=== PATIENT | male | born 1935 | race Caucasian/White ===

== ENCOUNTER 2017-01-14 12:52 | Inpatient (IN) | payer OTHER ==
[2017-01-14] MEDS ORDERED: PIPERACILLIN/TAZOBACTAM 4.5 GM VIAL IVPB ONE (13:28)
[2017-01-14] MEDS ORDERED: ACETAMINOPHEN INJECTION 100 ML IVPB ONE (13:46)
[2017-01-14] MEDS ORDERED: PIPERACILLIN/TAZOB 4.5 GM 100 ML IVPB ONE (13:46)
[2017-01-14] MEDS ORDERED: METRONIDAZOLE 500 MG PREMIXED 100 ML IVPB ONE (13:46)
[2017-01-14 13:52] LABS: MCH 28.8 pg (25.7-33.7); MCHC 32.4 g/dl (32.0-35.9); MEAN CELL VOLUME 89.1 fl (80-96); MEAN PLT VOLUME 7.6 fl (7.5-11.1); PLATELET COUNT 180 K/MM3 (134-434); RDW 16.8 % (11.9-15.9); WHITE BLOOD COUNT 20.3 K/mm3 (4.0-10.0)
[2017-01-14] MEDS ORDERED: ACETAMINOPHEN 1000 MG/100 ML VIAL (NON FORMULARY) IVPB ONE (13:55)
[2017-01-14 13:58] LABS: URINE APPEARANCE CLOUDY; URINE BILIRUBIN NEGATIVE (NEGATIVE); URINE COLOR DKYELLOW; URINE GLUCOSE (UA) 3+ (NEGATIVE); URINE KETONE TRACE (NEGATIVE); URINE NITRITE NEGATIVE (NEGATIVE); URINE UROBILINOGEN NEGATIVE E.U./dl (0.2-1.0)
--- NOTE | 2017-01-14 13:58 | PDOC ---
History of Present Illness - General Stated Complaint: SOB Time Seen by Provider: 01/14/17 13:10 History Source: Patient Exam Limitations: No Limitations - History of Present Illness Travel History: No Initial Comments: 01/14/17 13:58 patient brought by family to emergency Department for worsening abdominal pain, shortness of breath, and high fevers. Was seen by his PMD, Dr. Cadena and prescribed Levaquin for presumed colitis 2 days ago. Has had 2 doses, but his symptoms have progressively become worse. Has complained of abdominal pain, has some distention, and constipation. Denies bleeding from bowels, no diarrhea. Consider fevers were yesterday to received in ER today at 102.6. Has COPD that reports has become mildly short of breath without worsened cough. Denies earache sore throat pain. Has urinary incontinence no complaints of pain or burning. Timing/Duration: reports: getting worse, changing over time Quality: reports: moderate, severe, cramping Abdominal Pain Onset Location: reports: generalized abdomen Pain Radiation: reports: no radiation Activities at Onset: reports: none Past History - Travel Traveled outside of the country in the last 30 days: No Close contact w/someone who was outside of country & ill: No - Past Medical History Allergies/Adverse Reactions: Allergies Allergy/AdvReac Type Severity Reaction Status Date / Time No Known Allergies Allergy Verified 01/14/17 13:31 Home Medications: Ambulatory Orders Aspirin [ASA -] 81 mg PO DAILY 08/05/13 Atenolol [Tenormin -] 25 mg PO DAILY 08/05/13 Furosemide [Lasix -] 40 mg PO DAILY 08/05/13 Hydrocodone Bit/Acetaminophen [Vicodin Es 7.5-750mg -] 1 tab PO Q8H PRN Potassium Chloride [Klor-Con M10] 30 meq PO DAILY 08/05/13 Simvastatin [Zocor -] 40 mg PO HS 08/05/13 Triamcinolone 0.1% Cream [Aristocort 0.1% Cream -] 1 applic TP DAILY #30 gm Fenofibrate Nanocrystallized [Fenofibrate] 145 mg PO DAILY 01/14/17 Furosemide [Lasix] 20 mg PO HS 01/14/17 Glipizide/Metformin HCl [Glipizide-Metformin 5-500 mg] 1 each PO TID 01/14/17 Levofloxacin [Levaquin] 500 mg PO DAILY 01/14/17 Mirabegron [Myrbetriq] 25 mg PO DAILY 01/14/17 Oxybutynin Chloride [Ditropan Xl] 10 mg PO DAILY 01/14/17 Anemia: No Asthma: Yes Cancer: No Cardiac Disorders: No (MILD CHF) CVA: No COPD: Yes CHF: Yes Dementia: No Diabetes: Yes (SINCE 2012-STARTED MEDS) GI Disorders: No Disorders: No HTN: Yes Hypercholesterolemia: Yes Liver Disease: No Seizures: No Thyroid Disease: No - Surgical History Abdominal Surgery: No Appendectomy: No Cardiac Surgery: No Cholecystectomy: No Lung Surgery: No Neurologic Surgery: No Orthopedic Surgery: No - Psycho/Social/Smoking Cessation Hx Suicidal Ideation: No Smoking History: Former smoker Have you smoked in the past 12 months: No If you are a former smoker, when did you quit?: 20 YRS Information on smoking cessation initiated: No Hx Alcohol Use: No Drug/Substance Use Hx: No Substance Use Type: Alcohol Abd/GI Specific PMHX - Complaint Specific PMHX Colitis: Yes Review of Systems - Review of Systems Able to Perform ROS?: Yes Is the patient limited [place] proficient: Yes Constitutional: Yes: Symptoms Reported, See HPI, Chills, Fever, Malaise, Weakness HEENTM: Yes: See HPI. No: Symptoms Reported Respiratory: Yes: Symptoms reported, See HPI, Cough, Orthopnea, Shortness of Breath. No: Wheezing Cardiac (ROS): No: Symptoms Reported ABD/GI: Yes: Symptoms Reported, See HPI, Abdominal Distended, Nausea, Poor Appetite, Abdominal cramping : Yes: Incontinence, Urgency, Other. No: Symptoms Reported Musculoskeletal: Yes: Symptoms Reported, Muscle Weakness Integumentary: No: Symptoms Reported Neurological: Yes: See HPI. No: Symptoms reported All Other Systems: Reviewed and Negative *Physical Exam - Vital Signs Last Vital Signs Temp Pulse Resp BP Pulse Ox 102.7 F H 109 H 22 115/63 100 01/14/17 12:55 01/14/17 12:55 01/14/17 12:55 01/14/17 12:55 01/14/17 12:55 - Physical Exam General Appearance: Yes: Nourished, Appropriately Dressed, Apparent Distress, Moderate Distress, Severe Distress HEENT: positive: SHREYAS, Normal ENT Inspection, TMs Normal, Pharynx Normal Neck: positive: Supple. negative: Lymphadenopathy (R), Lymphadenopathy (L) Respiratory/Chest: positive: Lungs Clear (difficult to assess secondary to patent abdominal girth and poor inspiratory effort), Accessory Muscle Use. negative: Normal Breath Sounds, Wheezing Cardiovascular: positive: Regular Rhythm Gastrointestinal/Abdominal: positive: Tender, Protuberent, Distended, Tenderness (diffuse). negative: Normal Bowel Sounds, Guarding Extremity: negative: Normal Capillary Refill (diminished, PVD color changes below knee ), Normal Inspection, Normal Range of Motion (limited due to PVD/ systemic illness) Integumentary: positive: Dry, Warm, Pale, Clammy, Diaphoresis, Swelling Neurologic: positive: derrick man II-XII NML intact, Fully Oriented, Alert, Normal Mood/ Affect, Normal Response, Motor Strength / ED Treatment Course - LABORATORY CBC & Chemistry Diagram: 01/14/17 13:40 01/14/17 13:40 - RADIOLOGY Radiology Studies Ordered: Category Date Time Status CHEST X-RAY PORTABLE* [RAD] Stat Radiology 01/14/17 13:28 Ordered Progress Note - Progress Note Progress Note: Abdominal distention/questionable colitis. Will provide septic workup as patient 's temperature 102.7 rectal, labs obtained, and will start prophylactic antibiotics IV/Tylenol IV for fevers. Will obtain CT Medical Decision Making - Medical Decision Making 01/14/17 17:32 CAT scan of abdomen reveals is 0.7 cm left ureteral stone with mild hydronephrosis and cholelithiasis . No other intra-abdominal pathology including abscess or obstruction. Discussed case with Joaquin. who will admit patient to telemetry for further antibiotics and evaluation. 01/14/17 18:26 01/14/17 18:53 01/14/17 18:54 *DC/Admit/Observation/Transfer Diagnosis at time of Disposition: Sepsis Qualifiers: Sepsis type: sepsis due to unspecified organism Qualified Code(s): A41.9 - Sepsis, unspecified organism - Discharge Dispostion Condition at time of disposition: Stable Admit: Yes
[2017-01-14 14:03] LABS: VENOUS BLOOD GAS HCO3 24.3 meq/L (19-25)
[2017-01-14 14:05] LABS: VENOUS PH 7.39 (7.32-7.42)
[2017-01-14 14:06] LABS: INR 1.44 (0.82-1.09)
[2017-01-14 14:07] LABS: URINE BLOOD 2+ (NEGATIVE); URINE LEUK ESTERASE TRACE (NEGATIVE); URINE PROTEIN 2+ (NEGATIVE)
[2017-01-14 14:09] LABS: ACTIVATED PTT 30.8 SECONDS (26.9-34.4); URINE MUCUS RARE; URINE RBC 39 /hpf (0-3); URINE WBC 26 /hpf (3-5); YEAST RARE
[2017-01-14 14:45] LABS: ALBUMIN 3.1 g/dl (3.4-5.0); ALK PHOS 58 U/L (45-117); ANION GAP 14 (8-16); CALCIUM 9.3 mg/dL (8.5-10.1); CO2 24 mmol/L (21-32); GLUCOSE,RANDOM 174 mg/dL (74-106); SGOT/AST 28 U/L (15-37); SGPT/ALT 25 U/L (12-78)
[2017-01-14 14:47] LABS: TROPONIN I < 0.02 ng/ml (0.00-0.05)
--- NOTE | 2017-01-14 15:28 | EKG ---
Test Reason : Blood Pressure : / mmHG Vent. Rate : 108 BPM Atrial Rate : 108 BPM P-R Int : 148 ms QRS Dur : 130 ms QT Int : 358 ms P-R-T Axes : 025 087 040 degrees QTc Int : 479 ms SINUS TACHYCARDIA RIGHT BUNDLE BRANCH BLOCK ABNORMAL ECG WHEN COMPARED WITH ECG OF 20-OCT-2010 15:11, RIGHT BUNDLE BRANCH BLOCK HAS REPLACED INCOMPLETE RIGHT BUNDLE BRANCH BLOCK Confirmed by DANNI PRATHER MD ([id number]) on 01/14/2017 3:27:52 PM Referred By: Confirmed By:DANNI PRATHER MD
--- NOTE | 2017-01-14 18:37 | HP ---
Admitting History and Physical - Primary Care Physician PCP: Mohamud Cadena - Admission Chief Complaint: abd/bck pain, malaise, chills for 4-5 days. History of Present Illness: left sided back pain, abd. pain and distension for 4-5 days. today he felt very weak with chills, nausea so came to er. last BM 6 days ago. saw yesterday, started levaquin 500 mg po. History Source: Patient, Family Member Limitations to Obtaining History: No Limitations - Past Medical History Cardiovascular: Yes: CHF (nuclear stress test 11.16 EF 68%, no ischemia), HTN Pulmonary: Yes: Asthma, COPD Renal/: Yes: Renal Calculi Musculoskeletal: Yes: Osteoarthritis, Other (spinal stenosis) Endocrine: Yes: Diabetes Mellitus, Other (obesity) - Past Surgical History Additional Past Surgical History: lithotripsy over 10 yrs ago - Smoking History Smoking history: Former smoker Have you smoked in the past 12 months: No If you are a former smoker, when did you quit?: 20 YRS - Alcohol/Substance Use Hx Alcohol Use: No - Social History Usual Living Arrangement: Yes: With Spouse ADL: Independent History of Recent Travel: No Home Medications - Allergies Allergies/Adverse Reactions: Allergies Allergy/AdvReac Type Severity Reaction Status Date / Time No Known Allergies Allergy Verified 01/14/17 13:31 - Home Medications Home Medications: Ambulatory Orders Aspirin [ASA -] 81 mg PO DAILY 08/05/13 Atenolol [Tenormin -] 25 mg PO DAILY 08/05/13 Furosemide [Lasix -] 40 mg PO DAILY 08/05/13 Hydrocodone Bit/Acetaminophen [Vicodin Es 7.5-750mg -] 1 tab PO Q8H PRN Potassium Chloride [Klor-Con M10] 30 meq PO DAILY 08/05/13 Simvastatin [Zocor -] 40 mg PO HS 08/05/13 Triamcinolone 0.1% Cream [Aristocort 0.1% Cream -] 1 applic TP DAILY #30 gm Fenofibrate Nanocrystallized [Fenofibrate] 145 mg PO DAILY 01/14/17 Furosemide [Lasix] 20 mg PO HS 01/14/17 Glipizide/Metformin HCl [Glipizide-Metformin 5-500 mg] 1 each PO TID 01/14/17 Levofloxacin [Levaquin] 500 mg PO DAILY 01/14/17 Mirabegron [Myrbetriq] 25 mg PO DAILY 01/14/17 Oxybutynin Chloride [Ditropan Xl] 10 mg PO DAILY 01/14/17 Family Disease History - Family Disease History Family History: Unremarkable Review of Systems - Review of Systems Constitutional: reports: Chills, Fever, Loss of Appetite Neck: denies: No Symptoms Cardiovascular: denies: No Symptoms Respiratory: reports: Exercise Intolerance, Orthopnea Gastrointestinal: reports: Bloating, Constipation Genitourinary: denies: No Symptoms Musculoskeletal: reports: Back Pain, Muscle Weakness Neurological: denies: No Symptoms Endocrine: denies: No Symptoms Psychiatric: denies: No Symptoms Physical Examination Vital Signs: Vital Signs Temperature 98.2 F 01/14/17 17:31 Pulse Rate 78 01/14/17 17:31 Respiratory Rate 18 01/14/17 17:37 Blood Pressure 104/61 01/14/17 17:31 O2 Sat by Pulse Oximetry (%) 100 01/14/17 17:37 Findings/Remarks: 102 temp on arrival Constitutional: Yes: Calm, Obese Eyes: Yes: Conjunctiva Clear HENT: Yes: Atraumatic Neck: Yes: Trachea Midline Cardiovascular: Yes: Regular Rate and Rhythm Respiratory: Yes: CTA Bilaterally Gastrointestinal: Yes: Normal Bowel Sounds, Abdomen, Obese, Distention, Tenderness (LLQ), Other (left sided tenderness). No: Tenderness, Rebound Musculoskeletal: Yes: Back Pain, Joint Stiffness Extremities: Yes: Other (chronic stasis dermatitis) Edema: No Peripheral Pulses WNL: Yes Integumentary: Yes: WNL Neurological: Yes: WNL ...Motor Strength: WNL Psychiatric: Yes: WNL Labs: Laboratory Results - last 24 hr 01/14/17 01/14/17 01/14/17 13:40 13:40 13:40 WBC 20.3 H RBC 5.32 Hgb 15.3 Hct 47.4 MCV 89.1 MCHC 32.4 RDW 16.8 H Plt Count 180 MPV 7.6 Neutrophils % 89.0 H Lymphocytes % 3.0 L Monocytes % 5.0 Band Neutrophils 2.0 Differential Comment Manual diff done Reactive Lymphocytes 1 INR 1.44 H PTT (Actin FS) 30.8 VBG pH POC VBG pCO2 POC VBG pO2 Mixed VBG HCO3 Sodium Potassium Chloride Carbon Dioxide Anion Gap BUN Creatinine Creat Clearance w eGFR Random Glucose Lactic Acid Calcium Total Bilirubin AST ALT Alkaline Phosphatase Creatine Kinase Troponin I B-Natriuretic Peptide Total Protein Albumin Urine Color Dkyellow Urine Appearance Cloudy Urine pH 5.0 Ur Specific [place] 1.020 Urine Protein 2+ H Urine Glucose (UA) 3+ H Urine Ketones Trace H Urine Blood 2+ H Urine Nitrite Negative Urine Bilirubin Negative Urine Urobilinogen Negative Ur Leukocyte Esterase Trace H Urine RBC 39 Urine WBC 26 Ur Epithelial Cells Rare Urine Mucus Rare Urine Yeast Rare Blood Type Antibody Screen 01/14/17 01/14/17 01/14/17 13:40 13:40 13:40 WBC RBC Hgb Hct MCV MCHC RDW Plt Count MPV Neutrophils % Lymphocytes % Monocytes % Band Neutrophils Differential Comment Reactive Lymphocytes INR PTT (Actin FS) VBG pH POC VBG pCO2 POC VBG pO2 Mixed VBG HCO3 Sodium 139 Potassium 4.1 Chloride 101 Carbon Dioxide 24 Anion Gap 14 BUN 50 H Creatinine 3.0 H Creat Clearance w eGFR 20.24 Random Glucose 174 H Lactic Acid 1.416 Calcium 9.3 Total Bilirubin 1.0 AST 28 ALT 25 Alkaline Phosphatase 58 Creatine Kinase 93 Troponin I < 0.02 B-Natriuretic Peptide 1680.78 H Total Protein 7.0 Albumin 3.1 L Urine Color Urine Appearance Urine pH Ur Specific [place] Urine Protein Urine Glucose (UA) Urine Ketones Urine Blood Urine Nitrite Urine Bilirubin Urine Urobilinogen Ur Leukocyte Esterase Urine RBC Urine WBC Ur Epithelial Cells Urine Mucus Urine Yeast Blood Type A POSITIVE Antibody Screen Negative 01/14/17 01/14/17 13:59 15:39 WBC RBC Hgb Hct MCV MCHC RDW Plt Count MPV Neutrophils % Lymphocytes % Monocytes % Band Neutrophils Differential Comment Reactive Lymphocytes INR PTT (Actin FS) VBG pH 7.39 POC VBG pCO2 41.4 POC VBG pO2 47.5 Mixed VBG HCO3 24.3 Sodium Potassium Chloride Carbon Dioxide Anion Gap BUN Creatinine Creat Clearance w eGFR Random Glucose Lactic Acid 1.240 Calcium Total Bilirubin AST ALT Alkaline Phosphatase Creatine Kinase Troponin I B-Natriuretic Peptide Total Protein Albumin Urine Color Urine Appearance Urine pH Ur Specific [place] Urine Protein Urine Glucose (UA) Urine Ketones Urine Blood Urine Nitrite Urine Bilirubin Urine Urobilinogen Ur Leukocyte Esterase Urine RBC Urine WBC Ur Epithelial Cells Urine Mucus Urine Yeast Blood Type Antibody Screen Imaging - Results Chest X-ray: Report Reviewed (mild cardiomegaly) Cat Scan: Report Reviewed (dist left ureter partially obstructing stone with associated moderate hydronephrosis and stranding) Problem List - Problems (1) Sepsis Code(s): A41.9 - SEPSIS, UNSPECIFIED ORGANISM Qualifiers: Sepsis type: sepsis due to unspecified organism Qualified Code(s): A41.9 - Sepsis, unspecified organism (2) Renal stones Code(s): N20.0 - CALCULUS OF KIDNEY (3) Hydronephrosis of left kidney Code(s): N13.30 - UNSPECIFIED HYDRONEPHROSIS (4) COPD (chronic obstructive pulmonary disease) Code(s): J44.9 - CHRONIC OBSTRUCTIVE PULMONARY DISEASE, UNSPECIFIED Qualifiers : COPD type: unspecified COPD Qualified Code(s): J44.9 - Chronic obstructive pulmonary disease, unspecified (5) HTN (hypertension) Code(s): I10 - ESSENTIAL (PRIMARY) HYPERTENSION Qualifiers: Hypertension type: essential hypertension Qualified Code(s): I10 - Essential (primary) hypertension (6) Obesity Code(s): E66.9 - OBESITY, UNSPECIFIED Qualifiers: Obesity type: due to excess calories Obesity severity: morbid Qualified Code(s): E66.01 - Morbid (severe) obesity due to excess calories (7) Diabetes mellitus Code(s): E11.9 - TYPE 2 DIABETES MELLITUS WITHOUT COMPLICATIONS Qualifiers: Diabetes mellitus type: type 2 Diabetes mellitus complication status: with unspecified complications Diabetes mellitus exterminator termite insulin use: with senior living use Qualified Code(s): E11.8 - Type 2 diabetes mellitus with unspecified complications; Z79.4 - skilled nursing (current) use of insulin (8) CHF (congestive heart failure) Code(s): I50.9 - HEART FAILURE, UNSPECIFIED Qualifiers: Congestive heart failure type: unspecified congestive heart failure type Congestive heart failure chronicity: chronic Qualified Code(s): I50.9 - Heart failure, unspecified Assessment/Plan gentle iv hydration iv abx adjusted to current renal fnct. (baseline creat. 1.4) f/up cultures ID/urology evaluation hold oral antiglycemics, lasix RISS/levemir
[2017-01-14 18:40] VITALS: BMI 40.7
[2017-01-14] MEDS ORDERED: OXYCODONE/APAP 5/325MG COMBO TABLET PO PRN (18:55)
[2017-01-14] MEDS ORDERED: SODIUM CHLORIDE 0.45% 1,000 ML IV SCH (19:00)
[2017-01-14] MEDS ORDERED: ACETAMINOPHEN 325 MG TABLET (FP) PO PRN ×2 (19:01→19:02)
[2017-01-14] MEDS ORDERED: oxyCODONE HCL 5 MG TABLET PO PRN ×2 (19:01→19:02)
[2017-01-14] MEDS: PIPERACILLIN/TAZOB 2.25 GM 50 ML IVPB SCH (20:21)
[2017-01-14] MEDS: ACETAMINOPHEN 325 MG TABLET (FP) PO PRN (20:23)
[2017-01-14] MEDS ORDERED: INSULIN (NOVOLOG) ASPART 100 UNITS/ML 10ML VIAL ONE (21:31)
[2017-01-14] MEDS: ATORVASTATIN CA 20 MG TABLET (FP) PO SCH (21:37)
[2017-01-14] MEDS: INSULIN SLIDING SCALE (NOVOLOG) 1 VIAL SQ SCH (21:38)
[2017-01-14] MEDS: INSULIN DETEMIR 100 UNITS/ML MDV SQ SCH (21:38)
[2017-01-14] MEDS: ALBUTEROL SO4 0.083% IH SOL 2.5 MG/3 ML VIAL.NEB. NEB PRN (22:42)
[2017-01-15] MEDS ORDERED: PIPERACILLIN/TAZOB 2.25 GM 2.25 GM in DEXTROSE 5%-WATER - 50 ML IVPB SCH (03:00)
[2017-01-15] MEDS: PIPERACILLIN/TAZOB 2.25 GM 50 ML IVPB SCH ×4 (03:26→21:47)
[2017-01-15] MEDS: INSULIN SLIDING SCALE (NOVOLOG) 1 VIAL SQ SCH ×4 (06:01→21:15)
[2017-01-15] MEDS: ALBUTEROL SO4 0.083% IH SOL 2.5 MG/3 ML VIAL.NEB. NEB PRN ×3 (06:15→22:11)
[2017-01-15 07:12] LABS: BASOPHIL 0.1 % (0-2.0); EOSINOPHIL 0.1 % (0-4.5); MCH 28.9 pg (25.7-33.7); MCHC 32.4 g/dl (32.0-35.9); MEAN PLT VOLUME 7.7 fl (7.5-11.1); NEUTROPHILS 88.1 % (42.8-82.8); PLATELET COUNT 159 K/MM3 (134-434); RDW 17.4 % (11.9-15.9)
[2017-01-15 07:43] LABS: INR 1.46 (0.82-1.09); PROTHROMBIN TIME (PATIENT) 16.2 SEC (9.98-11.88)
[2017-01-15 07:48] LABS: ALBUMIN 2.8 g/dl (3.4-5.0); CALCIUM 8.6 mg/dL (8.5-10.1); CREATININE 3.1 mg/dL (0.7-1.3)
[2017-01-15 07:50] LABS: BILIRUBIN,TOTAL 0.8 mg/dL (0.2-1.0); TOT PROT 6.3 g/dl (6.4-8.2)
--- NOTE | 2017-01-15 08:32 | PN ---
Progress Note, Physician Chief Complaint: ID Zomagdin now report of GNB in blood - Current Medication List Current Medications: Active Medications Acetaminophen (Tylenol -) 650 mg PO Q4H PRN PRN Reason: FEVER OR PAIN Last Admin: 01/14/17 20:23 Dose: 650 mg Acetaminophen (Tylenol -) 325 mg PO Q4H PRN PRN Reason: PAIN Stop: 01/17/17 19:00 Last Admin: 01/15/17 03:32 Dose: 325 mg Acetaminophen (Tylenol -) 650 mg PO Q4H PRN PRN Reason: PAIN Stop: 01/17/17 19:01 Albuterol Sulfate (Ventolin 0.083% Nebulizer Soln -) 1 amp NEB Q4H PRN PRN Reason: SHORT OF BREATH/WHEEZING Last Admin: 01/15/17 06:15 Dose: 1 amp Atorvastatin Calcium (Lipitor -) 20 mg PO HS [facility] Last Admin: 01/14/17 21:37 Dose: 20 mg Bisacodyl (Dulcolax -) 10 mg PO ONCE ONE Stop: 01/15/17 08:24 Piperacillin Sod/Tazobactam Sod (Zosyn 2.25gm Ivpb (Pre-Docked)) 50 mls @ 100 mls/hr IVPB Q6H-IV JAVY PRN Reason: Protocol Sodium Chloride (1/2 Normal Saline) 1,000 mls @ 75 mls/hr IV ASDIR JAVY Last Admin: 01/14/17 20:22 Dose: 75 mls/hr Insulin Aspart (Novolog Vial Sliding Scale -) 1 vial SQ ACHS JAVY PRN Reason: Protocol Last Admin: 01/15/17 06:01 Dose: Not Given Insulin Detemir (Levemir Vial) 10 units SQ HS [facility] Last Admin: 01/14/17 21:38 Dose: 10 units Oxycodone HCl (Roxicodone -) 5 mg PO Q4H PRN PRN Reason: PAIN SCALE 1-5 Last Admin: 01/15/17 03:31 Dose: 5 mg Oxycodone HCl (Roxicodone -) 10 mg PO Q4H PRN PRN Reason: PAIN SCALE 6-10 Last Admin: 01/14/17 20:22 Dose: 10 mg Polyethylene Glycol (Miralax (For Daily Use) -) 17 gm PO DAILY [facility] - Objective Vital Signs: Vital Signs Temperature 99.3 F 01/15/17 07:29 Pulse Rate 92 H 01/15/17 07:29 Respiratory Rate 18 01/15/17 07:29 Blood Pressure 101/57 01/15/17 07:29 O2 Sat by Pulse Oximetry (%) 97 01/14/17 20:27 Constitutional: Yes: Obese Neck: Yes: WNL, Supple Cardiovascular: Yes: S1, S2 Respiratory: Yes: WNL, Regular, CTA Bilaterally Gastrointestinal: Yes: WNL, Normal Bowel Sounds, Distention Edema: No Labs: CBC, BMP 01/15/17 06:10 01/15/17 06:10 INR, PTT INR 1.46 (0.82-1.09) H 01/15/17 06:10 Problem List - Problems (1) Hydronephrosis of left kidney Code(s): N13.30 - UNSPECIFIED HYDRONEPHROSIS (2) UTI (urinary tract infection) Code(s): N39.0 - URINARY TRACT INFECTION, SITE NOT SPECIFIED (3) Gram-positive bacteremia Code(s): A49.9 - BACTERIAL INFECTION, UNSPECIFIED Assessment/Plan Microbiology 01/14/17 13:40 Blood - Peripheral Venous Blood Culture - Preliminary Pending Organism 01/14/17 13:40 Blood - Peripheral Venous Blood Culture - Preliminary Pending Organism Laboratory Tests 01/14/17 01/14/17 01/15/17 13:40 13:40 06:10 WBC 20.3 H 18.0 H Hgb 14.1 Hct 43.6 Plt Count 159 INR BUN Creatinine Creat Clearance w eGFR Ur Leukocyte Esterase Trace H Urine RBC 39 Urine WBC 26 01/15/17 01/15/17 06:10 06:10 WBC Hgb Hct Plt Count INR 1.46 H BUN 56 H Creatinine 3.1 H Creat Clearance w eGFR 19.48 Ur Leukocyte Esterase Urine RBC Urine WBC Assessment Kidney stone hydronephrosis Urinary infection Gram positive in blood ? SCN contaminants Plan Continue Zosyn Urology evaluation Blood cultures Vancomcycin 1.5gr x 1 JOSE RAUL Garcia MD
[2017-01-15] MEDS ORDERED: BISACODYL 5 MG TABLET.DR (FP) PO ONE (08:45)
[2017-01-15] MEDS ORDERED: PIPERACILLIN/TAZOB 2.25 GM 50 ML IVPB SCH (09:00)
--- NOTE | 2017-01-15 09:02 | PN ---
Progress Note (short form) - Note Progress Note: Feels little more short of breath today. Has not had a BM for a week. CBC, BMP 01/15/17 06:10 01/15/17 06:10 Vital Signs Period Temp Pulse Resp BP Sys/[place] Pulse Ox Last 24 Hr 98.2 F-102.7 F 78-109 18-73 101-127/57-75 97-100 BCx GPC in clusters S1S2 RRR basal crackles Abd distended +BS no edema aaox3 Imp Obstructive uropathy Ureteral stones gram pos. bacteremia? DM Obesity h/o CHF COPD Constipation Plan iv abx urological procedure once bacteremia under control decrease iv fluids in view of breathing issues to avoid fluid overload hold oral antiglycemics laxatives Problem List - Problems (1) Sepsis Code(s): A41.9 - SEPSIS, UNSPECIFIED ORGANISM Qualifiers: Sepsis type: sepsis due to unspecified organism Qualified Code(s): A41.9 - Sepsis, unspecified organism (2) Renal stones Code(s): N20.0 - CALCULUS OF KIDNEY (3) Hydronephrosis of left kidney Code(s): N13.30 - UNSPECIFIED HYDRONEPHROSIS (4) COPD (chronic obstructive pulmonary disease) Code(s): J44.9 - CHRONIC OBSTRUCTIVE PULMONARY DISEASE, UNSPECIFIED Qualifiers : COPD type: unspecified COPD Qualified Code(s): J44.9 - Chronic obstructive pulmonary disease, unspecified (5) HTN (hypertension) Code(s): I10 - ESSENTIAL (PRIMARY) HYPERTENSION Qualifiers: Hypertension type: essential hypertension Qualified Code(s): I10 - Essential (primary) hypertension (6) Obesity Code(s): E66.9 - OBESITY, UNSPECIFIED Qualifiers: Obesity type: due to excess calories Obesity severity: morbid Qualified Code(s): E66.01 - Morbid (severe) obesity due to excess calories (7) Diabetes mellitus Code(s): E11.9 - TYPE 2 DIABETES MELLITUS WITHOUT COMPLICATIONS Qualifiers: Diabetes mellitus type: type 2 Diabetes mellitus complication status: with unspecified complications Diabetes mellitus alf insulin use: with alf use Qualified Code(s): E11.8 - Type 2 diabetes mellitus with unspecified complications; Z79.4 - terminal manager (current) use of insulin (8) CHF (congestive heart failure) Code(s): I50.9 - HEART FAILURE, UNSPECIFIED Qualifiers: Congestive heart failure type: unspecified congestive heart failure type Congestive heart failure chronicity: chronic Qualified Code(s): I50.9 - Heart failure, unspecified
[2017-01-15] MEDS ORDERED: SODIUM CHLORIDE 0.45% 1,000 ML IV SCH (09:03)
--- NOTE | 2017-01-15 09:37 | CON.NEP ---
Consult Consult Specialty:: Nephrology Referred by:: Dr Kenyon Reason for Consultation:: REMY on CKD - History of Present Illness Chief Complaint: fever chills History of Present Illness: 81 year old with DM HTN baseline Cr 1.03 sep 2016 obesity in with fever chills Has pos blood cultures gram pos cocci On Zosyn about to get his first vanco dose Blood cultures redrawn prior to vanco Unable to get asecond set Shaking with chills Voiding on his own Denies pain Had a ureteral stone 7mm with hydro Does not recall passing it - History Source History Provided By: Medical Record Limitations to Obtaining History: Other (pt too sick to give details) - Past Medical History Cardio/Vascular: Yes: CHF (nuclear stress test 11.16 EF 68%, no ischemia), HTN Pulmonary: Yes: Asthma, COPD Renal/: Yes: Renal Calculi Musculoskeletal: Yes: Osteoarthritis, Other (spinal stenosis) Endocrine: Yes: Diabetes Mellitus, Other (obesity) - Alcohol/Substance Use Hx Alcohol Use: No - Smoking History Smoking history: Former smoker Have you smoked in the past 12 months: No If you are a former smoker, when did you quit?: 20 YRS - Social History ADL: Independent History of Recent Travel: No Home Medications - Allergies Allergies/Adverse Reactions: Allergies Allergy/AdvReac Type Severity Reaction Status Date / Time No Known Allergies Allergy Verified 01/14/17 13:31 - Home Medications Home Medications: Ambulatory Orders Aspirin [ASA -] 81 mg PO DAILY 08/05/13 Atenolol [Tenormin -] 25 mg PO DAILY 08/05/13 Furosemide [Lasix -] 40 mg PO DAILY 08/05/13 Hydrocodone Bit/Acetaminophen [Vicodin Es 7.5-750mg -] 1 tab PO Q8H PRN Potassium Chloride [Klor-Con M10] 30 meq PO DAILY 08/05/13 Simvastatin [Zocor -] 40 mg PO HS 08/05/13 Triamcinolone 0.1% Cream [Aristocort 0.1% Cream -] 1 applic TP DAILY #30 gm Fenofibrate Nanocrystallized [Fenofibrate] 145 mg PO DAILY 01/14/17 Furosemide [Lasix] 20 mg PO HS 01/14/17 Glipizide/Metformin HCl [Glipizide-Metformin 5-500 mg] 1 each PO TID 01/14/17 Insulin (Levemir) [Levemir Flexpen -] 10 units SQ DAILY 01/14/17 Levofloxacin [Levaquin] 500 mg PO DAILY 01/14/17 Mirabegron [Myrbetriq] 25 mg PO DAILY 01/14/17 Oxybutynin Chloride [Ditropan Xl] 10 mg PO DAILY 01/14/17 Review of Systems Unable to obtain ROS, reason: cchills Nephrology Consult - Height Height: 5 ft 3 in - Weight Weight: 230 lb - BMI Body Mass Index (BMI): 40.7 - Lab Results CBC,BMP: CBC, BMP 01/15/17 06:10 01/15/17 06:10 Anion Gap: Anion Gap Anion Gap 13 (8-16) 01/15/17 06:10 - Imaging Chest X-ray: Report Reviewed Cat Scan: Report Reviewed - Physical Examination Vital Signs: Vital Signs Temperature 99.3 F 01/15/17 07:29 Pulse Rate 92 H 01/15/17 07:29 Respiratory Rate 18 01/15/17 07:29 Blood Pressure 101/57 01/15/17 07:29 O2 Sat by Pulse Oximetry (%) 97 01/14/17 20:27 Constitutional: Yes: Obese Respiratory: Yes: Wheezes Gastrointestinal: Yes: Abdomen, Obese, Other (non tender) Edema: Yes (trace) Assessment/Plan 81 year old with DM obesity In with REMY on ckd baselien cr 1.4 Now with pos blood cultures agree with vanco zosyn Follow cultures Strain all urine Document output Agree with lowering rate of IVF to 40/hr agree with holding lasix BP ok SEnd stone for stone analysis Urology eval Dose all meds for a CrCl of 30
[2017-01-15] MEDS: ACETAMINOPHEN 325 MG TABLET (FP) PO PRN (09:41)
[2017-01-15] MEDS: POLYETHYLENE GLYCOL 3350 119 GM BTL PO SCH (09:43)
[2017-01-15] MEDS ORDERED: VANCOMYCIN 1,500 MG in DEXTROSE 5%-WATER - 500 ML IVPB ONE (10:00)
[2017-01-15] MEDS ORDERED: ATENOLOL 25 MG TABLET (FP) PO SCH (10:00)
--- NOTE | 2017-01-15 10:51 | CONSULT ---
Consult Consult Specialty:: urology Reason for Consultation:: left ureteral calculus. - History of Present Illness Chief Complaint: left ureteral calculus History of Present Illness: 81 year old male with UTI and obstructing left ureteral calclulus. Tm101.7 WBC 18,000. patient states that he feels well. - History Source History Provided By: Patient Limitations to Obtaining History: No Limitations - Past Medical History Cardio/Vascular: Yes: CHF (nuclear stress test 11.16 EF 68%, no ischemia), HTN Pulmonary: Yes: Asthma, COPD Renal/: Yes: BPH, Renal Calculi, UTI Musculoskeletal: Yes: Osteoarthritis, Other (spinal stenosis) Endocrine: Yes: Diabetes Mellitus, Other (obesity) - Alcohol/Substance Use Hx Alcohol Use: No - Smoking History Smoking history: Former smoker Have you smoked in the past 12 months: No If you are a former smoker, when did you quit?: 20 YRS - Social History ADL: Independent History of Recent Travel: No Home Medications - Allergies Allergies/Adverse Reactions: Allergies Allergy/AdvReac Type Severity Reaction Status Date / Time No Known Allergies Allergy Verified 01/14/17 13:31 - Home Medications Home Medications: Ambulatory Orders Aspirin [ASA -] 81 mg PO DAILY 08/05/13 Atenolol [Tenormin -] 25 mg PO DAILY 08/05/13 Furosemide [Lasix -] 40 mg PO DAILY 08/05/13 Hydrocodone Bit/Acetaminophen [Vicodin Es 7.5-750mg -] 1 tab PO Q8H PRN Potassium Chloride [Klor-Con M10] 30 meq PO DAILY 08/05/13 Simvastatin [Zocor -] 40 mg PO HS 08/05/13 Triamcinolone 0.1% Cream [Aristocort 0.1% Cream -] 1 applic TP DAILY #30 gm Fenofibrate Nanocrystallized [Fenofibrate] 145 mg PO DAILY 01/14/17 Furosemide [Lasix] 20 mg PO HS 01/14/17 Glipizide/Metformin HCl [Glipizide-Metformin 5-500 mg] 1 each PO TID 01/14/17 Insulin (Levemir) [Levemir Flexpen -] 10 units SQ DAILY 01/14/17 Levofloxacin [Levaquin] 500 mg PO DAILY 01/14/17 Mirabegron [Myrbetriq] 25 mg PO DAILY 01/14/17 Oxybutynin Chloride [Ditropan Xl] 10 mg PO DAILY 01/14/17 Review of Systems - Review of Systems Constitutional: reports: Fever Genitourinary: reports: Flank Pain Physical Exam Vital Signs: Vital Signs Temperature 101.7 F H 01/15/17 09:45 Pulse Rate 90 01/15/17 09:45 Respiratory Rate 20 01/15/17 09:45 Blood Pressure 149/67 01/15/17 09:45 O2 Sat by Pulse Oximetry (%) 99 01/15/17 09:32 Constitutional: Yes: Well Nourished, No Distress, Calm Gastrointestinal: Yes: Soft Renal/: No: Bladder Distention, CVA Tenderness - Left, CVA Tenderness - Right , Bermudez Present Labs: CBC, BMP 01/15/17 06:10 01/15/17 06:10 Imaging - Results Cat Scan: Report Reviewed Problem List - Problems (1) Calculus of distal left ureter Assessment/Plan: patient with obstructing stone, UTI. clinical scenario consistent with urosepsis. Recommend urgent drainage. Patient ate this morning and cannot have general anesthesia for eight hours. Interventional radiology consulted for nephrostomy tube. SPoke with patient and his daughter. Hydration and antibiotics. Code(s): N20.1 - CALCULUS OF URETER
[2017-01-15 10:54] LABS: C-REACTIVE PROTEIN 29.9 MG/DL (0.00-0.3)
--- NOTE | 2017-01-15 15:03 | CONS ---
INFECTIOUS DISEASE CONSULT DATE OF CONSULTATION: DATE OF DICTATION: 01/15/2017 HISTORY OF PRESENT ILLNESS: This is an 81-year-old [place] male admitted with renal failure secondary to hydronephrosis who I am asked to see for positive blood cultures. He had presented to his primary care doctor with a 5-day history of abdominal and back pain with generalized malaise, intermittent chills, going on for 4-5 days. He also noted abdominal distention, noting that he has not had a bowel movement in a week. He saw Dr. Cadena who apparently started him on levofloxacin. He came to the emergency room where he had a CAT scan done, which showed a 7-mm distal left ureteral calculus with moderate hydronephrosis. Chololithiasis was also noted. The patient's temperature on admission was 102.7. He was empirically given Pipracil and tazobactam. As of this morning, 2 sets of blood cultures obtained on admission have gram-positive cocci in clusters, growing from anaerobic bottles in both sets. The patient has no history of urinary manipulation recently. The patient has no history of valvular heart disease. PAST MEDICAL HISTORY: Past medical history includes: 1. Congestive heart failure though nuclear stress test 10/16/ejection fraction 68% with no ischemia. 2. Hypertension 3. Asthma 4. COPD 5. Osteoarthritis 6. Spinal stenosis 7. Diabetes mellitus 8. Obesity 9. History of lithotripsy 10 years ago MEDICATIONS: 1. Aspirin 2. Atenolol 3. Lasix 4. Hydrocodone 5. Simvastatin 6. Fenofibrate 7. Glipizide 8. Metformin 9. Levothyroxine ALLERGIES: None known. SOCIAL HISTORY: Former smoker. [place] male. No recent travel. No history of alcohol use. FAMILY HISTORY: Family history reviewed and noncontributory. REVIEW OF SYSTEMS: Respiratory: No cough, no shortness of breath, no hemoptysis, sputum production. Cardiac: No chest pain, palpitations, syncope, murmur. GI: Abdominal distention, constipation, abdominal pain, currently minimal to none. Rectal: No blood per rectum, hematemesis. : No dysuria, hematuria or urinary frequency. PHYSICAL EXAMINATION: General: He was an alert male in no acute distress. Vital signs: Temperature was 99.3, pulse 92, blood pressure 100/57, respirations 18. O2 saturation 97%/2 liters. HEENT: Neck supple, no adenopathy. Lungs: Diminished breath sounds bilaterally. Heart: S1, S2, regular rhythm with no audible murmur. Abdomen: The abdomen was distended. Positive bowel sounds noted. No focal tenderness, guarding or rebound, palpable mass. Extremities: Without clubbing, cyanosis or edema. LABS: The white count is 20,000, hemoglobin 15.3, platelets 180, INR 1.46, BUN 56, creatinine 3.1. Liver enzymes within normal limits. Urinalysis: 39 RBCs, 26 WBCs, trace leukocyte esterase, 3+ glucose, 2+ protein. ASSESSMENT: 81-year-old male presents not feeling well with abdominal discomfort, fever, chills, abdominal distention, found to have a kidney stone with hydronephrosis and acute renal failure, complicating urinary tract infection, report of positive blood culture, gram positive cocci from anaerobic bottles/surprising and potentially could represent contamination with a coagulase-negative staphylococcus, but at this point needs treatment. . RECOMMENDATIONS: 1. As discussed with Dr. Chao, would continue him on Zosyn for gram- negative coverage of urinary tract pathogens, pending urine culture and add vancomycin based on body weight, 1.5 grams x 1 dose. Would 2. Would get repeat blood cultures on him before dosing with vancomycin. 3. Obtain a CRP level 4. Obtain a weight urology consult regarding management ureteral stone. RAIN SANTACRUZ M.D. BRIGIDA/[id number]
[2017-01-15] MEDS: INSULIN DETEMIR 100 UNITS/ML MDV SQ SCH (21:47)
[2017-01-15] MEDS: ATORVASTATIN CA 20 MG TABLET (FP) PO SCH (21:48)
[2017-01-16] MEDS: PIPERACILLIN/TAZOB 2.25 GM 50 ML IVPB SCH ×4 (03:16→21:20)
[2017-01-16] MEDS: INSULIN SLIDING SCALE (NOVOLOG) 1 VIAL SQ SCH ×4 (06:00→21:12)
[2017-01-16] MEDS: ALBUTEROL SO4 0.083% IH SOL 2.5 MG/3 ML VIAL.NEB. NEB PRN (07:05)
[2017-01-16 07:29] LABS: BASOPHIL 0.2 % (0-2.0); EOSINOPHIL 1.1 % (0-4.5); MCH 29.4 pg (25.7-33.7); MEAN CELL VOLUME 89.2 fl (80-96); MEAN PLT VOLUME 8.1 fl (7.5-11.1); NEUTROPHILS 79.9 % (42.8-82.8); PLATELET COUNT 125 K/MM3 (134-434); RDW 17.3 % (11.9-15.9); WHITE BLOOD COUNT 9.1 K/mm3 (4.0-10.0)
[2017-01-16 07:56] LABS: ALBUMIN 2.5 g/dl (3.4-5.0); BILIRUBIN,TOTAL 0.5 mg/dL (0.2-1.0); CALCIUM 8.4 mg/dL (8.5-10.1); CREATININE 2.3 mg/dL (0.7-1.3); TOT PROT 5.6 g/dl (6.4-8.2)
[2017-01-16] MEDS ORDERED: SODIUM PHOSPHATE/NA BIPHOS 133 ML ENEMA PR ONE (08:45)
--- NOTE | 2017-01-16 08:51 | PN ---
Progress Note (short form) - Note Progress Note: Still short of breath and constipated. Has had left nephrostomy tube placed by IR yesterday. Cystoscopy was also performed. CBC, BMP 01/16/17 05:35 01/16/17 05:35 BCx GPC in clusters Vital Signs Period Temp Pulse Resp BP Sys/Enamorado Pulse Ox Last 24 Hr 97.5 F-101.7 F 67-100 18-20 107-150/61-96 97-100 S1S2 RRR scattered wheezing Abd distended +BS Non tender no edema aaox3 Imp Obstructive uropathy Ureteral stones gram pos. bacteremia M Obesity h/o CHF COPD Constipation Plan iv abx f/up culture results add symbicort stop fluids internalize nephrostomy with stent placement in 7-10 days physical therapy enema Problem List - Problems (1) Sepsis Code(s): A41.9 - SEPSIS, UNSPECIFIED ORGANISM Qualifiers: Sepsis type: sepsis due to unspecified organism Qualified Code(s): A41.9 - Sepsis, unspecified organism (2) Renal stones Code(s): N20.0 - CALCULUS OF KIDNEY (3) Hydronephrosis of left kidney Code(s): N13.30 - UNSPECIFIED HYDRONEPHROSIS (4) COPD (chronic obstructive pulmonary disease) Code(s): J44.9 - CHRONIC OBSTRUCTIVE PULMONARY DISEASE, UNSPECIFIED Qualifiers : COPD type: unspecified COPD Qualified Code(s): J44.9 - Chronic obstructive pulmonary disease, unspecified (5) HTN (hypertension) Code(s): I10 - ESSENTIAL (PRIMARY) HYPERTENSION Qualifiers: Hypertension type: essential hypertension Qualified Code(s): I10 - Essential (primary) hypertension (6) Obesity Code(s): E66.9 - OBESITY, UNSPECIFIED Qualifiers: Obesity type: due to excess calories Obesity severity: morbid Qualified Code(s): E66.01 - Morbid (severe) obesity due to excess calories (7) Diabetes mellitus Code(s): E11.9 - TYPE 2 DIABETES MELLITUS WITHOUT COMPLICATIONS Qualifiers: Diabetes mellitus type: type 2 Diabetes mellitus complication status: with unspecified complications Diabetes mellitus termite control service representative insulin use: with termite control service representative use Qualified Code(s): E11.8 - Type 2 diabetes mellitus with unspecified complications; Z79.4 - terminal operator (current) use of insulin (8) CHF (congestive heart failure) Code(s): I50.9 - HEART FAILURE, UNSPECIFIED Qualifiers: Congestive heart failure type: unspecified congestive heart failure type Congestive heart failure chronicity: chronic Qualified Code(s): I50.9 - Heart failure, unspecified
[2017-01-16] MEDS: POLYETHYLENE GLYCOL 3350 119 GM BTL PO SCH (09:33)
[2017-01-16] MEDS: BUDESONIDE/FORMETEROL FUMARATE 160/4.5 mcg INHALER IH SCH ×2 (09:33→21:20)
[2017-01-16] MEDS: ALBUTEROL SO4 0.083% IH SOL 2.5 MG/3 ML VIAL.NEB. NEB SCH ×3 (11:25→23:28)
--- NOTE | 2017-01-16 16:07 | PN ---
Progress Note (short form) - Note Progress Note: ID Vancomycin and Zosyn day 2 IN good spirits Selected Entries 01/16/17 15:54 Temperature 98.3 F Pulse Rate 75 Respiratory 18 Rate Blood Pressure 132/72 Gross hematuria noted nephrostomy Microbiology 01/15/17 16:15 Nephrostomy Tube Drainage Gram Stain - Final 01/14/17 13:40 Urine - Urine - Catheterized Urine Culture - Final NO GROWTH OBTAINED 01/15/17 09:20 Blood - Peripheral Venous Blood Culture - Preliminary NO GROWTH OBTAINED AFTER 24 HOURS, INCUBATION TO CONTINUE FOR 4 DAYS. 01/14/17 13:40 Blood - Peripheral Venous Blood Culture - Preliminary Staphylococcus Species Pending Organism 01/14/17 13:40 Blood - Peripheral Venous Blood Culture - Preliminary Staphylococcus Coagulase Neg Staphylococcus Species Gram Positive Cocci Gram Positive Cocci#2 Laboratory Tests 01/14/17 01/15/17 01/16/17 13:40 06:10 05:35 WBC 20.3 H 18.0 H 9.1 D Hgb 13.0 Hct 39.3 Plt Count 125 L D Creatinine 01/16/17 05:35 WBC Hgb Hct Plt Count Creatinine 2.3 H D Assessment Obstructive uropathy Blood cultures contamnants Low platelets from infection Plan Contnue Zosyn pending c/s nephrostomy Radha SIMPSON Problem List - Problems (1) Hydronephrosis of left kidney Code(s): N13.30 - UNSPECIFIED HYDRONEPHROSIS (2) UTI (urinary tract infection) Code(s): N39.0 - URINARY TRACT INFECTION, SITE NOT SPECIFIED (3) Gram-positive bacteremia Code(s): A49.9 - BACTERIAL INFECTION, UNSPECIFIED
[2017-01-16] MEDS: ATORVASTATIN CA 20 MG TABLET (FP) PO SCH (21:20)
[2017-01-16] MEDS: INSULIN DETEMIR 100 UNITS/ML MDV SQ SCH (21:20)
[2017-01-16] MEDS: ACETAMINOPHEN 325 MG TABLET (FP) PO PRN (21:21)
[2017-01-16] MEDS ORDERED: PT OWN MED DRAWER 7, Y5N ONE (21:36)
[2017-01-17] MEDS: PIPERACILLIN/TAZOB 2.25 GM 50 ML IVPB SCH ×2 (02:44→09:13)
[2017-01-17] MEDS: INSULIN SLIDING SCALE (NOVOLOG) 1 VIAL SQ SCH ×4 (06:09→21:01)
[2017-01-17] MEDS: ALBUTEROL SO4 0.083% IH SOL 2.5 MG/3 ML VIAL.NEB. NEB SCH ×4 (06:25→23:20)
[2017-01-17 07:00] LABS: BASOPHIL 0.6 % (0-2.0); EOSINOPHIL 3.4 % (0-4.5); MCH 29.5 pg (25.7-33.7); MCHC 33.3 g/dl (32.0-35.9); MEAN CELL VOLUME 88.7 fl (80-96); MEAN PLT VOLUME 8.5 fl (7.5-11.1); NEUTROPHILS 68.7 % (42.8-82.8); PLATELET COUNT 154 K/MM3 (134-434); RDW 17.3 % (11.9-15.9); WHITE BLOOD COUNT 5.8 K/mm3 (4.0-10.0)
[2017-01-17 07:10] LABS: ALBUMIN 2.5 g/dl (3.4-5.0); BILIRUBIN,TOTAL 0.4 mg/dL (0.2-1.0); CALCIUM 8.1 mg/dL (8.5-10.1); CREATININE 1.7 mg/dL (0.7-1.3)
[2017-01-17 07:12] LABS: TOT PROT 5.9 g/dl (6.4-8.2)
--- NOTE | 2017-01-17 08:10 | PN ---
Progress Note (short form) - Note Progress Note: CBC, BMP 01/17/17 05:35 01/17/17 05:35 Vital Signs Period Temp Pulse Resp BP Sys/Enamorado Pulse Ox Last 24 Hr 97.3 F-100.1 F 60-91 18-20 110-146/64-87 98-98 S1S2 RRR lungs clear Abd soft +BS Non tender no edema aaox3 has had 2 large BMs yesterday Imp Obstructive uropathy Ureteral stone ER Blood culture with multiple organisms likely contaminant M Obesity h/o CHF chronic diastolic COPD Constipation Plan iv abx f/up culture results internalize nephrostomy with stent placement in 7-10 days physical therapy dc planning with VNS once on oral abx Problem List - Problems (1) Sepsis Code(s): A41.9 - SEPSIS, UNSPECIFIED ORGANISM Qualifiers: Sepsis type: sepsis due to unspecified organism Qualified Code(s): A41.9 - Sepsis, unspecified organism (2) Renal stones Code(s): N20.0 - CALCULUS OF KIDNEY (3) Hydronephrosis of left kidney Code(s): N13.30 - UNSPECIFIED HYDRONEPHROSIS (4) COPD (chronic obstructive pulmonary disease) Code(s): J44.9 - CHRONIC OBSTRUCTIVE PULMONARY DISEASE, UNSPECIFIED Qualifiers : COPD type: unspecified COPD Qualified Code(s): J44.9 - Chronic obstructive pulmonary disease, unspecified (5) HTN (hypertension) Code(s): I10 - ESSENTIAL (PRIMARY) HYPERTENSION Qualifiers: Hypertension type: essential hypertension Qualified Code(s): I10 - Essential (primary) hypertension (6) Obesity Code(s): E66.9 - OBESITY, UNSPECIFIED Qualifiers: Obesity type: due to excess calories Obesity severity: morbid Qualified Code(s): E66.01 - Morbid (severe) obesity due to excess calories (7) Diabetes mellitus Code(s): E11.9 - TYPE 2 DIABETES MELLITUS WITHOUT COMPLICATIONS Qualifiers: Diabetes mellitus type: type 2 Diabetes mellitus complication status: with unspecified complications Diabetes mellitus termite control service representative insulin use: with fdc use Qualified Code(s): E11.8 - Type 2 diabetes mellitus with unspecified complications; Z79.4 - termite control service representative (current) use of insulin (8) CHF (congestive heart failure) Code(s): I50.9 - HEART FAILURE, UNSPECIFIED Qualifiers: Congestive heart failure type: unspecified congestive heart failure type Congestive heart failure chronicity: chronic Qualified Code(s): I50.9 - Heart failure, unspecified
[2017-01-17] MEDS: POLYETHYLENE GLYCOL 3350 119 GM BTL PO SCH (09:11)
[2017-01-17] MEDS: BUDESONIDE/FORMETEROL FUMARATE 160/4.5 mcg INHALER IH SCH ×2 (09:13→21:02)
--- NOTE | 2017-01-17 13:49 | PN ---
Progress Note, Physician Chief Complaint: ID ON consideration of the nephrostomy reports gram stain witah mixed briana gram positive it may be that the original blood cultures may in fact be true. On Zosyn - Current Medication List Current Medications: Active Medications Acetaminophen (Tylenol -) 650 mg PO Q4H PRN PRN Reason: FEVER OR PAIN Last Admin: 01/16/17 21:21 Dose: 650 mg Acetaminophen (Tylenol -) 325 mg PO Q4H PRN PRN Reason: PAIN Stop: 01/17/17 19:00 Last Admin: 01/15/17 03:32 Dose: 325 mg Acetaminophen (Tylenol -) 650 mg PO Q4H PRN PRN Reason: PAIN Stop: 01/17/17 19:01 Albuterol Sulfate (Ventolin 0.083% Nebulizer Soln -) 1 amp NEB Q4H PRN PRN Reason: SHORT OF BREATH/WHEEZING Last Admin: 01/16/17 07:05 Dose: 1 amp Albuterol Sulfate (Ventolin 0.083% Nebulizer Soln -) 1 amp NEB QIDR JAVY Last Admin: 01/17/17 11:10 Dose: 1 amp Atorvastatin Calcium (Lipitor -) 20 mg PO HS [facility] Last Admin: 01/16/17 21:20 Dose: 20 mg Budesonide/Formoterol Fumarate (Symbicort 160/4.5mcg -) 2 puff IH BID JAVY Last Admin: 01/17/17 09:13 Dose: 2 puff Piperacillin Sod/Tazobactam Sod (Zosyn 2.25gm Ivpb (Pre-Docked)) 50 mls @ 100 mls/hr IVPB Q6H-IV JAVY PRN Reason: Protocol Last Admin: 01/17/17 09:13 Dose: 100 mls/hr Insulin Aspart (Novolog Vial Sliding Scale -) 1 vial SQ ACHS JAVY PRN Reason: Protocol Last Admin: 01/17/17 11:55 Dose: Not Given Insulin Detemir (Levemir Vial) 10 units SQ HS [facility] Last Admin: 01/16/17 21:20 Dose: 10 units Oxycodone HCl (Roxicodone -) 5 mg PO Q4H PRN PRN Reason: PAIN SCALE 1-5 Last Admin: 01/15/17 03:31 Dose: 5 mg Polyethylene Glycol (Miralax (For Daily Use) -) 17 gm PO Q2D [facility] Last Admin: 01/17/17 09:11 Dose: Not Given - Objective Vital Signs: Vital Signs Temperature 98.1 F 01/17/17 10:00 Pulse Rate 72 01/17/17 11:29 Respiratory Rate 20 01/17/17 10:00 Blood Pressure 135/61 01/17/17 10:00 O2 Sat by Pulse Oximetry (%) 98 01/17/17 11:29 Constitutional: Yes: Obese HENT: Yes: WNL, Atraumatic Neck: Yes: WNL, Supple Cardiovascular: Yes: Regular Rate and Rhythm, S1, S2. No: Murmur Respiratory: Yes: WNL, Regular, CTA Bilaterally Gastrointestinal: Yes: WNL, Normal Bowel Sounds, Soft, Other Genitourinary: Yes: Other (Nephrostomy) Edema: No Labs: CBC, BMP 01/17/17 05:35 01/17/17 05:35 INR, PTT INR 1.46 (0.82-1.09) H 01/15/17 06:10 Problem List - Problems (1) Hydronephrosis of left kidney Code(s): N13.30 - UNSPECIFIED HYDRONEPHROSIS (2) UTI (urinary tract infection) Code(s): N39.0 - URINARY TRACT INFECTION, SITE NOT SPECIFIED (3) Gram-positive bacteremia Code(s): A49.9 - BACTERIAL INFECTION, UNSPECIFIED Assessment/Plan Microbiology 01/15/17 16:15 Nephrostomy Tube Drainage Gram Stain - Final 01/14/17 13:40 Urine - Urine - Catheterized Urine Culture - Final NO GROWTH OBTAINED 01/15/17 16:15 Nephrostomy Tube Drainage Body Fluid Culture - Preliminary 01/14/17 13:40 Blood - Peripheral Venous Blood Culture - Preliminary Staphylococcus Species Pending Organism 01/14/17 13:40 Blood - Peripheral Venous Blood Culture - Preliminary Staphylococcus Coagulase Neg Staphylococcus Species Staphylococcus Epidermidis Gram Positive Cocci#2 Laboratory Tests 01/17/17 01/17/17 05:35 05:35 WBC 5.8 D Hgb 13.2 Hct 39.7 Plt Count 154 D BUN 41 H Creatinine 1.7 H D Creat Clearance w eGFR 38.97 Assessment Urinary obstruction with infection and probable bacteremia Plan As it is all gram positive will stop zosyn Start Vancomycin Blood culture ESR CRP Doubt will be able to be discharged ALEK Garcia MD
[2017-01-17] MEDS: VANCOMYCIN 1,250 MG in DEXTROSE 5%-WATER - 250 ML IVPB SCH (16:04)
[2017-01-17] MEDS ORDERED: INSULIN (NOVOLOG) ASPART 100 UNITS/ML 10ML VIAL ONE (20:56)
[2017-01-17] MEDS ORDERED: PT OWN MED DRAWER 7, Y5N ONE (20:56)
[2017-01-17] MEDS: ATORVASTATIN CA 20 MG TABLET (FP) PO SCH (21:01)
[2017-01-17] MEDS: INSULIN DETEMIR 100 UNITS/ML MDV SQ SCH (21:02)
[2017-01-17] MEDS ORDERED: INSULIN DETEMIR 100 UNITS/ML MDV SQ ONE (21:08)
[2017-01-18] MEDS: INSULIN SLIDING SCALE (NOVOLOG) 1 VIAL SQ SCH ×2 (06:03→17:14)
[2017-01-18] MEDS: ALBUTEROL SO4 0.083% IH SOL 2.5 MG/3 ML VIAL.NEB. NEB SCH ×4 (06:30→23:57)
--- NOTE | 2017-01-18 07:53 | PN ---
Progress Note (short form) - Note Progress Note: Vital Signs Period Temp Pulse Resp BP Sys/Enamorado Pulse Ox Last 24 Hr 98 F-98.6 F 69-76 18-20 112-140/60-78 98-98 S1S2 RRR lungs clear Abd soft +BS Non tender no edema aaox3 nephrostomy drainage little clearer Imp Obstructive uropathy Ureteral stone M Obesity h/o CHF chronic diastolic COPD Constipation IDDM Plan iv vanco for now, depending on culture results echo was done yesterday internalize nephrostomy with stent placement in 7-10 days physical therapy DVT prophylaxis Problem List - Problems (1) Sepsis Code(s): A41.9 - SEPSIS, UNSPECIFIED ORGANISM Qualifiers: Sepsis type: sepsis due to unspecified organism Qualified Code(s): A41.9 - Sepsis, unspecified organism (2) Renal stones Code(s): N20.0 - CALCULUS OF KIDNEY (3) Hydronephrosis of left kidney Code(s): N13.30 - UNSPECIFIED HYDRONEPHROSIS (4) COPD (chronic obstructive pulmonary disease) Code(s): J44.9 - CHRONIC OBSTRUCTIVE PULMONARY DISEASE, UNSPECIFIED Qualifiers : COPD type: unspecified COPD Qualified Code(s): J44.9 - Chronic obstructive pulmonary disease, unspecified (5) HTN (hypertension) Code(s): I10 - ESSENTIAL (PRIMARY) HYPERTENSION Qualifiers: Hypertension type: essential hypertension Qualified Code(s): I10 - Essential (primary) hypertension (6) Obesity Code(s): E66.9 - OBESITY, UNSPECIFIED Qualifiers: Obesity type: due to excess calories Obesity severity: morbid Qualified Code(s): E66.01 - Morbid (severe) obesity due to excess calories (7) Diabetes mellitus Code(s): E11.9 - TYPE 2 DIABETES MELLITUS WITHOUT COMPLICATIONS Qualifiers: Diabetes mellitus type: type 2 Diabetes mellitus complication status: with unspecified complications Diabetes mellitus terminal gauger insulin use: with residential use Qualified Code(s): E11.8 - Type 2 diabetes mellitus with unspecified complications; Z79.4 - alf (current) use of insulin (8) CHF (congestive heart failure) Code(s): I50.9 - HEART FAILURE, UNSPECIFIED Qualifiers: Congestive heart failure type: unspecified congestive heart failure type Congestive heart failure chronicity: chronic Qualified Code(s): I50.9 - Heart failure, unspecified
[2017-01-18] MEDS ORDERED: PT OWN MED DRAWER 7, Y5N ONE ×2 (10:00→22:15)
[2017-01-18] MEDS: BUDESONIDE/FORMETEROL FUMARATE 160/4.5 mcg INHALER IH SCH ×2 (10:09→22:25)
--- NOTE | 2017-01-18 10:51 | PN ---
Progress Note (short form) - Note Progress Note: notes reviewed he is OOB in chair no complaints Vital Signs Period Temp Pulse Resp BP Sys/Enamorado Pulse Ox Last 24 Hr 98 F-98.6 F 69-76 18-20 112-140/60-78 98-98 cor-rrr lungs clear abd firm, obese, NT +Right PCN ext +edema CBC, BMP 01/17/17 05:35 01/17/17 05:35 Microbiology 01/14/17 13:40 Blood - Peripheral Venous Blood Culture - Preliminary Staphylococcus Epidermidis Gram Positive Cocci Gram Positive Cocci#2 Gram Positive Cocci#3 Gram Positive Cocci#4 01/14/17 13:40 Blood - Peripheral Venous Blood Culture - Final Staphylococcus Epidermidis#2 Staphylococcus Epidermidis#3 Staphylococcus Epidermidis Gram Positive Cocci#2 01/15/17 09:20 Blood - Peripheral Venous Blood Culture - Preliminary NO GROWTH OBTAINED AFTER 72 HOURS, INCUBATION TO CONTINUE FOR 2 DAYS. 01/15/17 16:15 Nephrostomy Tube Drainage Gram Stain - Final 01/15/17 16:15 Nephrostomy Tube Drainage Body Fluid Culture - Preliminary 01/14/17 13:40 Urine - Urine - Catheterized Urine Culture - Final NO GROWTH OBTAINED a/p obstructive uropathy- s/p PCN gram positive bacteremia- on vancomycin, repeat cultures pending continue vancomycin f/u echo
--- NOTE | 2017-01-18 12:23 | PN ---
Progress Note (short form) - Note Progress Note: afebrile urine from Left NT pink will have IR internalize NT next week will plan for ureteroscopy/laser litho when medically stable and infection cleared
[2017-01-18] MEDS: ENOXAPARIN NA (PORCINE) 30 MG/0.3 ML DISP.SYRIN SQ SCH (13:17)
[2017-01-18] MEDS ORDERED: INSULIN (NOVOLOG) ASPART 100 UNITS/ML 10ML VIAL ONE (17:07)
[2017-01-18] MEDS: VANCOMYCIN 1,250 MG in DEXTROSE 5%-WATER - 250 ML IVPB SCH (17:20)
[2017-01-18] MEDS: INSULIN DETEMIR 100 UNITS/ML MDV SQ SCH (22:24)
[2017-01-18] MEDS: ATORVASTATIN CA 20 MG TABLET (FP) PO SCH (22:25)
[2017-01-19] MEDS ORDERED: INSULIN (NOVOLOG) ASPART 100 UNITS/ML 10ML VIAL ONE (06:26)
[2017-01-19] MEDS: ALBUTEROL SO4 0.083% IH SOL 2.5 MG/3 ML VIAL.NEB. NEB SCH ×3 (06:27→23:26)
[2017-01-19] MEDS: INSULIN SLIDING SCALE (NOVOLOG) 1 VIAL SQ SCH ×2 (06:35→16:52)
--- NOTE | 2017-01-19 07:34 | PN ---
Progress Note (short form) - Note Progress Note: overall no complaints Vital Signs Period Temp Pulse Resp BP Sys/Enamorado Pulse Ox Last 24 Hr 98 F-98.3 F 66-77 18-20 114-154/62-71 96-96 S1S2 RRR lungs clear Abd soft +BS Non tender + edema aaox3 nephrostomy drainage little clearer Imp nephrostomy cx staph coag neg. Obstructive uropathy Ureteral stone M Obesity h/o CHF chronic diastolic COPD Constipation IDDM Plan iv vanco for now, depending on culture results echo reviewed, no overall evidence of vegetation internalize nephrostomy with stent placement in 7-10 days lithotripsy afterwards check labs in am physical therapy DVT prophylaxis Problem List - Problems (1) Sepsis Code(s): A41.9 - SEPSIS, UNSPECIFIED ORGANISM Qualifiers: Sepsis type: sepsis due to unspecified organism Qualified Code(s): A41.9 - Sepsis, unspecified organism (2) Renal stones Code(s): N20.0 - CALCULUS OF KIDNEY (3) Hydronephrosis of left kidney Code(s): N13.30 - UNSPECIFIED HYDRONEPHROSIS (4) COPD (chronic obstructive pulmonary disease) Code(s): J44.9 - CHRONIC OBSTRUCTIVE PULMONARY DISEASE, UNSPECIFIED Qualifiers : COPD type: unspecified COPD Qualified Code(s): J44.9 - Chronic obstructive pulmonary disease, unspecified (5) HTN (hypertension) Code(s): I10 - ESSENTIAL (PRIMARY) HYPERTENSION Qualifiers: Hypertension type: essential hypertension Qualified Code(s): I10 - Essential (primary) hypertension (6) Obesity Code(s): E66.9 - OBESITY, UNSPECIFIED Qualifiers: Obesity type: due to excess calories Obesity severity: morbid Qualified Code(s): E66.01 - Morbid (severe) obesity due to excess calories (7) Diabetes mellitus Code(s): E11.9 - TYPE 2 DIABETES MELLITUS WITHOUT COMPLICATIONS Qualifiers: Diabetes mellitus type: type 2 Diabetes mellitus complication status: with unspecified complications Diabetes mellitus rat exterminator insulin use: with custodial use Qualified Code(s): E11.8 - Type 2 diabetes mellitus with unspecified complications; Z79.4 - group home (current) use of insulin (8) CHF (congestive heart failure) Code(s): I50.9 - HEART FAILURE, UNSPECIFIED Qualifiers: Congestive heart failure type: unspecified congestive heart failure type Congestive heart failure chronicity: chronic Qualified Code(s): I50.9 - Heart failure, unspecified
[2017-01-19] MEDS: ENOXAPARIN NA (PORCINE) 30 MG/0.3 ML DISP.SYRIN SQ SCH (11:01)
[2017-01-19] MEDS: POLYETHYLENE GLYCOL 3350 119 GM BTL PO SCH (11:01)
[2017-01-19] MEDS: BUDESONIDE/FORMETEROL FUMARATE 160/4.5 mcg INHALER IH SCH ×2 (11:02→21:26)
[2017-01-19] MEDS: VANCOMYCIN 1,250 MG in DEXTROSE 5%-WATER - 250 ML IVPB SCH (16:49)
[2017-01-19] MEDS: ATORVASTATIN CA 20 MG TABLET (FP) PO SCH (21:25)
[2017-01-19] MEDS: INSULIN DETEMIR 100 UNITS/ML MDV SQ SCH (21:26)
[2017-01-20] MEDS: INSULIN SLIDING SCALE (NOVOLOG) 1 VIAL SQ SCH ×2 (06:03→18:07)
[2017-01-20] MEDS: ALBUTEROL SO4 0.083% IH SOL 2.5 MG/3 ML VIAL.NEB. NEB SCH ×4 (06:55→23:03)
--- NOTE | 2017-01-20 07:39 | PN ---
Progress Note (short form) - Note Progress Note: overall no complaints Vital Signs Period Temp Pulse Resp BP Sys/Enamorado Pulse Ox Last 24 Hr 97.9 F-98.3 F 66-76 18-20 115-139/61-85 labs ordered for am S1S2 RRR lungs clear Abd soft +BS Non tender + edema aaox3 nephrostomy drainage little clearer Imp nephrostomy cx staph coag neg. Obstructive uropathy Ureteral stone M Obesity h/o CHF chronic diastolic COPD Constipation IDDM Plan iv vanco for now, depending on culture results-hopefully today echo reviewed, no overall evidence of vegetation internalize nephrostomy with stent placement end of this week lithotripsy afterwards physical therapy DVT prophylaxis resume low dose lasix Problem List - Problems (1) Sepsis Code(s): A41.9 - SEPSIS, UNSPECIFIED ORGANISM Qualifiers: Sepsis type: sepsis due to unspecified organism Qualified Code(s): A41.9 - Sepsis, unspecified organism (2) Renal stones Code(s): N20.0 - CALCULUS OF KIDNEY (3) Hydronephrosis of left kidney Code(s): N13.30 - UNSPECIFIED HYDRONEPHROSIS (4) COPD (chronic obstructive pulmonary disease) Code(s): J44.9 - CHRONIC OBSTRUCTIVE PULMONARY DISEASE, UNSPECIFIED Qualifiers : COPD type: unspecified COPD Qualified Code(s): J44.9 - Chronic obstructive pulmonary disease, unspecified (5) HTN (hypertension) Code(s): I10 - ESSENTIAL (PRIMARY) HYPERTENSION Qualifiers: Hypertension type: essential hypertension Qualified Code(s): I10 - Essential (primary) hypertension (6) Obesity Code(s): E66.9 - OBESITY, UNSPECIFIED Qualifiers: Obesity type: due to excess calories Obesity severity: morbid Qualified Code(s): E66.01 - Morbid (severe) obesity due to excess calories (7) Diabetes mellitus Code(s): E11.9 - TYPE 2 DIABETES MELLITUS WITHOUT COMPLICATIONS Qualifiers: Diabetes mellitus type: type 2 Diabetes mellitus complication status: with unspecified complications 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
[2017-01-20 08:42] LABS: BASOPHIL 0.4 % (0-2.0); EOSINOPHIL 5.3 % (0-4.5); MCH 29.2 pg (25.7-33.7); MCHC 32.6 g/dl (32.0-35.9); MEAN CELL VOLUME 89.5 fl (80-96); NEUTROPHILS 64.4 % (42.8-82.8); PLATELET COUNT 185 K/MM3 (134-434); RDW 16.9 % (11.9-15.9); WHITE BLOOD COUNT 8.3 K/mm3 (4.0-10.0)
[2017-01-20 08:53] LABS: ALBUMIN 2.7 g/dl (3.4-5.0); ALK PHOS 59 U/L (45-117); ANION GAP 8 (8-16); BILIRUBIN,TOTAL 0.6 mg/dL (0.2-1.0); CALCIUM 8.3 mg/dL (8.5-10.1); CO2 27 mmol/L (21-32); CREATININE 1.1 mg/dL (0.7-1.3); GLUCOSE,RANDOM 130 mg/dL (74-106); SGOT/AST 26 U/L (15-37); SGPT/ALT 56 U/L (12-78); TOT PROT 5.9 g/dl (6.4-8.2)
[2017-01-20] MEDS: BUDESONIDE/FORMETEROL FUMARATE 160/4.5 mcg INHALER IH SCH ×2 (10:20→21:10)
[2017-01-20] MEDS: FUROSEMIDE 20 MG TABLET (FP) PO SCH (10:20)
[2017-01-20] MEDS: ENOXAPARIN NA (PORCINE) 30 MG/0.3 ML DISP.SYRIN SQ SCH (10:20)
--- NOTE | 2017-01-20 15:25 | PN ---
Progress Note (short form) - Note Progress Note: notes reviewed he is OOB in chair no complaints Vital Signs Period Temp Pulse Resp BP Sys/Enamorado Pulse Ox Last 24 Hr 97.9 F-98.1 F 66-78 18-20 115-129/61-85 96-96 cor-rrr llungs clear abd soft,nt ext no edema +PCN CBC, BMP 01/20/17 06:05 01/20/17 06:05 Microbiology 01/17/17 14:50 Blood - Peripheral Venous Blood Culture - Preliminary NO GROWTH OBTAINED AFTER 72 HOURS, INCUBATION TO CONTINUE FOR 2 DAYS. 01/17/17 14:45 Blood - Peripheral Venous Blood Culture - Preliminary NO GROWTH OBTAINED AFTER 72 HOURS, INCUBATION TO CONTINUE FOR 2 DAYS. 01/15/17 16:15 Nephrostomy Tube Drainage Gram Stain - Final 01/15/17 16:15 Nephrostomy Tube Drainage Body Fluid Culture - Preliminary Staphylococcus Coagulase Neg Staphylococcus Species 01/15/17 16:15 Nephrostomy Tube Drainage Anaerobic Culture - Final 01/15/17 09:20 Blood - Peripheral Venous Blood Culture - Final NO GROWTH AFTER 5 DAYS INCUBATION 01/14/17 13:40 Blood - Peripheral Venous Blood Culture - Final Staphylococcus Epidermidis Staphylococcus Epidermidis#2 Staphylococcus Epidermidis#3 Staphylococcus Epidermidis#4 Staph Capitis Subsp Ureolyticu 01/14/17 13:40 Blood - Peripheral Venous Blood Culture - Final Staphylococcus Epidermidis#2 Staphylococcus Epidermidis#3 Staphylococcus Epidermidis Gram Positive Cocci#2 01/14/17 13:40 Urine - Urine - Catheterized Urine Culture - Final NO GROWTH OBTAINED Laboratory Tests 01/20/17 06:05 Random Vancomycin 10.114 echo- no veg a/p obstructive uropathy- s/p PCN gram positive bacteremia- on vancomycin, repeat cultures negative continue vancomycin, increase dose to bid -plan on treating total 14 days vancomycin-d/w Dr Garcia renal function has improved no objection to inernalizing stent from I standpoint
[2017-01-20] MEDS ORDERED: PICC LINE 8 ML FLUSH PROTOCOL IVPUSH PRN (16:07)
[2017-01-20] MEDS: VANCOMYCIN 1 GRAM (PRE-DOCKED) 1,000 MG/250 ML BAG IVPB SCH (16:25)
[2017-01-20] MEDS: INSULIN DETEMIR 100 UNITS/ML MDV SQ SCH (21:10)
[2017-01-20] MEDS: ATORVASTATIN CA 20 MG TABLET (FP) PO SCH (21:10)
[2017-01-20 23:24] VITALS: TEMP 97.9
[2017-01-21] MEDS: VANCOMYCIN 1 GRAM (PRE-DOCKED) 1,000 MG/250 ML BAG IVPB SCH ×2 (03:21→17:14)
[2017-01-21] MEDS: ALBUTEROL SO4 0.083% IH SOL 2.5 MG/3 ML VIAL.NEB. NEB SCH ×2 (05:38→10:35)
[2017-01-21] MEDS: INSULIN SLIDING SCALE (NOVOLOG) 1 VIAL SQ SCH (06:18)
[2017-01-21 07:46] LABS: INR 1.13 (0.82-1.09); PROTHROMBIN TIME (PATIENT) 12.5 SEC (9.98-11.88)
--- NOTE | 2017-01-21 08:26 | PN ---
Progress Note (short form) - Note Progress Note: overall no complaints CBC, BMP 01/20/17 06:05 01/20/17 06:05 INR 1.1 Vital Signs Period Temp Pulse Resp BP Sys/Enamorado Pulse Ox Last 24 Hr 97.8 F-97.9 F 69-79 18-20 108-136/61-70 96-96 S1S2 RRR lungs clear Abd soft +BS Non tender + edema aaox3 nephrostomy drainage little clearer Imp nephrostomy cx staph coag neg. Obstructive uropathy Ureteral stone M Obesity h/o CHF chronic diastolic COPD Constipation IDDM Plan iv vanco until 01.31.17 PICC line today dc home with VNS for home iv abx use will d/w possibly internalize nephrostomy today? d/w pt and daughters Problem List - Problems (1) Sepsis Code(s): A41.9 - SEPSIS, UNSPECIFIED ORGANISM Qualifiers: Sepsis type: sepsis due to unspecified organism Qualified Code(s): A41.9 - Sepsis, unspecified organism (2) Renal stones Code(s): N20.0 - CALCULUS OF KIDNEY (3) Hydronephrosis of left kidney Code(s): N13.30 - UNSPECIFIED HYDRONEPHROSIS (4) COPD (chronic obstructive pulmonary disease) Code(s): J44.9 - CHRONIC OBSTRUCTIVE PULMONARY DISEASE, UNSPECIFIED Qualifiers : COPD type: unspecified COPD Qualified Code(s): J44.9 - Chronic obstructive pulmonary disease, unspecified (5) HTN (hypertension) Code(s): I10 - ESSENTIAL (PRIMARY) HYPERTENSION Qualifiers: Hypertension type: essential hypertension Qualified Code(s): I10 - Essential (primary) hypertension (6) Obesity Code(s): E66.9 - OBESITY, UNSPECIFIED Qualifiers: Obesity type: due to excess calories Obesity severity: morbid Qualified Code(s): E66.01 - Morbid (severe) obesity due to excess calories (7) Diabetes mellitus Code(s): E11.9 - TYPE 2 DIABETES MELLITUS WITHOUT COMPLICATIONS Qualifiers: Diabetes mellitus type: type 2 Diabetes mellitus complication status: with unspecified complications Diabetes mellitus meterman insulin use: with meterman use Qualified Code(s): E11.8 - Type 2 diabetes mellitus with unspecified complications; Z79.4 - meterman (current) use of insulin (8) CHF (congestive heart failure) Code(s): I50.9 - HEART FAILURE, UNSPECIFIED Qualifiers: Congestive heart failure type: unspecified congestive heart failure type Congestive heart failure chronicity: chronic Qualified Code(s): I50.9 - Heart failure, unspecified
--- NOTE | 2017-01-21 08:36 | DS ---
Physical Examination Vital Signs: Vital Signs Temperature 97.9 F 01/21/17 06:00 Pulse Rate 69 01/21/17 06:00 Respiratory Rate 20 01/21/17 06:00 Blood Pressure 136/70 01/21/17 06:00 O2 Sat by Pulse Oximetry (%) 96 01/20/17 21:00 Constitutional: Yes: No Distress, Calm Eyes: Yes: EOM Intact HENT: Yes: Normocephalic Neck: Yes: Trachea Midline Cardiovascular: Yes: Regular Rate and Rhythm Respiratory: Yes: CTA Bilaterally Gastrointestinal: Yes: Normal Bowel Sounds, Soft, Abdomen, Obese Extremities: Yes: WNL Edema: LLE: Trace, RLE: Trace Peripheral Pulses WNL: Yes Labs: CBC, BMP 01/20/17 06:05 01/20/17 06:05 Discharge Summary Reason For Visit: fever/chills Current Active Problems COPD (chronic obstructive pulmonary disease) Calculus of distal left ureter (Acute) Calculus of left ureter (Acute) Diabetes mellitus (Acute) Gram-positive bacteremia (Acute) HTN (hypertension) (Acute) Hydronephrosis of left kidney (Acute) Obesity (Acute) Renal stones (Acute) Sepsis (Acute) UTI (urinary tract infection) (Acute) Gram positive bacteremia Hospital Course: admitted for sepsis, chills, partially obstructing left distal ureteral stone. obstructive uropathy with acute renal insufficiency was started on iv abx underwent left nephrostomy tube placement in IR renal function, clinical status much improved several admission blood cultures and nephrostomy drainage grew stapaudra was seen by ID recommended to complete iv vanco total of 2 weeks going for PICC and possibly nephrostomy internalization today, afterwards he is medically stble to dc home with VNS for home iv abx Condition: Stable - Instructions Diet, Activity, Other Instructions: PICC to discontinue on 01.31.17-can come to 's office urology f/up for cysto, lithotripsy nephrostomy internalization as per dr.Gebrael tony peck until next visit Referrals: Mohamud Cadena MD [Primary Care Provider] - - Home Medications Comprehensive Discharge Medication List: Ambulatory Orders Furosemide [Lasix -] 40 mg PO DAILY 08/05/13 Simvastatin [Zocor -] 40 mg PO HS 08/05/13 Triamcinolone 0.1% Cream [Aristocort 0.1% Cream -] 1 applic TP DAILY #30 gm Fenofibrate Nanocrystallized [Fenofibrate] 145 mg PO DAILY 01/14/17 Insulin (Levemir) [Levemir Flexpen -] 10 units SQ DAILY 01/14/17 Mirabegron [Myrbetriq] 25 mg PO DAILY 01/14/17 Oxybutynin Chloride [Ditropan Xl] 10 mg PO DAILY 01/14/17 Acetaminophen [Tylenol .Regular Strength -] 650 mg PO Q4H PRN #0 tablet Budesonide/Formeterol Fumarate [SYMBICORT 160/4.5mcg -] 2 puff IH BID #1 inhaler 01/21/17 Picc Line Flush [Picc Line Flush -] 8 ml IVPUSH PRN PRN #0 ml 01/21/17 Polyethylene Glycol 3350 [Miralax 119 gm Btl -] 17 gm PO Q2D 30 Days 01/21/17 Potassium Chloride [Klor-Con M10] 10 meq PO DAILY #0 01/21/17 Vancomycin 1 Gram (Pre-Docked) [Vancomycin (Pre-Docked)] 1,000 mg IVPB BID@0400, 1600 10 Days 01/21/17
[2017-01-21] MEDS: POLYETHYLENE GLYCOL 3350 119 GM BTL PO SCH (10:00)
[2017-01-21] MEDS: BUDESONIDE/FORMETEROL FUMARATE 160/4.5 mcg INHALER IH SCH (10:00)
[2017-01-21] MEDS: FUROSEMIDE 20 MG TABLET (FP) PO SCH (10:00)
[2017-01-21 11:10] VITALS: PULSE 72
[2017-01-21 18:21] VITALS: BP 128/48
== END 2017-01-21 19:25 | disposition home or self-care (01) | DRG 872 ==
LOC: JER 12:52 → JERBED 17:57 → J4S 18:35
PROVIDERS: ADMIT Internal Medicine; ATTEND Internal Medicine
PROC: 0T9430Z Drainage of Left Kidney Pelvis with Drainage Device, Percutaneous Approach (ICD-10-PCS; principal; 2017-01-15)
PROC: 0TJB8ZZ Inspection of Bladder, Via Natural or Artificial Opening Endoscopic (ICD-10-PCS; 2017-01-15)
PROC: 02HV33Z Insertion of Infusion Device into Superior Vena Cava, Percutaneous Approach (ICD-10-PCS; 2017-01-21)
DX: A41.9 Sepsis, unspecified organism (principal); Z68.41 Body mass index [BMI] 40.0-44.9, adult; N13.30 Unspecified hydronephrosis; N39.0 Urinary tract infection, site not specified; N13.2 Hydronephrosis with renal and ureteral calculous obstruction; I50.32 Chronic diastolic (congestive) heart failure; J45.909 Unspecified asthma, uncomplicated; E78.00 Pure hypercholesterolemia, unspecified; J44.9 Chronic obstructive pulmonary disease, unspecified; M48.00 Spinal stenosis, site unspecified; E66.01 Morbid (severe) obesity due to excess calories; Z71.3 Dietary counseling and surveillance; E11.9 Type 2 diabetes mellitus without complications; M19.90 Unspecified osteoarthritis, unspecified site; K59.09 Other constipation; N40.0 Benign prostatic hyperplasia without lower urinary tract symptoms; I11.0 Hypertensive heart disease with heart failure; Z87.442 Personal history of urinary calculi; Z87.891 Personal history of nicotine dependence
CPT/HCPCS: 36415; 36430; 36569; 50432; 71010-TC; 74176-TC; 77001-TC; 80053; 81003; 81015; 82550; 82803; 83605; 83880; 84484; 85025; 85610; 85651; 85730; 86140; 86850; 86900; 86901; 87040; 87070; 87075; 87086; 87186; 87205; 93005; 93010; 93306-TC; 94640; 97116-GP; 97161-GP; 99285-25; C1729; C1751; C1769; G0480; P9017; Q9967

== ENCOUNTER 2017-02-03 08:24 | Day surgery (SDC) | payer OTHER ==
[2017-01-31 11:10] VITALS: BMI 40.7
[2017-02-03 08:54] VITALS: TEMP 97.8
[2017-02-03 12:54] VITALS: PULSE 78
[2017-02-03 12:59] VITALS: BP 114/59
== END 2017-02-03 13:01 | disposition home or self-care (01) ==
LOC: JRADIR 08:24
PROVIDERS: ATTEND Radiology Diagnostic Radiology
PROC: 0TP97DZ Removal of Intraluminal Device from Ureter, Via Natural or Artificial Opening (ICD-10-PCS; principal; 2017-02-03)
PROC: BT17YZZ Fluoroscopy of Left Ureter using Other Contrast (ICD-10-PCS; 2017-02-03)
PROC: 0T25X0Z Change Drainage Device in Kidney, External Approach (ICD-10-PCS; 2017-02-03)
DX: N13.5 Crossing vessel and stricture of ureter without hydronephrosis (principal); T83.018A Breakdown (mechanical) of other urinary catheter, initial encounter; N99.522 Malfunction of incontinent external stoma of urinary tract
CPT/HCPCS: 50693; C1769; C1887

== ENCOUNTER 2017-03-24 07:44 | Day surgery (SDC) | payer OTHER ==
[2017-03-21 16:32] VITALS: BMI 53.0
[2017-03-24] MEDS ORDERED: MIDAZOLAM HCL 2 MG/2 ML SINGLE DOSE VIAL ONE (09:47)
[2017-03-24] MEDS ORDERED: LEVOFLOXACIN 500 MG PREMIX BAG IVPB ONE (09:56)
[2017-03-24] MEDS ORDERED: LEVOFLOXACIN 500 MG IVPB 100 ML IVPB ONE (10:02)
--- NOTE | 2017-03-24 10:39 | OP ---
Operative Note - Note: Operative Date: 03/24/17 Pre-Operative Diagnosis: left ureteral stone s/p hydroureteronephrosis with urosepsis Operation: urethral dilation with sounds/cystoscopy/left retrograde pyelogram/ left ureteroscopy/left ureteral stent removal Findings: 02/02 left hydroureteronephrosis; no evidence of stone Post-Operative Diagnosis: Other (urthethral stricture and hydroureteronephrosis 02/02) Surgeon: Dinesh Serrano Anesthesia: General Specimens Removed: left ureteral stent Operative Report Dictated: Yes
[2017-03-24] MEDS ORDERED: ONDANSETRON 4 MG/2 ML VIAL IVPUSH PRN (10:48)
[2017-03-24 11:59] VITALS: TEMP 98
--- NOTE | 2017-03-24 11:59 | OP ---
DATE OF OPERATION: 03/24/2017 PREOPERATIVE DIAGNOSIS: Left ureteral stone status post left ureteral stent. POSTOPERATIVE DIAGNOSIS: Urethral stricture, benign prostatic hypertrophy, and left hydroureteronephrosis. PROCEDURE: Urethral dilation, cystoscopy, left ureteroscopy, left retrograde pyelogram, left ureteral stent removal. SURGEON: Rama Lund MD ANESTHESIA: General. DESCRIPTION OF PROCEDURE: The patient was brought in the operating room and placed in the supine position on the operating room table. General anesthesia and IV antibiotics consisting of Levaquin was administered without complications. The patient was then placed in the dorsal lithotomy position and prepped and draped in the usual sterile manner. The patient has a past medical history remarkable for urosepsis secondary to an obstructing left ureteral stone. The patient was managed with a left percutaneous nephrostomy tube. The radiology department then internalized this stent and removed the nephrostomy tube. The patient comes in for evaluation for ureteral stent removal. The patient denies any passage of stone. The patient at this time is scheduled for cystoscopy and retrograde pyelogram with stent removal. The patient undergoes cystoscopy. Urethral dilation is necessary due to distal urethral stricture. The urethra is dilated to 28-Bangl[place]hi. A rigid cystoscope was then placed in the penis and then into the bladder. A 3+ obstructive prostate with the median lobe and 2+ bladder trabeculation with cellules are noted. No evidence of stone is seen. Left ureteral stent is seen. A wire was passed proximally under fluoroscopic guidance. At this point, a wire was passed under fluoroscopic guidance into the left renal pelvis. At this point, the stent was removed. Unfortunately, the wire came out with the stent. At this point, attempts at passing the wire proximally was unsuccessful due to J hooking of the ureter. A rigid ureteroscope was utilized, and the left ureter was entered, and it was noted to have significant angulation. The radiologist had mentioned a ureteral stricture on the left side. This is most likely the angulation that was noted due to J hooking of the ureter when entering into a bladder with an enlarged prostate. The retrograde pyelogram showed a hydroureteronephrosis. Ureteroscopy was taken to the level of the mid ureter, and no stone was noted. The wire was passed again proximally. At this point, the ureteroscope was removed. Drainage was noted into the bladder from the left ureter. At this point, the wire was then removed and the cystoscope removed. The patient tolerated the procedure well. No complications were noted. The patient tolerated the procedure very well. RAMA LUND M.D. /[id number]
[2017-03-24] MEDS ORDERED: PHENAZOPYRIDINE HCL 100 MG TABLET (FP) ONE (13:01)
[2017-03-24 14:58] VITALS: BP 113/61; PULSE 73
--- NOTE | 2017-03-25 09:19 | PATH ---
Surgical Pathology Report Patient Name: JUAN MANUEL MONIQUE Med. Rec. #: [id number] /Age/Gender: 1935 (Age: 81) / M Account: [id number] Location: [facility] SURGICAL Taken: 03/24/2017 Received: 03/24/2017 Reported: 03/25/2017 Physicians: Dinesh Serrano Specimen(s) Received REMOVED STENT Clinical History Renal colic Final Diagnosis PRESIDENT CELEBRITY ACQUISTION, URETER, REMOVAL: URETERAL STENT (GROSS ONLY). Electronically Signed Volodymyr Dias M.D. Gross Description Received fresh labeled "removed stent," is a 36 cm in length white, coiled portion of tubing, consistent with a ureteral stent. No soft tissue is present. No sections are submitted, gross only. /03/24/201703/24/2017
== END 2017-03-24 14:15 | disposition home or self-care (01) ==
LOC: JASU-SURG 07:44
PROVIDERS: ATTEND Urology
PROC: 0TPD8DZ Removal of Intraluminal Device from Urethra, Via Natural or Artificial Opening Endoscopic (ICD-10-PCS; 2017-03-24)
PROC: BT1FZZZ Fluoroscopy of Left Kidney, Ureter and Bladder (ICD-10-PCS; 2017-03-24)
PROC: 0T7D8ZZ Dilation of Urethra, Via Natural or Artificial Opening Endoscopic (ICD-10-PCS; principal; 2017-03-24 09:00)
DX: N13.1 Hydronephrosis with ureteral stricture, not elsewhere classified (principal); N40.0 Benign prostatic hyperplasia without lower urinary tract symptoms; N35.9 Urethral stricture, unspecified
CPT/HCPCS: 76000-TC; 88300-TC; 94760

== ENCOUNTER 2017-06-30 06:44 | Day surgery (SDC) | payer OTHER ==
[2017-06-27 10:16] VITALS: BMI 42.9
[2017-06-30] MEDS ORDERED: SUCCINYLCHOLINE CHLORIDE 200 MG/10 ML VIAL ONE (08:18)
[2017-06-30] MEDS ORDERED: MIDAZOLAM HCL 2 MG/2 ML SINGLE DOSE VIAL ONE (08:18)
[2017-06-30] MEDS ORDERED: ceFAZolin SODIUM 1 GM VIAL IVPB ONE (08:20)
[2017-06-30] MEDS ORDERED: ceFAZolin SODIUM 1 GM VIAL ONE (08:32)
[2017-06-30] MEDS ORDERED: LACTATED RINGERS SOLUTION 1,000 ML IV SCH (11:00)
[2017-06-30 11:08] VITALS: TEMP 98.3
[2017-06-30 12:01] VITALS: BP 144/66; PULSE 65
--- NOTE | 2017-06-30 14:45 | OP ---
Operative Note - Note: Operative Date: 06/30/17 Pre-Operative Diagnosis: neurogenic bladder/urge incontinence Operation: Interstim II Therapy Full System Implant Implants: interstim Post-Operative Diagnosis: Same as Pre-op Surgeon: Dinesh Serrano Anesthesia: Local, Fractional
--- NOTE | 2017-07-01 08:44 | OP ---
DATE OF OPERATION: 06/30/2017 PREOPERATIVE DIAGNOSIS: Neurogenic bladder with urge incontinence. POSTOPERATIVE DIAGNOSIS: Neurogenic bladder with urge incontinence. PROCEDURE: 1. Complete InterStim II system implantation with incision and implantation of tined quadripolar lead electrodes into foramen S3. 2. Fluoroscopic guidance for needle placement. 3. Subcutaneous implantation of sacral nerve neurostimulator, electronic analysis and complex programming. ATTENDING: Rama Lund MD ANESTHESIA: Local with fractional anesthesia. INDICATIONS FOR THE PROCEDURE: Patient has severe urinary frequency and urgency with urge incontinence. The patient was informed of the risks and benefits of the procedures and agreed to undertake this procedure. DESCRIPTION OF PROCEDURE: The patient was properly identified and placed in prone position as per operating room protocol. MAC anesthesia was administered. The patient was given 1 g of Ancef. Pillows were placed under the lower abdomen to flatten the sacrum and under the shins to allow the toes to dangle freely. Tape was placed on each buttock and pulled laterally to separate cheeks adequately to visualize anal sphincter. The patient was prepped and draped in the usual sterile manner using ChloraPrep prep solution. The C-arm was moved into the PA position to provide fluoroscopy visual and the midline of the vertebrae. S1 notches and medial foraminal borders were marked. The C-arm was moved to the lateral position to image the area from sacral promontory to the coccyx. Local injection of lidocaine was administered. A 3.5-inch size needle was introduced approximately 2 cm above the SI notch and 3 cm lateral to the vertebral midline, feeling for foraminal margins until the S3 foramen was identified and penetrated. The depth of the needle was confirmed and adjusted fluoroscopically. Proper needle position was confirmed by patient identification of location of sensation, direct observation of the lifting of the perineum or bellowing, and observation of plantar flexion of the great toe utilizing the test stimulator box. The needle stylet was removed and a directional guidewire was placed and confirmed fluoroscopically. The foramen needle was removed. An incision was made peripherally to the directional guidewire through the fascial layer. The dilator and introducer sheath were placed over the directional guidewire and directed into the foramen until the opaque marker of the dilator was seen on the anterior rim of the sacrum. The dilator obturator was unlocked and removed. The lead was then placed through the introducer sheath to the first white line. Position was checked fluoroscopically. The lead was then further introduced until 3 electrodes were visible below the sacrum. Each electrode was tested for location of patient sensation, visualization of cristy and plantar flexion of the great toe. After satisfactory positioning was confirmed, under continuous fluoroscopy, the introducer sheath was retracted, deploying the lead tines into the perisacral tissue. Further incision was made into the subcutaneous tissue posterior to the iliac crest and blunt dissection was continued until the gluteal fascia was identified and hemostasis was achieved, allowing for a sufficient pocket for the neurostimulator. A tunneling tool and tube were placed from the lead subcutaneously to the incised pocket site. The tunneling tool was removed and the lead was fed through the tube and pulled out at the pocket site. The lead was cleansed of bodily fluids and a boot was placed over the lead. The lead was inserted into the InterStim II pulse generator and the metal bands were aligned with the white lead tip clearly visible in the distal portion of the pulse generator header. The single set screw was tightened with the hex wrench. The pulse generator was placed into the subcutaneous pocket with the etched identification side placed upward and the extension wrapped counterclockwise around the pulse generator. The programming head was placed over the implanted neurostimulator. The impedance was verified to ensure adequate lead placement and the parameters were within normal limits. If impedance is greater than the normal limits, a 2nd interrogation is required. If the 2nd interrogation is required, further troubleshooting may be required. Impedances were checked, confirmed to be within normal limits at greater than 50 and less than 4000. After implantation of the neurostimulator was completed, complex programming of the neurostimulator was performed based on impedance values. Final electrode sensations were set to 0+1-2-. Estimated time for analysis and complex programming was 30 minutes. The wounds were irrigated with antibiotic solution and water and closed with a subcutaneous and subcuticular stitch. Counts were correct. Steri-Strips and gauze were placed over the incision under the cable connector. The estimated blood loss was less than 3 mL. The patient was transferred to postop in satisfactory condition. Using the clinician programmer engineering and scientific, the patient was programmed to the lead of optimum sensation and given instructions on utilizing the patient programmer engineering and scientific prior to discharge. RAMA LUND M.D. /[id number]
== END 2017-06-30 11:50 | disposition home or self-care (01) ==
LOC: JASU-SURG 06:44
PROVIDERS: ATTEND Urology
PROC: 01HY0MZ Insertion of Neurostimulator Lead into Peripheral Nerve, Open Approach (ICD-10-PCS; 2017-06-30)
PROC: 0JH70BZ Insertion of Single Array Stimulator Generator into Back Subcutaneous Tissue and Fascia, Open Approach (ICD-10-PCS; principal; 2017-06-30 08:00)
DX: N39.41 Urge incontinence (principal); N31.9 Neuromuscular dysfunction of bladder, unspecified
CPT/HCPCS: 64581; 64590; C1767; C1778; 76000-TC; 94760

== ENCOUNTER 2018-02-09 15:25 | Observation (INO) | payer OTHER ==
[2018-02-09 17:16] LABS: BASO % 0.8 % (0-2.0); EOS % 4.5 % (0-4.5); HEMATOCRIT 40.6 % (35.4-49); HEMOGLOBIN 13.8 GM/dL (11.7-16.9); LYMPH % 19.9 % (8-40); MCH 32.7 pg (25.7-33.7); MCHC 33.9 g/dl (32.0-35.9); MEAN CELL VOLUME 96.3 fl (80-96); MEAN PLT VOLUME 7.8 fl (7.5-11.1); MONO % 10.2 % (3.8-10.2); NEUT % 64.6 % (42.8-82.8); PLATELET COUNT 189 K/MM3 (134-434); RBC 4.21 M/mm3 (4.00-5.60); RDW 13.9 % (11.9-15.9); WHITE BLOOD COUNT 6.9 K/mm3 (4.0-10.0)
[2018-02-09 17:30] LABS: INR 1.07 (0.82-1.09); PROTHROMBIN TIME (PATIENT) 12.1 SEC (9.98-11.88)
[2018-02-09] MEDS ORDERED: ALBUTEROL SO4 0.083% IH SOL 2.5 MG/3 ML VIAL.NEB. NEB ONE (17:30)
[2018-02-09 17:33] LABS: ACTIVATED PTT 27.9 SECONDS (26.9-34.4)
[2018-02-09 17:39] LABS: ALBUMIN 3.8 g/dl (3.4-5.0); ANION GAP 7 (8-16); BILIRUBIN,TOTAL 0.4 mg/dL (0.2-1.0); BLOOD UREA NITROGEN 34 mg/dL (7-18); CALCIUM 8.8 mg/dL (8.5-10.1); CHLORIDE 108 mmol/L (98-107); CO2 27 mmol/L (21-32); CREATININE 1.3 mg/dL (0.7-1.3); GLUCOSE,RANDOM 150 mg/dL (74-106); SGOT/AST 14 U/L (15-37); SGPT/ALT 22 U/L (12-78); SODIUM 142 mmol/L (136-145); TOT PROT 6.9 g/dl (6.4-8.2)
[2018-02-09 17:40] LABS: ALK PHOS 32 U/L (45-117)
--- NOTE | 2018-02-09 17:57 | PDOC ---
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 Pt states that he has had chronic swelling of both legs that comes and goes intermittently. Over the past month, however, he notes that his left leg has become more swollen than the right. He denies any injury. Pt has never had prior DVT/PE. He denies any chest pain but endorses chronic SOB due to his COPD. The patient denies chest pain, headache and dizziness. Denies fever, chills, nausea, vomit, diarrhea and constipation. Denies dysuria, frequency, urgency and hematuria. Allergies: Sulfonamide antibiotics. Past surgical history: None reported. Social history: Former smoker (quit 20 years ago). Social alcohol use. No reported drug use. PCP: Dr. Cadena Retail Pharmacy Merchandiser: Dr. Mcnulty " <Darryl Rosales - Last Filed: 02/10/18 13:01> - General Chief Complaint: Pain Stated Complaint: PCP SENT, BLOOD CLOT Time Seen by Provider: 02/09/18 16:45 Past History <Ruperto Doyle - Last Filed: 02/09/18 18:06> - Past Medical History Anemia: No Asthma: Yes Cancer: No Cardiac Disorders: No (MILD CHF) CVA: No COPD: No CHF: Yes Dementia: No Diabetes: Yes (SINCE 2012-STARTED MEDS) GI Disorders: No Disorders: Yes (NEPHROSTOMY TUBE (INTERNAL)) HTN: Yes Hypercholesterolemia: Yes Liver Disease: No Seizures: No Thyroid Disease: No - Surgical History Abdominal Surgery: No Appendectomy: No Cardiac Surgery: No Cholecystectomy: No Lung Surgery: No Neurologic Surgery: No Orthopedic Surgery: Yes (KNEE SX YEARS AGO) - Suicide/Smoking/Psychosocial Hx Smoking History: Former smoker Have you smoked in the past 12 months: No If you are a former smoker, when did you quit?: 20 YRS Information on smoking cessation initiated: No Hx Alcohol Use: No Drug/Substance Use Hx: No Substance Use Type: Alcohol Hx Substance Use Treatment: No <Darryl Rosales - Last Filed: 02/10/18 13:01> - Past Medical History Allergies/Adverse Reactions: Allergies Allergy/AdvReac Type Severity Reaction Status Date / Time Sulfa (Sulfonamide Allergy Mild Rash Verified 06/30/17 07:49 Antibiotics) Home Medications: Ambulatory Orders Furosemide [Lasix -] 20 mg PO TID 08/05/13 Simvastatin [Zocor -] 40 mg PO HS 08/05/13 Insulin (Levemir) [Levemir Flexpen -] 15 units SQ HS 01/14/17 Oxybutynin Chloride [Ditropan Xl] 10 mg PO TID 01/14/17 Budesonide/Formeterol Fumarate [SYMBICORT 160/4.5mcg -] 2 puff IH BID #1 inhaler 01/21/17 Aspirin [ASA -] 81 mg PO DAILY 01/31/17 Polyethylene Glycol 3350 [Miralax 119 gm Btl -] 17 gm PO Q2D PRN 01/31/17 Albuterol 2.5/Ipratropium 0.5 [Duoneb -] 1 neb IH QID 06/27/17 Atenolol [Tenormin -] 25 mg PO DAILY 06/27/17 Fenofibrate Nanocrystallized [Tricor] 145 mg PO DAILY 06/27/17 Glipizide/Metformin HCl [Glipizide-Metformin 5-500 mg] 1 each PO BID 06/27/17 Latanoprost 0.005% Eye Drops [Xalatan 0.005% Eye Drops -] 1 drop OU HS 06/27/17 Mirabegron [Myrbetriq] 50 mg PO DAILY 06/27/17 Potassium Chloride [Klor-Con M10] 30 meq PO DAILY 06/27/17 Salmeterol/Fluticasone [Advair 500Mcg/50Mcg -] 1 inh PO BID 06/27/17 Review of Systems - Review of Systems Comments:: 02/09/18 17:57 "GENERAL/CONSTITUTIONAL: No fever or chills. No weakness. HEAD, EYES, EARS, NOSE AND THROAT: No change in vision. No ear pain or discharge. No sore throat. CARDIOVASCULAR: (+) chronic shortness of breath. No chest pain. RESPIRATORY: No cough, wheezing, or hemoptysis. GASTROINTESTINAL: No nausea, vomiting, diarrhea or constipation. GENITOURINARY: No dysuria, frequency, or change in urination. MUSCULOSKELETAL: (+) Bilateral LE swelling, left worse than right. No joint or muscle pain. No neck or back pain. SKIN: No rash NEUROLOGIC: No headache, vertigo, loss of consciousness, or change in strength/ sensation. ENDOCRINE: No increased thirst. No abnormal weight change. HEMATOLOGIC/LYMPHATIC: No anemia, easy bleeding, or history of blood clots. ALLERGIC/IMMUNOLOGIC: No hives or skin allergy. " <BobbyDarryl - Last Filed: 02/10/18 13:01> *Physical Exam - Vital Signs Last Vital Signs Temp Pulse Resp BP Pulse Ox 98.7 F 92 H 20 159/74 96 02/09/18 15:50 02/09/18 15:50 02/09/18 15:50 02/09/18 15:50 02/09/18 15:50 <Ruperto Doyle - Last Filed: 02/09/18 18:06> - Vital Signs Last Vital Signs Temp Pulse Resp BP Pulse Ox 98.7 F 92 H 20 159/74 96 02/09/18 15:50 02/09/18 15:50 02/09/18 15:50 02/09/18 15:50 02/09/18 15:50 - Physical Exam Comments: 02/09/18 17:57 "GENERAL: Awake, alert, and fully oriented, in no acute distress HEAD: No signs of trauma EYES: PERRLA, EOMI, sclera anicteric, conjunctiva clear ENT: Auricles normal inspection, hearing grossly normal, nares patent, oropharynx clear without exudates. Moist mucosa NECK: Nontender, no stepoffs, Normal ROM, supple, no lymphadenopathy, JVD, or masses LUNGS: Breath sounds equal, clear to auscultation bilaterally. No wheezes, and no crackles HEART: Regular rate and rhythm, normal S1 and S2, no murmurs, rubs or gallops ABDOMEN: Soft, nontender, normoactive bowel sounds. No guarding, no rebound. No masses EXTREMITIES: 2+ BLE edema, L>R, mild erythema NEUROLOGICAL: Cranial nerves II through XII intact. 5/5 strength and sensation in all extremities, Normal speech, normal gait, normal cerebellar function SKIN: Warm, Dry, normal turgor, no rashes or lesions noted. " <Darryl Rosales - Last Filed: 02/10/18 13:01> ED Treatment Course - LABORATORY CBC & Chemistry Diagram: 02/09/18 17:10 02/09/18 17:10 - ADDITIONAL ORDERS Additional order review: Laboratory Results 02/09/18 02/09/18 17:22 17:10 Sodium 142 Potassium 4.0 Chloride 108 H Carbon Dioxide 27 Anion Gap 7 L BUN 34 H D Creatinine 1.3 Creat Clearance w eGFR 52.98 Random Glucose 150 H Calcium 8.8 Total Bilirubin 0.4 D AST 14 L D ALT 22 D Alkaline Phosphatase 32 L D Creatine Kinase 183 Troponin I < 0.02 B-Natriuretic Peptide 617.61 H Total Protein 6.9 Albumin 3.8 D 02/09/18 17:10 RBC 4.21 MCV 96.3 H MCHC 33.9 RDW 13.9 D MPV 7.8 Neutrophils % 64.6 Lymphocytes % 19.9 Monocytes % 10.2 Eosinophils % 4.5 Basophils % 0.8 <Ruperto Doyle - Last Filed: 02/09/18 18:06> - LABORATORY CBC & Chemistry Diagram: 02/10/18 06:00 02/10/18 06:00 - ADDITIONAL ORDERS Additional order review: 02/09/18 17:10 RBC 4.21 MCV 96.3 H MCHC 33.9 RDW 13.9 D MPV 7.8 Neutrophils % 64.6 Lymphocytes % 19.9 Monocytes % 10.2 Eosinophils % 4.5 Basophils % 0.8 - RADIOLOGY Radiology Studies Ordered: Category Date Time Status CHEST CTA [CT] Stat CT Scan 02/09/18 17:13 Ordered DUPLEX VASCUL US-2LEGS [US] Stat Ultrasound 02/09/18 17:12 Ordered <Darryl Rosales - Last Filed: 02/10/18 13:01> Medical Decision Making - Medical Decision Making 02/09/18 18:02 82 M with LLE swelling x 1 month, found to have LLE DVT on outpt US today. Pt with chronic SOB, likely 2/2 COPD. However, given mild tachypnea on exam, will evaluate for PE. - Labs, coags - LE doppler to evaluate extent of clot burden - CTA chest to r/o PE - Trial of nebulizers 02/09/18 18:41 LE doppler is negative in ER. Attempts to call Dr. Mcnulty cell and home phone unsuccessful. (Dr. Mcnulty is not electrical automation engineer today, answering service unable to page) Will defer anticoagulation for now given negative DVT study. CTA chest still pending. Will empirically treat for cellulitis. Pt signed out to Dr. Kwong at 7PM, pending CTA and admission for IV abx. <Darryl Rosales - Last Filed: 02/10/18 13:01> *DC/Admit/Observation/Transfer - Attestations Scribe Attestion: 02/09/18 18:06 Documentation prepared by Ruperto Doyle, acting as medical records coordinator for Darryl Rosales MD. <Ruperto Doyle - Last Filed: 02/09/18 18:06> - Attestations Physician Attestion: 02/10/18 13:01 I, Dr. Darryl Rosales MD, attest that this document has been prepared under my direction and personally reviewed by me in its entirety. I further attest, that it accurately reflects all work, treatment, procedures and medical decision -making performed by me. <Darryl Rosales - Last Filed: 02/10/18 13:01> Diagnosis at time of Disposition: Cellulitis, leg Qualifiers: Laterality: left Qualified Code(s): L03.116 - Cellulitis of left lower limb - Discharge Dispostion Condition at time of disposition: Good
[2018-02-09 18:03] LABS: N-TERMINAL BNP 617.61 pg/ml (5-450)
[2018-02-09] MEDS ORDERED: VANCOMYCIN 1 GRAM (PRE-DOCKED) 1,000 MG/250 ML BAG IVPB ONE (18:44)
--- NOTE | 2018-02-09 20:43 | PDOC ---
*Physical Exam - Vital Signs Last Vital Signs Temp Pulse Resp BP Pulse Ox 98.2 F 70 16 139/70 96 02/09/18 18:28 02/09/18 18:28 02/09/18 18:28 02/09/18 18:28 02/09/18 18:28 ED Treatment Course - LABORATORY CBC & Chemistry Diagram: 02/09/18 17:10 02/09/18 17:10 - ADDITIONAL ORDERS Additional order review: Laboratory Results 02/09/18 02/09/18 02/09/18 17:22 17:10 17:10 PT with INR 12.10 H INR 1.07 PTT (Actin FS) 27.9 Sodium 142 Potassium 4.0 Chloride 108 H Carbon Dioxide 27 Anion Gap 7 L BUN 34 H D Creatinine 1.3 Creat Clearance w eGFR 52.98 Random Glucose 150 H Calcium 8.8 Total Bilirubin 0.4 D AST 14 L D ALT 22 D Alkaline Phosphatase 32 L D Creatine Kinase 183 Creatine Kinase Index 1.2 CK-MB (CK-2) 2.201 Troponin I < 0.02 B-Natriuretic Peptide 617.61 H Total Protein 6.9 Albumin 3.8 D 02/09/18 17:10 RBC 4.21 MCV 96.3 H MCHC 33.9 RDW 13.9 D MPV 7.8 Neutrophils % 64.6 Lymphocytes % 19.9 Monocytes % 10.2 Eosinophils % 4.5 Basophils % 0.8 - Medications Given in the ED: ED Medications Discontinued Medications Generic Name Dose Route Start Last Admin Trade Name Freq PRN Reason Stop Dose Admin Albuterol Sulfate 1 amp 02/09/18 17:30 02/09/18 18:21 Ventolin 0.083% Nebulizer Soln - NEB 02/09/18 17:31 1 amp ONCE ONE Administration Vancomycin HCl 1,000 mg 02/09/18 18:44 02/09/18 19:43 Vancomycin (Pre-Docked) IVPB 02/09/18 18:45 1,000 mg ONCE ONE Administration Protocol Medical Decision Making - Medical Decision Making 02/09/18 20:39 Pt signed out to me by Dr. Rosales as pending admission for cellulitis vs DVT, pending results of CT chest. CT chest is negative. Already given vancomycin by Dr. Rosales. CAse discussed with Jeremie--will admit to the floor. *DC/Admit/Observation/Transfer Diagnosis at time of Disposition: Cellulitis, leg Qualifiers: Laterality: left Qualified Code(s): L03.116 - Cellulitis of left lower limb - Discharge Dispostion Condition at time of disposition: Good Admit: Yes - Referrals Referrals: Mohamud Cadena MD [Primary Care Provider] - - Patient Instructions - Post Discharge Activity
[2018-02-09] MEDS ORDERED: POLYETHYLENE GLYCOL 3350 119 GM BTL PO PRN (21:13)
[2018-02-09] MEDS ORDERED: ALBUTEROL SO4 2.5/IPRATROPIUM 0.5 INH SOL 3 ML VIAL.NEB. NEB PRN (21:13)
[2018-02-09] MEDS ORDERED: INSULIN DETEMIR 100 UNITS/ML MDV SQ SCH (22:00)
[2018-02-09] MEDS ORDERED: PATIENT'S OWN MEDICATION (NON-FORMULARY) (Oxybutynin Chloride [Ditropan Xl] 10 MG) PO SCH (22:00)
[2018-02-09] MEDS ORDERED: LATANOPROST 0.005% OPHTH SOLN 2.5ML BOTTLE OU SCH (22:00)
[2018-02-09] MEDS ORDERED: ATORVASTATIN CA 20 MG TABLET (FP) PO SCH (22:00)
[2018-02-09 22:15] VITALS: BMI 44.1
[2018-02-09] MEDS ORDERED: oxyCODONE HCL 5 MG TABLET PO ONE (22:45)
[2018-02-09] MEDS ORDERED: ACETAMINOPHEN 325 MG TABLET (FP) PO ONE (22:45)
[2018-02-09] MEDS: SOLIFENACIN SUCCINATE 5 MG TAB (FP) PO SCH (23:33)
[2018-02-09] MEDS: BUDESONIDE/FORMETEROL FUMARATE 160/4.5 mcg INHALER IH SCH (23:33)
[2018-02-10] MEDS ORDERED: PT OWN MED DRAWER 7, Y5N ONE ×2 (06:48→09:02)
[2018-02-10 08:14] LABS: CHLORIDE 104 mmol/L (98-107); POTASSIUM 3.9 mmol/L (3.5-5.1); SODIUM 143 mmol/L (136-145)
[2018-02-10 08:21] LABS: BASO % 0.5 % (0-2.0); EOS % 5.1 % (0-4.5); HEMATOCRIT 38.1 % (35.4-49); HEMOGLOBIN 12.8 GM/dL (11.7-16.9); LYMPH % 20.7 % (8-40); MCH 32.6 pg (25.7-33.7); MCHC 33.7 g/dl (32.0-35.9); MEAN CELL VOLUME 96.9 fl (80-96); MEAN PLT VOLUME 7.8 fl (7.5-11.1); MONO % 11.5 % (3.8-10.2); NEUT % 62.2 % (42.8-82.8); PLATELET COUNT 173 K/MM3 (134-434); RBC 3.93 M/mm3 (4.00-5.60); RDW 13.9 % (11.9-15.9); WHITE BLOOD COUNT 6.5 K/mm3 (4.0-10.0)
[2018-02-10 08:23] LABS: ALBUMIN 3.4 g/dl (3.4-5.0); ALK PHOS 30 U/L (45-117); ANION GAP 12 (8-16); BILIRUBIN,TOTAL 0.5 mg/dL (0.2-1.0); BLOOD UREA NITROGEN 27 mg/dL (7-18); CALCIUM 9.2 mg/dL (8.5-10.1); CO2 27 mmol/L (21-32); CREATININE 1.3 mg/dL (0.7-1.3); GLUCOSE,RANDOM 149 mg/dL (74-106); SGOT/AST 16 U/L (15-37); SGPT/ALT 20 U/L (12-78); TOT PROT 6.4 g/dl (6.4-8.2)
--- NOTE | 2018-02-10 08:53 | HP ---
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 DVT and was sent to er for ac. in er us negative for DVT, chest CT negative for PE. has chronic dyspnea. ambulates with two canes. legs especially left has been more swollen for past month, increased skin changes noted. History Source: Patient, Family Member Limitations to Obtaining History: No Limitations - Past Medical History Cardiovascular: Yes: CHF, HTN Pulmonary: Yes: Asthma, COPD Renal/: Yes: BPH, Renal Calculi, UTI Musculoskeletal: Yes: Osteoarthritis, Other (spinal stenosis) Endocrine: Yes: Diabetes Mellitus, Other (obesity) - Smoking History Smoking history: Former smoker Have you smoked in the past 12 months: No If you are a former smoker, when did you quit?: 20 YRS - Alcohol/Substance Use Hx Alcohol Use: No - Social History ADL: Independent History of Recent Travel: No Home Medications - Allergies Allergies/Adverse Reactions: Allergies Allergy/AdvReac Type Severity Reaction Status Date / Time Sulfa (Sulfonamide Allergy Mild Rash Verified 06/30/17 07:49 Antibiotics) - Home Medications Home Medications: Ambulatory Orders Furosemide [Lasix -] 20 mg PO TID 08/05/13 Simvastatin [Zocor -] 40 mg PO HS 08/05/13 Insulin (Levemir) [Levemir Flexpen -] 15 units SQ HS 01/14/17 Oxybutynin Chloride [Ditropan Xl] 10 mg PO TID 01/14/17 Budesonide/Formeterol Fumarate [SYMBICORT 160/4.5mcg -] 2 puff IH BID #1 inhaler 01/21/17 Aspirin [ASA -] 81 mg PO DAILY 01/31/17 Polyethylene Glycol 3350 [Miralax 119 gm Btl -] 17 gm PO Q2D PRN 01/31/17 Albuterol 2.5/Ipratropium 0.5 [Duoneb -] 1 neb IH QID 06/27/17 Atenolol [Tenormin -] 25 mg PO DAILY 06/27/17 Fenofibrate Nanocrystallized [Tricor] 145 mg PO DAILY 06/27/17 Glipizide/Metformin HCl [Glipizide-Metformin 5-500 mg] 1 each PO BID 06/27/17 Latanoprost 0.005% Eye Drops [Xalatan 0.005% Eye Drops -] 1 drop OU HS 06/27/17 Mirabegron [Myrbetriq] 50 mg PO DAILY 06/27/17 Potassium Chloride [Klor-Con M10] 30 meq PO DAILY 06/27/17 Salmeterol/Fluticasone [Advair 500Mcg/50Mcg -] 1 inh PO BID 06/27/17 Cephalexin [Keflex] 500 mg PO BID #14 capsule 02/10/18 Physical Examination Vital Signs: Vital Signs Temperature 98.2 F 02/10/18 06:00 Pulse Rate 72 02/10/18 06:00 Respiratory Rate 20 02/10/18 06:00 Blood Pressure 115/73 02/10/18 06:00 O2 Sat by Pulse Oximetry (%) 99 02/09/18 23:00 Constitutional: Yes: Calm, Obese Eyes: Yes: EOM Intact HENT: Yes: Normocephalic Neck: Yes: Trachea Midline Cardiovascular: Yes: Regular Rate and Rhythm Respiratory: Yes: CTA Bilaterally Gastrointestinal: Yes: Normal Bowel Sounds, Soft Musculoskeletal: Yes: Back Pain, Joint Stiffness Edema: Yes Edema: LLE: 1+, RLE: 1+ Peripheral Pulses WNL: Yes Integumentary: Yes: Erythema (over bth lower ext. left more than right), Venous Stasis Changes Neurological: Yes: WNL ...Motor Strength: WNL Psychiatric: Yes: WNL Labs: CBC, BMP 02/10/18 06:00 02/10/18 06:00 Imaging - Results Cat Scan: Report Reviewed Ultrasound: Report Reviewed Problem List - Problems (1) Cellulitis, leg Code(s): L03.119 - CELLULITIS OF UNSPECIFIED PART OF LIMB Qualifiers: Laterality: left Qualified Code(s): L03.116 - Cellulitis of left lower limb (2) CHF (congestive heart failure) Code(s): I50.9 - HEART FAILURE, UNSPECIFIED (3) COPD (chronic obstructive pulmonary disease) Code(s): J44.9 - CHRONIC OBSTRUCTIVE PULMONARY DISEASE, UNSPECIFIED Qualifiers: COPD type: unspecified COPD Qualified Code(s): J44.9 - Chronic obstructive pulmonary disease, unspecified (4) Diabetes mellitus Code(s): E11.9 - TYPE 2 DIABETES MELLITUS WITHOUT COMPLICATIONS Qualifiers: Diabetes mellitus type: type 2 Diabetes mellitus mcc insulin use: with mcc use Diabetes mellitus complication status: with unspecified complications Qualified Code(s): E11.8 - Type 2 diabetes mellitus with unspecified complications (5) HTN (hypertension) Code(s): I10 - ESSENTIAL (PRIMARY) HYPERTENSION Qualifiers: Hypertension type: essential hypertension Qualified Code(s): I10 - Essential (primary) hypertension Assessment/Plan iv abx for cellulitis for now will get records form office regarding ? DVT vascular consult requested for now DVT prophylaxis only
[2018-02-10] MEDS: BUDESONIDE/FORMETEROL FUMARATE 160/4.5 mcg INHALER IH SCH (09:09)
[2018-02-10] MEDS: AMPICILLIN NA/SULBACTAM NA 1.5 GM in SODIUM CHLORIDE 100 ML IVPB SCH ×2 (09:34→16:37)
[2018-02-10] MEDS ORDERED: FENOFIBRIC ACID 135 MG CAP PO SCH (10:00)
[2018-02-10] MEDS ORDERED: ENOXAPARIN NA (PORCINE) 40 MG/0.4 ML DISP.SYRIN SQ SCH (10:00)
[2018-02-10] MEDS ORDERED: POTASSIUM CHLORIDE TABS 10 MEQ TABLET.ER (FP) PO SCH (10:00)
[2018-02-10] MEDS ORDERED: PATIENT'S OWN MEDICATION (NON-FORMULARY) (Mirabegron [Myrbetriq] 50 MG) PO SCH (10:00)
[2018-02-10] MEDS ORDERED: ASPIRIN 81 MG CHEWABLE TABLETS PO SCH (10:00)
[2018-02-10] MEDS ORDERED: ATENOLOL 25 MG TABLET (FP) PO SCH (10:00)
[2018-02-10] MEDS ORDERED: FUROSEMIDE 40 MG TABLET (FP) PO SCH (10:00)
--- NOTE | 2018-02-10 10:19 | PN ---
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 I (JENIFER Swan) spoke with Dr. Torres this morning and she said that th rafaltient was recently at his cardiologust and had a LE ultrasound which showed non-compressible veins, no evidence of DVT. Sent to ER for further evaluation. While in the ER, he had a LE U/S which only shows edma/fluid bilat LE, no evidence of DVT. He is resting comfortably. NAD. Denies CP, palpitations, SOB, dizziness. Last Vital Signs Temp Pulse Resp BP Pulse Ox 97.7 F 75 18 123/68 2 L 02/10/18 09:22 02/10/18 09:22 02/10/18 09:22 02/10/18 09:22 02/10/18 08:55 CBC, BMP 02/10/18 06:00 02/10/18 06:00 Gen: nad LE: chronic venous staisis changes. feet are warm bilaterally. Palpable DP bilat. Problem List - Problems (1) Swelling of both lower extremities Assessment/Plan: Patient has vascular study which confirms a negative DVT. His LE swelling most likely secondary to his CHF. Light KEE compression bilat Elevate legs while seated in chair or while supine in bed No further vascular intervention. Cont medical management Code(s): M79.89 - OTHER SPECIFIED SOFT TISSUE DISORDERS
--- NOTE | 2018-02-10 12:34 | EKG ---
Test Reason : Blood Pressure : / mmHG Vent. Rate : 091 BPM Atrial Rate : 084 BPM P-R Int : 000 ms QRS Dur : 128 ms QT Int : 406 ms P-R-T Axes : 000 055 020 degrees QTc Int : 499 ms POOR DATA QUALITY, INTERPRETATION MAY BE ADVERSELY AFFECTED SINUS RHYTHM RIGHT BUNDLE BRANCH BLOCK ABNORMAL ECG Confirmed by MD FELICITY, EMILY ([id number]) on 02/10/2018 12:34:18 PM Referred By: Confirmed By:EMILY BLEVINS MD
[2018-02-10 15:18] VITALS: BP 133/71; PULSE 77; TEMP 98.8
[2018-02-10] MEDS ORDERED: INSULIN SLIDING SCALE (NOVOLOG) 1 VIAL SQ SCH (16:30)
[2018-02-10] MEDS: SOLIFENACIN SUCCINATE 5 MG TAB (FP) PO SCH (16:38)
--- NOTE | 2018-02-11 08:30 | DS ---
Physical Examination Vital Signs: Vital Signs Temperature 98.8 F 02/10/18 14:52 Pulse Rate 77 02/10/18 14:52 Respiratory Rate 20 02/10/18 14:52 Blood Pressure 133/71 02/10/18 14:52 O2 Sat by Pulse Oximetry (%) 2 L 02/10/18 08:55 Labs: CBC, BMP 02/10/18 06:00 02/10/18 06:00 Discharge Summary Reason For Visit: CELLULTIS OF LOWER EXTREMITY Hospital Course: please see H+P. called cardiology office-US showed non-compressible veins, but no thrombus, hence er referral. d/w cardiology, repeat US negative, CT angio for PE negative. no need for further evaluation, will treat cellulitis with oral abx and re- evaluate in office. Condition: Good - Instructions Diet, Activity, Other Instructions: only resume metformin on 02.11.18 f/up with in 1 week Referrals: Mohamud Cadena MD [Primary Care Provider] - Disposition: HOME - Home Medications Comprehensive Discharge Medication List: Ambulatory Orders Furosemide [Lasix -] 20 mg PO TID 08/05/13 Simvastatin [Zocor -] 40 mg PO HS 08/05/13 Insulin (Levemir) [Levemir Flexpen -] 15 units SQ HS 01/14/17 Oxybutynin Chloride [Ditropan Xl] 10 mg PO TID 01/14/17 Budesonide/Formeterol Fumarate [SYMBICORT 160/4.5mcg -] 2 puff IH BID #1 inhaler 01/21/17 Aspirin [ASA -] 81 mg PO DAILY 01/31/17 Polyethylene Glycol 3350 [Miralax 119 gm Btl -] 17 gm PO Q2D PRN 01/31/17 Albuterol 2.5/Ipratropium 0.5 [Duoneb -] 1 neb IH QID 06/27/17 Atenolol [Tenormin -] 25 mg PO DAILY 06/27/17 Fenofibrate Nanocrystallized [Tricor] 145 mg PO DAILY 06/27/17 Glipizide/Metformin HCl [Glipizide-Metformin 5-500 mg] 1 each PO BID 06/27/17 Latanoprost 0.005% Eye Drops [Xalatan 0.005% Eye Drops -] 1 drop OU HS 06/27/17 Mirabegron [Myrbetriq] 50 mg PO DAILY 06/27/17 Potassium Chloride [Klor-Con M10] 30 meq PO DAILY 06/27/17 Salmeterol/Fluticasone [Advair 500Mcg/50Mcg -] 1 inh PO BID 06/27/17 Cephalexin [Keflex] 500 mg PO BID #14 capsule 02/10/18
== END 2018-02-10 18:04 | disposition home or self-care (01) ==
LOC: SUPCPDRO 15:25 → JER 15:25 → UNDOADMOB 20:43 → JERBED 20:43 → INTOOBSV 20:43 → J7W 21:36 → JERBED 21:36 → J7W 02-10 06:39
PROVIDERS: ADMIT Internal Medicine; ATTEND Internal Medicine
PROC: 3E03329 Introduction of Other Anti-infective into Peripheral Vein, Percutaneous Approach (ICD-10-PCS; principal; 2018-02-10)
PROC: 3E013VG Introduction of Insulin into Subcutaneous Tissue, Percutaneous Approach (ICD-10-PCS; 2018-02-10)
PROC: 3E013GC Introduction of Other Therapeutic Substance into Subcutaneous Tissue, Percutaneous Approach (ICD-10-PCS; 2018-02-10)
PROC: 3E0F7GC Introduction of Other Therapeutic Substance into Respiratory Tract, Via Natural or Artificial Opening (ICD-10-PCS; 2018-02-10)
DX: L03.116 Cellulitis of left lower limb (principal); I50.9 Heart failure, unspecified; J44.9 Chronic obstructive pulmonary disease, unspecified; E11.9 Type 2 diabetes mellitus without complications; I10 Essential (primary) hypertension; N40.0 Benign prostatic hyperplasia without lower urinary tract symptoms; R60.0 Localized edema; E66.9 Obesity, unspecified; Z87.891 Personal history of nicotine dependence; Z88.2 Allergy status to sulfonamides; Z79.4 Long term (current) use of insulin; Z79.82 Long term (current) use of aspirin; Z79.84 Long term (current) use of oral hypoglycemic drugs
CPT/HCPCS: 36415; 71275-TC; 80053; 82550; 82553; 82962; 83880; 84484; 85025; 85610; 85730; 93005; 93010; 93970-TC; 94640; 96372; 96374; 99284-25; G0378

== ENCOUNTER 2018-08-12 12:02 | Inpatient (IN) | payer OTHER ==
--- NOTE | 2018-08-12 13:51 | PDOC ---
History of Present Illness - History of Present Illness Initial Comments: Patient is an 83 year old male with PMHx of diabetes mellitus, lymphedema, CHF, HTN, Asthma, COPD, BPH, Renal Calculi, UTI, Osteoarthritis, spinal stenosis, who presents to the ED complaining of bloody drainage and discoloration of b/l toes for approx. 1 week. Patients family member states that he was given a lymphedema pump 1.5 months ago, which he states has been helping the patients b/ l legs but states that his b/l feet have progressively worsened. He also complains of increased errythema, pain, and swelling in b/l feet. He also reports mild SOB and increased urinary frequency which is chronic. He called his PCP who advised him to go to the ER. He has a scheduled vascualr appt. on . PCP: Mohamud Cadena Hx: Former smoker (quit 20 years ago) Vascular Surgeon: Dr. Phelps. <Vanesa Monsalve - Last Filed: 08/12/18 16:30> <Tristan Toney - Last Filed: 08/12/18 18:32> - General Chief Complaint: Edema Stated Complaint: EDEMA Time Seen by Provider: 08/12/18 13:38 Past History <Vanesa Monsalve - Last Filed: 08/12/18 16:30> - Past Medical History Anemia: No Asthma: Yes Cancer: No Cardiac Disorders: No (MILD CHF) CVA: No COPD: No CHF: Yes DVT: No Dementia: No Diabetes: Yes (SINCE 2012-STARTED MEDS) GI Disorders: No Disorders: Yes (NEPHROSTOMY TUBE (INTERNAL)) HTN: Yes Hypercholesterolemia: Yes Liver Disease: No Seizures: No Thyroid Disease: No - Surgical History Abdominal Surgery: No Appendectomy: No Cardiac Surgery: No Cholecystectomy: No Lung Surgery: No Neurologic Surgery: No Orthopedic Surgery: Yes (KNEE SX YEARS AGO) - Suicide/Smoking/Psychosocial Hx Smoking History: Never smoked Have you smoked in the past 12 months: No If you are a former smoker, when did you quit?: 20 YRS Information on smoking cessation initiated: Yes Hx Alcohol Use: No Drug/Substance Use Hx: No Substance Use Type: None Hx Substance Use Treatment: No <Tristan Toney - Last Filed: 08/12/18 18:32> - Past Medical History Allergies/Adverse Reactions: Allergies Allergy/AdvReac Type Severity Reaction Status Date / Time Sulfa (Sulfonamide Allergy Mild Rash Verified 08/12/18 12:15 Antibiotics) Home Medications: Ambulatory Orders Furosemide [Lasix -] 20 mg PO TID 08/05/13 Simvastatin [Zocor -] 40 mg PO HS 08/05/13 Insulin (Levemir) [Levemir Flexpen -] 15 units SQ HS 01/14/17 Oxybutynin Chloride [Ditropan Xl] 10 mg PO TID 01/14/17 Budesonide/Formeterol Fumarate [SYMBICORT 160/4.5mcg -] 2 puff IH BID #1 inhaler 01/21/17 Aspirin [ASA -] 81 mg PO DAILY 01/31/17 Polyethylene Glycol 3350 [Miralax 119 gm Btl -] 17 gm PO Q2D PRN 01/31/17 Albuterol 2.5/Ipratropium 0.5 [Duoneb -] 1 neb IH QID 06/27/17 Atenolol [Tenormin -] 25 mg PO DAILY 06/27/17 Fenofibrate Nanocrystallized [Tricor] 145 mg PO DAILY 06/27/17 Glipizide/Metformin HCl [Glipizide-Metformin 5-500 mg] 1 each PO BID 06/27/17 Latanoprost 0.005% Eye Drops [Xalatan 0.005% Eye Drops -] 1 drop OU HS 06/27/17 Mirabegron [Myrbetriq] 50 mg PO DAILY 06/27/17 Potassium Chloride [Klor-Con M10] 30 meq PO DAILY 06/27/17 Salmeterol/Fluticasone [Advair 500Mcg/50Mcg -] 1 inh PO BID 06/27/17 Cephalexin [Keflex] 500 mg PO BID #14 capsule 02/10/18 Review of Systems - Review of Systems Comments:: CONSTITUTIONAL: No fever, no chills, no fatigue EYES: No visual changes ENT: No ear pain, no sore throat CARDIOVASCULAR: No chest pain, no palpitations RESPIRATORY: No cough, + mild SOB GI: No abdominal pain, no nausea, no vomiting, no constipation, no diarrhea GENITOURINARY: No dysuria, no frequency, no hematuria MUSKULOSKELETAL: No back pain, no joint pain, no myalgias SKIN: +pain, reddness, and swelling to b/l LE. NEURO: No headache <Vanesa Monsalve - Last Filed: 08/12/18 16:30> *Physical Exam - Vital Signs Last Vital Signs Temp Pulse Resp BP Pulse Ox 98.4 F 71 19 118/41 97 08/12/18 12:12 08/12/18 12:12 08/12/18 12:12 08/12/18 12:12 08/12/18 12:12 <Vanesa Monsalve - Last Filed: 08/12/18 16:30> - Vital Signs Last Vital Signs Temp Pulse Resp BP Pulse Ox 98.4 F 71 19 118/41 97 08/12/18 12:12 08/12/18 12:12 08/12/18 12:12 08/12/18 12:12 08/12/18 12:12 - Physical Exam Comments: 08/12/18 18:25 EXAMINATION CONSTITUTIONAL: Awake and alert, obese; in no distress HEAD: Normocephalic; atraumatic EYES: PERRL; EOM intact ENMT: External appears normal; normal oropharynx NECK: Supple; non-tender; no cervical lymphadenopathy CARD: Normal S1, S2; no murmurs, rubs, or gallops RESP: Normal chest excursion with respiration; breath sounds clear and equal bilaterally; no wheezes, rhonchi, or rales ABD: Soft, non-distended; non-tender; no palpable organomegaly, no palpable hernias EXT: No obvious deformity; hyperpigmentation of the right lower extremity and well demarcated erythema to the left lower extremity likely related to chronic venous stasis dermatitis and unlikely related to cellulitis; bilateral extensive toe dactilitis, with paronychia draining clear serous fluid; dorsalis pedis is +1 bilaterally; unable to palpate tibialis posterior or popliteal pulses; strong femoral pulses noted bilaterally; toes are warm bilaterally with cap Refill of less than 3 seconds; SKIN: Warm, dry, see above NEURO: No focal neurological deficiencies. <Tristan Toney - Last Filed: 08/12/18 18:32> ED Treatment Course - LABORATORY CBC & Chemistry Diagram: 08/12/18 14:55 08/12/18 14:55 <Vanesa Monsalve - Last Filed: 08/12/18 16:30> - LABORATORY CBC & Chemistry Diagram: 08/12/18 14:55 08/12/18 14:55 <Tristan Toney - Last Filed: 08/12/18 18:32> Medical Decision Making - Medical Decision Making 08/12/18 18:29 Patient was extensive toe and foot edema bilaterally draining serous fluid. Doppler ultrasound shows no evidence of DVT. Arterial study bilaterally shows occlusion of the posterior tibial arteries bilaterally and biphasic wave form proximally suggestive of vascular disease. Patient's symptoms are unlikely related to acute arterial insufficiency given the chronicity of over a month. Case discussed with Dr. Phelps. Patient will require leg elevation, treatment of edema and wound care. Will place and observation at this time. <Tristan Toney - Last Filed: 08/12/18 18:32> *DC/Admit/Observation/Transfer - Attestations Scribe Attestion: 08/12/18 14:12 Documentation prepared by Vanesa Monsalve, acting as medical transcription supervisor for Tristan Toney MD. <Vanesa Monsalve - Last Filed: 08/12/18 16:30> - Discharge Dispostion Decision to Admit order: Yes <Tristan Toney - Last Filed: 08/12/18 18:32> Diagnosis at time of Disposition: Edema of both feet, Stasis dermatitis of both legs - Discharge Dispostion Condition at time of disposition: Fair - Referrals Referrals: Mohamud Cadena MD [Primary Care Provider] - - Patient Instructions - Post Discharge Activity
[2018-08-12 15:02] LABS: BASO % 0.8 % (0-2.0); EOS % 6.5 % (0-4.5); HEMATOCRIT 41.3 % (35.4-49); LYMPH % 22.8 % (8-40); MCH 31.6 pg (25.7-33.7); MCHC 33.9 g/dl (32.0-35.9); MEAN CELL VOLUME 93.4 fl (80-96); MEAN PLT VOLUME 7.2 fl (7.5-11.1); MONO % 9.2 % (3.8-10.2); NEUT % 60.7 % (42.8-82.8); PLATELET COUNT 212 K/MM3 (134-434); RBC 4.42 M/mm3 (4.00-5.60); RDW 14.2 % (11.9-15.9)
[2018-08-12 15:23] LABS: INR 1.05 (0.83-1.09); PROTHROMBIN TIME (PATIENT) 11.9 SEC (9.7-13.0)
[2018-08-12 15:33] LABS: ALBUMIN 3.7 g/dl (3.4-5.0); ANION GAP 8 MMOL/L (8-16); BLOOD UREA NITROGEN 28 mg/dL (7-18); CHLORIDE 105 mmol/L (98-107); CO2 30 mmol/L (21-32); GLUCOSE,RANDOM 64 mg/dL (74-106); POTASSIUM 3.9 mmol/L (3.5-5.1); SODIUM 143 mmol/L (136-145)
[2018-08-12 15:36] LABS: ALK PHOS 35 U/L (45-117); BILIRUBIN,TOTAL 0.5 mg/dL (0.2-1.0); CREATININE 1.4 mg/dL (0.7-1.3); SGOT/AST 17 U/L (15-37); SGPT/ALT 22 U/L (12-78); TOT PROT 6.9 g/dl (6.4-8.2)
--- NOTE | 2018-08-12 15:58 | EKG ---
Test Reason : Blood Pressure : / mmHG Vent. 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
[2018-08-12] MEDS ORDERED: SODIUM CHLORIDE 500 ML IV STA (17:23)
[2018-08-12] MEDS ORDERED: FUROSEMIDE 40 MG/4 ML INJECTABLE VIAL IVPUSH ONE (17:30)
[2018-08-12] MEDS ORDERED: ALBUTEROL SO4 2.5/IPRATROPIUM 0.5 INH SOL 3 ML VIAL.NEB. NEB PRN (20:43)
[2018-08-12] MEDS ORDERED: POLYETHYLENE GLYCOL 3350 119 GM BTL PO PRN (20:43)
[2018-08-12] MEDS ORDERED: PATIENT'S OWN MEDICATION (NON-FORMULARY) (Glipizide/Metformin Hcl [Glipizide-Metformin 5-5 PO SCH (22:00)
[2018-08-12] MEDS: FUROSEMIDE 20 MG TABLET (FP) PO SCH (22:36)
[2018-08-12] MEDS ORDERED: FUROSEMIDE 40 MG/4 ML INJECTABLE VIAL ONE (22:39)
[2018-08-12] MEDS: ATORVASTATIN CA 20 MG TABLET (FP) PO SCH (22:44)
[2018-08-12] MEDS: INSULIN (LEVEMIR) 100 UNITS/ML UNITS SQ SCH (22:45)
[2018-08-12] MEDS ORDERED: diphenhydrAMINE HCL 25 MG CAPSULE (FP) PO ONE (22:45)
[2018-08-12] MEDS: BUDESONIDE/FORMETEROL FUMARATE 160/4.5 mcg INHALER IH SCH (22:45)
[2018-08-12] MEDS: LATANOPROST 0.005% OPHTH SOLN 2.5ML BOTTLE OU SCH (22:46)
[2018-08-12] MEDS ORDERED: PT OWN MED DRAWER 7, Y5N ONE (22:55)
[2018-08-13] MEDS: FUROSEMIDE 20 MG TABLET (FP) PO SCH (06:57)
[2018-08-13] MEDS: metFORMIN HCL 500 MG TABLET (FP) PO SCH ×2 (06:57→16:35)
[2018-08-13] MEDS: glipiZIDE 5 MG TABLET (FP) PO SCH ×2 (06:57→16:35)
[2018-08-13] MEDS ORDERED: PT OWN MED DRAWER 7, Y5N ONE ×2 (08:46→22:10)
--- NOTE | 2018-08-13 08:47 | HP ---
Admitting History and Physical - Primary Care Physician PCP: Mohamud Cadena - Admission Chief Complaint: foot pains and lesion History of Present Illness: pt has had chronic lower extremity pains and chronic venous stasis, has been treated for cellulitis multiple times in past. last couple days pain has gotten worse and feet started oozing serous fluid History Source: Patient, Family Member Limitations to Obtaining History: Language Barrier - Past Medical History Cardiovascular: Yes: CHF, HTN Pulmonary: Yes: Asthma, COPD Renal/: Yes: BPH, Renal Calculi, UTI Musculoskeletal: Yes: Osteoarthritis, Other (spinal stenosis) Endocrine: Yes: Diabetes Mellitus, Other (obesity) - Smoking History Smoking history: Former smoker Have you smoked in the past 12 months: No If you are a former smoker, when did you quit?: 35 years ago - Alcohol/Substance Use Hx Alcohol Use: Yes (socially- glass of wine) - Social History ADL: Independent History of Recent Travel: No Home Medications - Allergies Allergies/Adverse Reactions: Allergies Allergy/AdvReac Type Severity Reaction Status Date / Time Sulfa (Sulfonamide Allergy Mild Rash Verified 08/12/18 12:15 Antibiotics) - Home Medications Home Medications: Ambulatory Orders Furosemide [Lasix -] 20 mg PO TID 08/05/13 Simvastatin [Zocor -] 40 mg PO HS 08/05/13 Insulin (Levemir) [Levemir Flexpen -] 20 units SQ HS 01/14/17 Albuterol 2.5/Ipratropium 0.5 [Duoneb -] 1 neb IH QID 06/27/17 Atenolol [Tenormin -] 25 mg PO DAILY 06/27/17 Glipizide/Metformin HCl [Glipizide-Metformin 5-500 mg] 1 each PO BID 06/27/17 Latanoprost 0.005% Eye Drops [Xalatan 0.005% Eye Drops -] 1 drop OU HS 06/27/17 Mirabegron [Myrbetriq] 25 mg PO DAILY 06/27/17 Potassium Chloride [Klor-Con M10] 10 meq PO DAILY 06/27/17 Betamethasone Valerate [Valisone] 1 applic TP ASDIR 08/12/18 Docusate Sodium [Colace] 100 mg PO DAILY 08/12/18 Donepezil HCl [Aricept] 5 mg PO DAILY 08/12/18 Empagliflozin [Jardiance] 25 mg PO DAILY 08/12/18 Fenofibrate Nanocrystallized [Tricor] 145 mg PO DAILY 08/12/18 Fluconazole [Diflucan -] 100 mg PO DAILY 08/12/18 Hydrochlorothiazide [Hctz -] 25 mg PO DAILY 08/12/18 Hydrocortisone 1% Cream [Hytone 1% Cream -] 1 applic TP DAILY 08/12/18 Lutein Extract/Zeaxanthin Ext [Lutein 15 mg Softgel] 1 each PO DAILY 08/12/18 Mupirocin Cream [Bactroban 2% Cream -] 1 applic TP ASDIR 08/12/18 Mv-Mn/Lutein/Zeax/Bilber/Hb277 [Macular Health Formula Capsule] 1 each PO DAILY 08/12/18 Nystatin Cream [Mycostatin Cream -] 1 applic TP ASDIR 08/12/18 Omeprazole 20 mg PO DAILY 08/12/18 Oxybutynin Chloride [Ditropan Xl] 15 mg PO DAILY 08/12/18 Silver Sulfadiazine 1% Top Cr [Silvadene -] 1 applic TP ASDIR 08/12/18 Sitagliptin Phosphate [Januvia] 100 mg PO DAILY 08/12/18 Tamsulosin HCl [Flomax] 0.4 mg PO DAILY 08/12/18 Vit C/E/Zn/Coppr/Lutein/Zeaxan [Preservision Areds 2 Softgel] 1 each PO BID 11/17 Vit C/Vit E/Lutein/Min/[place]-3 [Ocuvite Softgel] 1 each PO BID 08/12/18 Family Disease History - Family Disease History Family History: Unremarkable Review of Systems - Review of Systems Musculoskeletal: reports: Back Pain, Other (chornic leg pains, now has pain in his feet, burning, tingling and itching) Neurological: reports: No Symptoms Hematology/Lymphatic: reports: No Symptoms Psychiatric: reports: No Symptoms Physical Examination Vital Signs: Vital Signs Temperature 97.7 F 08/13/18 05:45 Pulse Rate 68 08/13/18 05:45 Respiratory Rate 20 08/13/18 05:45 Blood Pressure 129/59 08/13/18 05:45 O2 Sat by Pulse Oximetry (%) 95 08/12/18 22:00 Constitutional: Yes: Well Nourished, No Distress, Obese Eyes: Yes: Conjunctiva Clear HENT: Yes: Atraumatic, Normocephalic Neck: Yes: Trachea Midline Cardiovascular: Yes: Regular Rate and Rhythm Respiratory: Yes: Wheezes (scattered bilateral) Gastrointestinal: Yes: Normal Bowel Sounds, Soft Musculoskeletal: Yes: Back Pain, Joint Stiffness Extremities: No: Calf Tenderness, Cold Edema: Yes Edema: LLE: 2+, RLE: 2+ Peripheral Pulses WNL: No (diminished) Integumentary: Yes: Venous Stasis Changes (chronic venous stasis changes in both lower extremities both feet have ++ edema with sausage-like toes ozzing serous fluid warmth, erythema also present), Other Neurological: Yes: WNL Psychiatric: Yes: WNL Labs: CBC, BMP 08/12/18 14:55 08/12/18 14:55 Imaging - Results Chest X-ray: Report Reviewed (left lower lobe density? vs. fluid) Other: Report Reviewed (arterial doppler shows popliteal artery occlusion on both sides) Problem List - Problems (1) PAD (peripheral artery disease) Code(s): I73.9 - PERIPHERAL VASCULAR DISEASE, UNSPECIFIED (2) PAD (peripheral artery disease) Code(s): I73.9 - PERIPHERAL VASCULAR DISEASE, UNSPECIFIED (3) Edema of both feet Code(s): R60.0 - LOCALIZED EDEMA (4) Stasis dermatitis of both legs Code(s): I87.2 - VENOUS INSUFFICIENCY (CHRONIC) (PERIPHERAL) (5) CHF (congestive heart failure) Code(s): I50.9 - HEART FAILURE, UNSPECIFIED (6) COPD (chronic obstructive pulmonary disease) Code(s): J44.9 - CHRONIC OBSTRUCTIVE PULMONARY DISEASE, UNSPECIFIED Qualifiers: COPD type: unspecified COPD Qualified Code(s): J44.9 - Chronic obstructive pulmonary disease, unspecified (7) Diabetes mellitus Code(s): E11.9 - TYPE 2 DIABETES MELLITUS WITHOUT COMPLICATIONS Qualifiers: Diabetes mellitus type: type 2 Diabetes mellitus correction insulin use: with correction use Diabetes mellitus complication status: with unspecified complications Qualified Code(s): E11.8 - Type 2 diabetes mellitus with unspecified complications (8) HTN (hypertension) Code(s): I10 - ESSENTIAL (PRIMARY) HYPERTENSION Qualifiers: Hypertension type: essential hypertension Qualified Code(s): I10 - Essential (primary) hypertension Assessment/Plan iv diuresis with close monitoring of renal functions ID consult and vascular consult requested to evaluate for PAD+-cellulitis? keep legs elevated DVT prophylaxis chest CT to evaluate questionable left sided density
[2018-08-13] MEDS: POTASSIUM CHLORIDE TABS 10 MEQ TABLET.ER (FP) PO SCH (08:59)
[2018-08-13] MEDS: ATENOLOL 25 MG TABLET (FP) PO SCH (08:59)
[2018-08-13] MEDS: BUDESONIDE/FORMETEROL FUMARATE 160/4.5 mcg INHALER IH SCH ×2 (09:00→21:39)
[2018-08-13] MEDS: ASPIRIN 81 MG CHEWABLE TABLETS PO SCH (09:00)
[2018-08-13] MEDS: FENOFIBRIC ACID 135 MG CAP PO SCH (09:00)
[2018-08-13] MEDS ORDERED: PATIENT'S OWN MEDICATION (NON-FORMULARY) (Mirabegron [Myrbetriq] 50 MG) PO SCH (10:00)
[2018-08-13] MEDS: ENOXAPARIN NA (PORCINE) 40 MG/0.4 ML DISP.SYRIN SQ SCH (10:44)
[2018-08-13] MEDS: ALBUTEROL SO4 2.5/IPRATROPIUM 0.5 INH SOL 3 ML VIAL.NEB. NEB SCH ×3 (11:46→20:42)
--- NOTE | 2018-08-13 13:52 | CONSULT ---
<Gordy Phelps - Last Filed: 08/13/18 17:27> - Consultation REQUESTING PROVIDER: CONSULT REQUEST: We have been asked to surgically evaluate this patient for ( specify). PCP:Selena Chao HISTORY OF PRESENT ILLNESS: PMHx: PSHx: Home Medications Medication Instructions Recorded Furosemide [Lasix -] 20 mg PO TID 08/05/13 Simvastatin [Zocor -] 40 mg PO HS 08/05/13 Insulin (Levemir) [Levemir Flexpen 20 units SQ HS 01/14/17 -] Albuterol 2.5/Ipratropium 0.5 1 neb IH QID 06/27/17 [Duoneb -] Atenolol [Tenormin -] 25 mg PO DAILY 06/27/17 Glipizide/Metformin HCl 1 each PO BID 06/27/17 [Glipizide-Metformin 5-500 mg] Latanoprost 0.005% Eye Drops 1 drop OU HS 06/27/17 [Xalatan 0.005% Eye Drops -] Mirabegron [Myrbetriq] 25 mg PO DAILY 06/27/17 Potassium Chloride [Klor-Con M10] 10 meq PO DAILY 06/27/17 Betamethasone Valerate [Valisone] 1 applic TP ASDIR 08/12/18 Docusate Sodium [Colace] 100 mg PO DAILY 08/12/18 Donepezil HCl [Aricept] 5 mg PO DAILY 08/12/18 Empagliflozin [Jardiance] 25 mg PO DAILY 08/12/18 Fenofibrate Nanocrystallized 145 mg PO DAILY 08/12/18 [Tricor] Fluconazole [Diflucan -] 100 mg PO DAILY 08/12/18 Hydrochlorothiazide [Hctz -] 25 mg PO DAILY 08/12/18 Hydrocortisone 1% Cream [Hytone 1% 1 applic TP DAILY 08/12/18 Cream -] Lutein Extract/Zeaxanthin Ext 1 each PO DAILY 08/12/18 [Lutein 15 mg Softgel] Mupirocin Cream [Bactroban 2% 1 applic TP ASDIR 08/12/18 Cream -] Mv-Mn/Lutein/Zeax/Bilber/Hb277 1 each PO DAILY 08/12/18 [Macular Health Formula Capsule] Nystatin Cream [Mycostatin Cream -] 1 applic TP ASDIR 08/12/18 Omeprazole 20 mg PO DAILY 08/12/18 Oxybutynin Chloride [Ditropan Xl] 15 mg PO DAILY 08/12/18 Silver Sulfadiazine 1% Top Cr 1 applic TP ASDIR 08/12/18 [Silvadene -] Sitagliptin Phosphate [Januvia] 100 mg PO DAILY 08/12/18 Tamsulosin HCl [Flomax] 0.4 mg PO DAILY 08/12/18 Vit C/E/Zn/Coppr/Lutein/Zeaxan 1 each PO BID 08/12/18 [Preservision Areds 2 Softgel] Vit C/Vit E/Lutein/Min/[place]-3 1 each PO BID 08/12/18 [Ocuvite Softgel] Allergies Allergy/AdvReac Type Severity Reaction Status Date / Time Sulfa (Sulfonamide Allergy Mild Rash Verified 08/12/18 12:15 Antibiotics) REVIEW OF SYSTEMS: CONSTITUTIONAL: Absent: fever, chills, diaphoresis, generalized weakness, malaise, loss of appetite, weight change CARDIOVASCULAR: Absent: chest pain, syncope, palpitations, irregular heart rate, lightheadedness , peripheral edema RESPIRATORY: Absent: cough, shortness of breath, dyspnea with exertion, wheezing, stridor, hemoptysis GASTROINTESTINAL: Absent: abdominal pain, abdominal distension, nausea, vomiting, diarrhea, constipation, melena, hematochezia GENITOURINARY: Absent: dysuria, frequency, urgency, hesitancy, hematuria, flank pain, genital pain MUSCULOSKELETAL: Absent: myalgia, arthralgia, joint swelling, back pain, neck pain SKIN: Absent: rash, itching, pallor HEMATOLOGIC/IMMUNOLOGIC: Absent: easy bleeding, easy bruising, lymphadenopathy NEUROLOGIC: Absent: headache, focal weakness, paresthesias, dizziness, unsteady gait, seizure, mental status changes, bladder or bowel incontinence PSYCHIATRIC: Absent: anxiety, depression, suicidal or homicidal ideation, hallucinations. PHYSICAL EXAM: GENERAL: Awake, alert, and fully oriented, in no acute distress. HEAD: Normal with no signs of trauma. EYES: PERRL, sclera anicteric, conjunctiva clear. NECK: Normal ROM, supple without lymphadenopathy, JVD, or masses. LUNGS: Clear to auscultation bilat anteriorly. No wheezes, and no crackles. No accessory muscle use. HEART: Regular rate and rhythm. No murmurs ABDOMEN: Soft, nontender, not distended, normoactive bowel sounds, no guarding, no rebound, no masses. No organomegaly. MUSCULOSKELETAL: Normal ROM at all joints. No bony deformities or tenderness. No CVA tenderness. UPPER EXTREMITIES: 2+ pulses, warm, well-perfused. No cyanosis. Cap refill <2 seconds. No peripheral edema. LOWER EXTREMITIES: 2+ pulses, warm, well-perfused. No calf tenderness. No peripheral edema. NEUROLOGICAL: Normal speech, gait not observed. PSYCH: Cooperative. Good eye contact. Appropriate mood and affect. SKIN: Warm, dry, normal turgor, no rashes or lesions noted. Vital Signs Temperature 98.5 F 08/13/18 14:00 Pulse Rate 78 08/13/18 14:00 Respiratory Rate 18 08/13/18 14:00 Blood Pressure 118/66 08/13/18 14:00 O2 Sat by Pulse Oximetry (%) 95 08/13/18 09:00 Lab Results WBC 9.0 K/mm3 (4.0-10.0) 08/12/18 14:55 RBC 4.42 M/mm3 (4.00-5.60) 08/12/18 14:55 Hgb 14.0 GM/dL (11.7-16.9) 08/12/18 14:55 Hct 41.3 % (35.4-49) 08/12/18 14:55 MCV 93.4 fl (80-96) 08/12/18 14:55 MCHC 33.9 g/dl (32.0-35.9) 08/12/18 14:55 RDW 14.2 % (11.9-15.9) 08/12/18 14:55 Plt Count 212 K/MM3 (134-434) D 08/12/18 14:55 Sodium 143 mmol/L (136-145) 08/12/18 14:55 Potassium 3.9 mmol/L (3.5-5.1) 08/12/18 14:55 Chloride 105 mmol/L (98-107) 08/12/18 14:55 Carbon Dioxide 30 mmol/L (21-32) 08/12/18 14:55 Anion Gap 8 MMOL/L (8-16) 08/12/18 14:55 BUN 28 mg/dL (7-18) H 08/12/18 14:55 Creatinine 1.4 mg/dL (0.7-1.3) H 08/12/18 14:55 Random Glucose 64 mg/dL (74-106) L D 08/12/18 14:55 Calcium 9.0 mg/dL (8.5-10.1) 08/12/18 14:55 Blood Type A POSITIVE 08/12/18 14:55 Antibody Screen Negative 08/12/18 14:55 INR 1.05 (0.83-1.09) 08/12/18 14:55 History reviewed and patient examined, Severe edema of both legs and feet with multiple blisters and ulcers on toes with bloody drainage. Limited arterial Duplex did not visualize tibial artery. Reduction of edema with leg elevation, KEE wraps, diuresis. Arterial Doppler to assess distal flow. <Vashti Vasquez - Last Filed: 08/13/18 18:30> - Consultation REQUESTING PROVIDER: CONSULT REQUEST: We have been asked to surgically evaluate this patient for bilateral toe drainage and discoloration. PCP:Selena Chao HISTORY OF PRESENT ILLNESS: The patient is a 83 yo male with a h/o CHF, chronic lymphedema, DN, and HTN. He came to the ER for evaluation of his lower extremitities. They have been getting progressively more swollen, tendner and draining bloody fluid. He denies any fevers. He states that his feet had been itchy and he was scratching them. The patient has a chronic history of lower ext leg swelling and wears compression stockings. He denies any ulcers to his legs. Recently it has been difficult to place the stocking devices and hasn't been wearing them as frequently PMHx: CHT, HTN, Asthma, COPD, BPH/renal stones, osteoarthritis(knees) PSHx: Home Medications Medication Instructions Recorded Furosemide [Lasix -] 20 mg PO TID 08/05/13 Simvastatin [Zocor -] 40 mg PO HS 08/05/13 Insulin (Levemir) [Levemir Flexpen 20 units SQ HS 01/14/17 -] Albuterol 2.5/Ipratropium 0.5 1 neb IH QID 06/27/17 [Duoneb -] Atenolol [Tenormin -] 25 mg PO DAILY 06/27/17 Glipizide/Metformin HCl 1 each PO BID 06/27/17 [Glipizide-Metformin 5-500 mg] Latanoprost 0.005% Eye Drops 1 drop OU HS 06/27/17 [Xalatan 0.005% Eye Drops -] Mirabegron [Myrbetriq] 25 mg PO DAILY 06/27/17 Potassium Chloride [Klor-Con M10] 10 meq PO DAILY 06/27/17 Betamethasone Valerate [Valisone] 1 applic TP ASDIR 08/12/18 Docusate Sodium [Colace] 100 mg PO DAILY 08/12/18 Donepezil HCl [Aricept] 5 mg PO DAILY 08/12/18 Empagliflozin [Jardiance] 25 mg PO DAILY 08/12/18 Fenofibrate Nanocrystallized 145 mg PO DAILY 08/12/18 [Tricor] Fluconazole [Diflucan -] 100 mg PO DAILY 08/12/18 Hydrochlorothiazide [Hctz -] 25 mg PO DAILY 08/12/18 Hydrocortisone 1% Cream [Hytone 1% 1 applic TP DAILY 08/12/18 Cream -] Lutein Extract/Zeaxanthin Ext 1 each PO DAILY 08/12/18 [Lutein 15 mg Softgel] Mupirocin Cream [Bactroban 2% 1 applic TP ASDIR 08/12/18 Cream -] Mv-Mn/Lutein/Zeax/Bilber/Hb277 1 each PO DAILY 08/12/18 [Macular Health Formula Capsule] Nystatin Cream [Mycostatin Cream -] 1 applic TP ASDIR 08/12/18 Omeprazole 20 mg PO DAILY 08/12/18 Oxybutynin Chloride [Ditropan Xl] 15 mg PO DAILY 08/12/18 Silver Sulfadiazine 1% Top Cr 1 applic TP ASDIR 08/12/18 [Silvadene -] Sitagliptin Phosphate [Januvia] 100 mg PO DAILY 08/12/18 Tamsulosin HCl [Flomax] 0.4 mg PO DAILY 08/12/18 Vit C/E/Zn/Coppr/Lutein/Zeaxan 1 each PO BID 08/12/18 [Preservision Areds 2 Softgel] Vit C/Vit E/Lutein/Min/[place]-3 1 each PO BID 08/12/18 [Ocuvite Softgel] Allergies Allergy/AdvReac Type Severity Reaction Status Date / Time Sulfa (Sulfonamide Allergy Mild Rash Verified 08/12/18 12:15 Antibiotics) REVIEW OF SYSTEMS: CONSTITUTIONAL: Absent: fever, chills CARDIOVASCULAR: Absent: chest pain, syncope RESPIRATORY: Present: SOB, GASTROINTESTINAL: Absent: abdominal pain, abdominal distensio Musculoskeletal: pain to bilateral lower extremitites PHYSICAL EXAM: GENERAL: Awake, alert, and fully oriented, in no acute distress LUNGS: Clear to auscultation bilat anteriorly. No wheezes, and no crackles. No accessory muscle use. HEART: Regular rate and rhythm. No murmurs ABDOMEN: Soft, distended LOWER EXTREMITIES: +1 pulses DP/PT bilaterally with doppler, feet warm b/l, well -perfused. Toenails are thickened. all toe are inflammed with serous drainage and edematous. 3rd left toe with blister. lower ext with venous stasis changes and dermatitis. NEUROLOGICAL: Normal speech, gait not observed. PSYCH: Cooperative. Good eye contact. Appropriate mood and affect. Vital Signs Temperature 97.9 F 08/13/18 09:02 Pulse Rate 78 08/13/18 09:02 Respiratory Rate 20 08/13/18 09:02 Blood Pressure 141/81 08/13/18 09:02 O2 Sat by Pulse Oximetry (%) 95 08/13/18 09:00 Lab Results WBC 9.0 K/mm3 (4.0-10.0) 08/12/18 14:55 RBC 4.42 M/mm3 (4.00-5.60) 08/12/18 14:55 Hgb 14.0 GM/dL (11.7-16.9) 08/12/18 14:55 Hct 41.3 % (35.4-49) 08/12/18 14:55 MCV 93.4 fl (80-96) 08/12/18 14:55 MCHC 33.9 g/dl (32.0-35.9) 08/12/18 14:55 RDW 14.2 % (11.9-15.9) 08/12/18 14:55 Plt Count 212 K/MM3 (134-434) D 08/12/18 14:55 Sodium 143 mmol/L (136-145) 08/12/18 14:55 Potassium 3.9 mmol/L (3.5-5.1) 08/12/18 14:55 Chloride 105 mmol/L (98-107) 08/12/18 14:55 Carbon Dioxide 30 mmol/L (21-32) 08/12/18 14:55 Anion Gap 8 MMOL/L (8-16) 08/12/18 14:55 BUN 28 mg/dL (7-18) H 08/12/18 14:55 Creatinine 1.4 mg/dL (0.7-1.3) H 08/12/18 14:55 Random Glucose 64 mg/dL (74-106) L D 08/12/18 14:55 Calcium 9.0 mg/dL (8.5-10.1) 08/12/18 14:55 Blood Type A POSITIVE 08/12/18 14:55 Antibody Screen Negative 08/12/18 14:55 INR 1.05 (0.83-1.09) 08/12/18 14:55 08/12 ultrasound: no evidence of DVT Duplex: arterial stuides: Right and left posterior tibial arterial with limited flow Problem List - Problems (1) Edema of both feet Assessment/Plan: Applied compression dressing with KEE wrap to bilateral lower extremities and strict leg elevation Recommend IV abx as per ID for cellulitis Local wound care with gent topical ointment to blister open areas/dry gauze between toes and kee wrap Code(s): R60.0 - LOCALIZED EDEMA (2) PAD (peripheral artery disease) Assessment/Plan: Artieral duplex limited/unable to visualize the posterior tibial srteries bilaterally Arterial doppler/PRVs ordered by Dr. An Care plan and medical evaluation D/w Ddr. Phelps Code(s): I73.9 - PERIPHERAL VASCULAR DISEASE, UNSPECIFIED
[2018-08-13] MEDS: FUROSEMIDE 40 MG/4 ML INJECTABLE VIAL IVPUSH SCH (13:56)
--- NOTE | 2018-08-13 15:49 | PN ---
Progress Note (short form) - Note Progress Note: ID Consult dictated Cellulitis LE bilaterally Chronic venous stasis dermatitis Empiric cefazolin
--- NOTE | 2018-08-13 16:22 | CONS ---
DATE OF CONSULTATION: DATE OF DICTATION: 08/13/2018 INFECTIOUS DISEASE CONSULTATION HISTORY OF PRESENT ILLNESS: The patient is an 83-year-old male evaluated for bilateral lower extremity cellulitis. History was obtained from the chart as he cannot give a reliable history. He was admitted to the hospital on August 12, 2018, with a 1-week history of worsening pain, erythema and swelling of the lower extremities bilaterally, as well as a bloody discharge from his toes. He presented to the emergency room. A Doppler examination was performed of the lower extremities and was negative for DVT. He was noted to have chronic venous stasis dermatitis, which is a long-standing condition. However, the legs appeared more erythematous and were warm to touch. He denies any traumatic injury. No associated fever or chills. PAST MEDICAL HISTORY: Positive for chronic lower extremity lymphedema, chronic lower extremity stasis dermatitis, diabetes mellitus, hypertension, hyperlipidemia, asthma, COPD, BPH, nephrolithiasis, osteoarthritis, spinal stenosis. ALLERGIES: SULFA. MEDICATIONS: Lasix, Zocor, Ditropan, Levemir, aspirin, Tenormin, Tricor, glipizide. SOCIAL HISTORY: Former smoker. LABORATORY DATA: White count 9.0, hematocrit 41.3, platelet count 212. BUN 28, creatinine 1.4. PHYSICAL EXAMINATION: General: He is an elderly male, out of bed to chair, obese. Vital Signs: Temperature 98.5, blood pressure 118/66, pulse 78 and regular, respiratory rate 18 per minute. HEENT: Sclerae anicteric. Cardiac: Heart sounds S1, S2. Lungs: Clear. Abdomen: Obese, soft, nontender. Extremities: Examination of the lower extremities shows bilateral lower extremity lymphedema with chronic venous stasis changes. There is superimposed erythema of the lower extremities and warmth, left greater than right. Bloody drainage noted from toes on the left foot. No gross purulence. IMPRESSION: 1. Bilateral lower extremity cellulitis. 2. Chronic venous stasis dermatitis. 3. Azotemia. 4. SULFA ALLERGY. PLAN: Empiric coverage of skin briana with cefazolin 1 gm IV piggyback every 8 hours in conjunction with elevation, diuretic therapy, vascular evaluation. I will follow. Thank you for the kind referral. RORO LANG M.D. [id number]
[2018-08-13] MEDS ORDERED: ceFAZolin SODIUM 1 GM VIAL ONE (16:33)
[2018-08-13] MEDS ORDERED: DEXTROSE 5%-WATER - 50 ML IVPB ONE (16:33)
[2018-08-13] MEDS: CEFAZOLIN 1 GM in DEXTROSE 5%-WATER - 50 ML IVPB SCH (16:34)
[2018-08-13] MEDS: OXYBUTYNIN CHLORIDE 5 MG TABLET PO SCH ×2 (17:19→21:38)
[2018-08-13] MEDS: INSULIN (LEVEMIR) 100 UNITS/ML UNITS SQ SCH (21:38)
[2018-08-13] MEDS: LATANOPROST 0.005% OPHTH SOLN 2.5ML BOTTLE OU SCH (21:39)
[2018-08-13] MEDS: ATORVASTATIN CA 20 MG TABLET (FP) PO SCH (21:39)
[2018-08-13] MEDS: GENTAMICIN SO4 0.1% TOPICAL OINTMENT 15 GM/TUBE TUBE TP SCH (22:30)
[2018-08-14] MEDS ORDERED: DEXTROSE 5%-WATER - 50 ML IVPB ONE ×3 (01:29→16:59)
[2018-08-14] MEDS ORDERED: ceFAZolin SODIUM 1 GM VIAL ONE ×3 (01:29→16:59)
[2018-08-14] MEDS: CEFAZOLIN 1 GM in DEXTROSE 5%-WATER - 50 ML IVPB SCH ×3 (01:37→17:21)
[2018-08-14] MEDS ORDERED: PT OWN MED DRAWER 7, Y5N ONE ×4 (05:51→22:11)
[2018-08-14] MEDS: FUROSEMIDE 40 MG/4 ML INJECTABLE VIAL IVPUSH SCH ×2 (05:54→13:55)
[2018-08-14] MEDS: OXYBUTYNIN CHLORIDE 5 MG TABLET PO SCH ×3 (05:55→21:35)
[2018-08-14] MEDS: metFORMIN HCL 500 MG TABLET (FP) PO SCH ×2 (06:00→17:20)
[2018-08-14] MEDS: glipiZIDE 5 MG TABLET (FP) PO SCH ×2 (06:00→17:20)
[2018-08-14 06:25] LABS: BASO % 0.7 % (0-2.0); EOS % 6.4 % (0-4.5); HEMATOCRIT 43.6 % (35.4-49); HEMOGLOBIN 14.1 GM/dL (11.7-16.9); LYMPH % 13.4 % (8-40); MCH 30.3 pg (25.7-33.7); MCHC 32.4 g/dl (32.0-35.9); MEAN CELL VOLUME 93.5 fl (80-96); MEAN PLT VOLUME 7.6 fl (7.5-11.1); MONO % 9.7 % (3.8-10.2); NEUT % 69.8 % (42.8-82.8); PLATELET COUNT 205 K/MM3 (134-434); RBC 4.67 M/mm3 (4.00-5.60); RDW 14.3 % (11.9-15.9); WHITE BLOOD COUNT 9.2 K/mm3 (4.0-10.0)
[2018-08-14 06:41] LABS: ALBUMIN 3.6 g/dl (3.4-5.0); ANION GAP 13 MMOL/L (8-16); BILIRUBIN,TOTAL 0.4 mg/dL (0.2-1.0); BLOOD UREA NITROGEN 32 mg/dL (7-18); CALCIUM 8.9 mg/dL (8.5-10.1); CHLORIDE 105 mmol/L (98-107); CO2 26 mmol/L (21-32); CREATININE 1.4 mg/dL (0.55-1.3); GLUCOSE,RANDOM 143 mg/dL (74-106); POTASSIUM 3.9 mmol/L (3.5-5.1); SGOT/AST 17 U/L (15-37); SGPT/ALT 22 U/L (13-61); SODIUM 144 mmol/L (136-145); TOT PROT 6.8 g/dl (6.4-8.2)
[2018-08-14 06:43] LABS: ALK PHOS 34 U/L (45-117)
[2018-08-14] MEDS: ALBUTEROL SO4 2.5/IPRATROPIUM 0.5 INH SOL 3 ML VIAL.NEB. NEB SCH ×4 (08:03→20:30)
[2018-08-14] MEDS ORDERED: ACETAMINOPHEN 325 MG TABLET (FP) PO PRN (08:55)
--- NOTE | 2018-08-14 08:58 | PN ---
Progress Note (short form) - Note Progress Note: no new complaints refused CT-can not lay flat on his back at present CBC, BMP 08/14/18 06:00 08/14/18 06:00 Vital Signs Period Temp Pulse Resp BP Sys/Enamorado Pulse Ox Last 24 Hr 97.9 F-98.6 F 74-80 18-21 118-150/57-81 95-97 s1s2 rrr lungs coarse BS bilaterally abd distended, obese pedal edema up to metatarsals with serous fluid oozing from toes warmth, erythema present claves are non-tender imp PVD cellulitis asthma chf IDDM obesity plan iv diuresis iv abx check CXR ap/lat since refuses chest CT for now monitor daily lytes keep legs elevated PT eval vascular studies as per dr. danielson DVT prophylaxis consults appreciated Problem List - Problems (1) PAD (peripheral artery disease) Code(s): I73.9 - PERIPHERAL VASCULAR DISEASE, UNSPECIFIED (2) PAD (peripheral artery disease) Code(s): I73.9 - PERIPHERAL VASCULAR DISEASE, UNSPECIFIED (3) Edema of both feet Code(s): R60.0 - LOCALIZED EDEMA (4) Stasis dermatitis of both legs Code(s): I87.2 - VENOUS INSUFFICIENCY (CHRONIC) (PERIPHERAL) (5) CHF (congestive heart failure) Code(s): I50.9 - HEART FAILURE, UNSPECIFIED (6) COPD (chronic obstructive pulmonary disease) Code(s): J44.9 - CHRONIC OBSTRUCTIVE PULMONARY DISEASE, UNSPECIFIED Qualifiers: COPD type: unspecified COPD Qualified Code(s): J44.9 - Chronic obstructive pulmonary disease, unspecified (7) Diabetes mellitus Code(s): E11.9 - TYPE 2 DIABETES MELLITUS WITHOUT COMPLICATIONS Qualifiers: Diabetes mellitus type: type 2 Diabetes mellitus care home insulin use: with care home use Diabetes mellitus complication status: with unspecified complications Qualified Code(s): E11.8 - Type 2 diabetes mellitus with unspecified complications (8) HTN (hypertension) Code(s): I10 - ESSENTIAL (PRIMARY) HYPERTENSION Qualifiers: Hypertension type: essential hypertension Qualified Code(s): I10 - Essential (primary) hypertension
--- NOTE | 2018-08-14 09:38 | PN ---
Progress Note (short form) - Note Progress Note: Pt seen and examined. States he is doing "okay" this morning. Has been ambulating around the room. Reports elevating b/l le's while in bed. Denies cp/ sob, n/v/d, calf pain. Vital Signs Temp 98.6 F 08/14/18 05:33 Pulse 80 08/14/18 05:33 Resp 20 08/14/18 05:33 BP 126/57 08/14/18 05:33 Pulse Ox 97 08/13/18 20:47 Intake & Output 08/13/18 08/13/18 08/14/18 11:59 23:59 11:59 Intake Total 500 500 250 Output Total 900 Balance -400 500 250 Weight 235 lb 6.4 oz 235 lb 6.4 oz 240 lb 6.4 oz Intake: IVPB 50 50 Oral 500 450 200 Output: Urine 900 Void 900 Other: Voiding Method Toilet Toilet Toilet # Unmeasured Voids Void 3 Bowel Movement No No No Height 5 ft 4 in Body Mass Index (BMI) 40.4 Weight Measurement Method Standing Scale Chair Scale CBC, BMP 08/14/18 06:00 08/14/18 06:00 Gen: Awake, alert, nad, sitting at edge of bed eating breakfast. Ext: B/L Les and feet with slight improvement in edema. b/l le's with circumferential hyperpigmentation and chronic venous stasis changes from ankles to mid calf. + hyperkeratosis over lateral portion of shins. Toes edematous with moderate serous drainage on 3rd toe b/l at nail beds. No purulent drainage expressed. No open ulcers. L great toe with small blister formation along lateral and distal portion of nail. Onycomycosis of toe nails. A/P: 83 y/o M w/ PMHx COPD, CHF, HTN, IDDM, chronic venous stasis disease, now a /w decompensated CHF, vascular consulted for management of venous stasis. -Venous duplex neg on admission for dvt, likely b/l PT occlusion -Exam slightly improved from yesterday, continued weeping from toes P: Dressing: Betadine solution to toes (paint betadine on toes, place 4x4 gauze between toes), wrap legs with chloé wraps Elevate b/l le's while at rest Will follow up PVRs above d/w attending Dr Phelps
[2018-08-14] MEDS: GENTAMICIN SO4 0.1% TOPICAL OINTMENT 15 GM/TUBE TUBE TP SCH (10:08)
[2018-08-14] MEDS: POTASSIUM CHLORIDE TABS 10 MEQ TABLET.ER (FP) PO SCH (10:11)
[2018-08-14] MEDS: FENOFIBRIC ACID 135 MG CAP PO SCH (10:11)
[2018-08-14] MEDS: BUDESONIDE/FORMETEROL FUMARATE 160/4.5 mcg INHALER IH SCH ×2 (10:12→21:35)
[2018-08-14] MEDS: ENOXAPARIN NA (PORCINE) 40 MG/0.4 ML DISP.SYRIN SQ SCH (10:12)
[2018-08-14] MEDS: ASPIRIN 81 MG CHEWABLE TABLETS PO SCH (10:12)
[2018-08-14] MEDS: ATENOLOL 25 MG TABLET (FP) PO SCH (10:14)
[2018-08-14] MEDS: INSULIN SLIDING SCALE (NOVOLOG) 1 VIAL SQ SCH ×3 (12:16→22:55)
[2018-08-14] MEDS: LATANOPROST 0.005% OPHTH SOLN 2.5ML BOTTLE OU SCH (21:34)
[2018-08-14] MEDS: ATORVASTATIN CA 20 MG TABLET (FP) PO SCH (21:37)
[2018-08-14] MEDS: INSULIN (LEVEMIR) 100 UNITS/ML UNITS SQ SCH (22:55)
[2018-08-15] MEDS ORDERED: DEXTROSE 5%-WATER - 50 ML IVPB ONE ×3 (00:41→17:03)
[2018-08-15] MEDS ORDERED: ceFAZolin SODIUM 1 GM VIAL ONE ×3 (00:41→17:03)
[2018-08-15] MEDS: CEFAZOLIN 1 GM in DEXTROSE 5%-WATER - 50 ML IVPB SCH ×3 (01:41→17:10)
[2018-08-15] MEDS: OXYBUTYNIN CHLORIDE 5 MG TABLET PO SCH ×3 (05:30→21:47)
[2018-08-15] MEDS: FUROSEMIDE 40 MG/4 ML INJECTABLE VIAL IVPUSH SCH ×2 (05:30→15:00)
[2018-08-15 07:24] LABS: BASO % 0.5 % (0-2.0); EOS % 7.6 % (0-4.5); HEMATOCRIT 42.8 % (35.4-49); HEMOGLOBIN 14.2 GM/dL (11.7-16.9); LYMPH % 20.2 % (8-40); MCH 30.9 pg (25.7-33.7); MEAN CELL VOLUME 93.6 fl (80-96); MEAN PLT VOLUME 7.5 fl (7.5-11.1); MONO % 10.5 % (3.8-10.2); NEUT % 61.2 % (42.8-82.8); PLATELET COUNT 208 K/MM3 (134-434); RBC 4.58 M/mm3 (4.00-5.60); RDW 14.6 % (11.9-15.9); WHITE BLOOD COUNT 7.5 K/mm3 (4.0-10.0)
[2018-08-15] MEDS: ALBUTEROL SO4 2.5/IPRATROPIUM 0.5 INH SOL 3 ML VIAL.NEB. NEB SCH ×4 (07:50→20:30)
[2018-08-15] MEDS: glipiZIDE 5 MG TABLET (FP) PO SCH ×2 (07:52→17:11)
[2018-08-15] MEDS: metFORMIN HCL 500 MG TABLET (FP) PO SCH ×2 (07:52→17:11)
[2018-08-15] MEDS: INSULIN SLIDING SCALE (NOVOLOG) 1 VIAL SQ SCH ×3 (07:52→16:22)
[2018-08-15 07:59] LABS: ALBUMIN 3.5 g/dl (3.4-5.0); ANION GAP 10 MMOL/L (8-16); BLOOD UREA NITROGEN 31 mg/dL (7-18); CHLORIDE 103 mmol/L (98-107); CO2 27 mmol/L (21-32); GLUCOSE,RANDOM 130 mg/dL (74-106); SODIUM 140 mmol/L (136-145)
[2018-08-15 08:04] LABS: ALK PHOS 36 U/L (45-117); BILIRUBIN,TOTAL 0.5 mg/dL (0.2-1.0); CREATININE 1.4 mg/dL (0.55-1.3); SGOT/AST 25 U/L (15-37); SGPT/ALT 21 U/L (13-61); TOT PROT 7.1 g/dl (6.4-8.2)
--- NOTE | 2018-08-15 08:22 | PN ---
Progress Note (short form) - Note Progress Note: CBC, BMP 08/15/18 06:00 08/15/18 06:00 Vital Signs Period Temp Pulse Resp BP Sys/Enamorado Pulse Ox Last 24 Hr 97.4 F-98.2 F 74-89 20-24 110-154/61-69 96-96 s1s2 rrr lungs coarse BS bilaterally abd distended, obese pedal edema up to metatarsals with serous fluid oozing from toes same as yesterday warmth, erythema present claves are non-tender CXR was ok vascular study results are pending imp PVD cellulitis asthma chf IDDM obesity plan continue present care iv diuresis iv abx iodine wraps monitor daily lytes keep legs elevated PT eval DVT prophylaxis consults appreciated Problem List - Problems (1) PAD (peripheral artery disease) Code(s): I73.9 - PERIPHERAL VASCULAR DISEASE, UNSPECIFIED (2) PAD (peripheral artery disease) Code(s): I73.9 - PERIPHERAL VASCULAR DISEASE, UNSPECIFIED (3) Edema of both feet Code(s): R60.0 - LOCALIZED EDEMA (4) Stasis dermatitis of both legs Code(s): I87.2 - VENOUS INSUFFICIENCY (CHRONIC) (PERIPHERAL) (5) CHF (congestive heart failure) Code(s): I50.9 - HEART FAILURE, UNSPECIFIED (6) COPD (chronic obstructive pulmonary disease) Code(s): J44.9 - CHRONIC OBSTRUCTIVE PULMONARY DISEASE, UNSPECIFIED Qualifiers: COPD type: unspecified COPD Qualified Code(s): J44.9 - Chronic obstructive pulmonary disease, unspecified (7) Diabetes mellitus Code(s): E11.9 - TYPE 2 DIABETES MELLITUS WITHOUT COMPLICATIONS Qualifiers: Diabetes mellitus type: type 2 Diabetes mellitus manager terminal insulin use: with manager terminal use Diabetes mellitus complication status: with unspecified complications Qualified Code(s): E11.8 - Type 2 diabetes mellitus with unspecified complications (8) HTN (hypertension) Code(s): I10 - ESSENTIAL (PRIMARY) HYPERTENSION Qualifiers: Hypertension type: essential hypertension Qualified Code(s): I10 - Essential (primary) hypertension
[2018-08-15] MEDS ORDERED: PT OWN MED DRAWER 7, Y5N ONE ×4 (09:15→22:26)
[2018-08-15] MEDS: BUDESONIDE/FORMETEROL FUMARATE 160/4.5 mcg INHALER IH SCH ×2 (09:28→21:45)
[2018-08-15] MEDS: ATENOLOL 25 MG TABLET (FP) PO SCH (09:28)
[2018-08-15] MEDS: ASPIRIN 81 MG CHEWABLE TABLETS PO SCH (09:28)
[2018-08-15] MEDS: FENOFIBRIC ACID 135 MG CAP PO SCH (09:28)
[2018-08-15] MEDS: POTASSIUM CHLORIDE TABS 10 MEQ TABLET.ER (FP) PO SCH (09:28)
[2018-08-15] MEDS: POLYETHYLENE GLYCOL 3350 119 GM BTL PO PRN (09:29)
[2018-08-15] MEDS: ENOXAPARIN NA (PORCINE) 40 MG/0.4 ML DISP.SYRIN SQ SCH (09:29)
--- NOTE | 2018-08-15 12:42 | PN ---
Progress Note (short form) - Note Progress Note: Complaining about pain in feet. Weight increased 6 pounds since admission Leg and foot edema unchanged. Toes edematous, serous drainage on socks. No erythema. Will need better diuresis and compression to reduce edema.
[2018-08-15] MEDS: DOCUSATE SODIUM 100 MG CAPSULE (FP) PO SCH ×2 (15:00→21:47)
[2018-08-15] MEDS: LATANOPROST 0.005% OPHTH SOLN 2.5ML BOTTLE OU SCH (21:46)
[2018-08-15] MEDS: ATORVASTATIN CA 20 MG TABLET (FP) PO SCH (21:47)
[2018-08-16] MEDS: INSULIN (LEVEMIR) 100 UNITS/ML UNITS SQ SCH ×2 (01:05→22:27)
[2018-08-16] MEDS ORDERED: ceFAZolin SODIUM 1 GM VIAL ONE ×3 (01:20→16:42)
[2018-08-16] MEDS ORDERED: DEXTROSE 5%-WATER - 50 ML IVPB ONE ×3 (01:20→16:42)
[2018-08-16] MEDS: INSULIN SLIDING SCALE (NOVOLOG) 1 VIAL SQ SCH ×5 (01:31→22:23)
[2018-08-16] MEDS: CEFAZOLIN 1 GM in DEXTROSE 5%-WATER - 50 ML IVPB SCH ×3 (01:31→17:57)
[2018-08-16] MEDS: DOCUSATE SODIUM 100 MG CAPSULE (FP) PO SCH ×3 (05:55→22:27)
[2018-08-16] MEDS: FUROSEMIDE 40 MG/4 ML INJECTABLE VIAL IVPUSH SCH ×2 (05:56→14:45)
[2018-08-16] MEDS: OXYBUTYNIN CHLORIDE 5 MG TABLET PO SCH ×3 (05:56→22:27)
[2018-08-16 07:05] LABS: BASO % 0.6 % (0-2.0); EOS % 8.9 % (0-4.5); HEMATOCRIT 44.9 % (35.4-49); LYMPH % 21.5 % (8-40); MCHC 33.3 g/dl (32.0-35.9); MEAN CELL VOLUME 93.1 fl (80-96); MEAN PLT VOLUME 7.7 fl (7.5-11.1); MONO % 10.5 % (3.8-10.2); NEUT % 58.5 % (42.8-82.8); PLATELET COUNT 218 K/MM3 (134-434); RBC 4.83 M/mm3 (4.00-5.60); RDW 14.3 % (11.9-15.9); WHITE BLOOD COUNT 7.6 K/mm3 (4.0-10.0)
[2018-08-16] MEDS: ALBUTEROL SO4 2.5/IPRATROPIUM 0.5 INH SOL 3 ML VIAL.NEB. NEB SCH ×4 (07:35→20:46)
[2018-08-16 07:44] LABS: ALBUMIN 3.8 g/dl (3.4-5.0); ALK PHOS 36 U/L (45-117); ANION GAP 11 MMOL/L (8-16); BILIRUBIN,TOTAL 0.5 mg/dL (0.2-1.0); BLOOD UREA NITROGEN 33 mg/dL (7-18); CALCIUM 9.4 mg/dL (8.5-10.1); CHLORIDE 104 mmol/L (98-107); CO2 26 mmol/L (21-32); CREATININE 1.4 mg/dL (0.55-1.3); GLUCOSE,RANDOM 126 mg/dL (74-106); POTASSIUM 4.2 mmol/L (3.5-5.1); SGOT/AST 24 U/L (15-37); SGPT/ALT 21 U/L (13-61); SODIUM 141 mmol/L (136-145); TOT PROT 7.2 g/dl (6.4-8.2)
--- NOTE | 2018-08-16 07:44 | PN ---
Progress Note (short form) - Note Progress Note: CBC, BMP 08/16/18 06:29 Vital Signs Period Temp Pulse Resp BP Sys/Enamorado Pulse Ox Last 24 Hr 97.6 F-98.4 F 72-75 18-20 128-137/73-78 96-96 s1s2 rrr lungs coarse BS bilaterally abd distended, obese pedal edema up to metatarsals with serous fluid weeping from toes warmth, erythema present claves are non-tender vascular study results are pending no BM since admission imp PVD cellulitis asthma chf chronic diastolic IDDM obesity plan continue present care iv diuresis add zaroxolyn iv abx iodine wraps monitor daily lytes keep legs elevated PT eval DVT prophylaxis laxatives consults appreciated Problem List - Problems (1) PAD (peripheral artery disease) Code(s): I73.9 - PERIPHERAL VASCULAR DISEASE, UNSPECIFIED (2) PAD (peripheral artery disease) Code(s): I73.9 - PERIPHERAL VASCULAR DISEASE, UNSPECIFIED (3) Edema of both feet Code(s): R60.0 - LOCALIZED EDEMA (4) Stasis dermatitis of both legs Code(s): I87.2 - VENOUS INSUFFICIENCY (CHRONIC) (PERIPHERAL) (5) CHF (congestive heart failure) Code(s): I50.9 - HEART FAILURE, UNSPECIFIED (6) COPD (chronic obstructive pulmonary disease) Code(s): J44.9 - CHRONIC OBSTRUCTIVE PULMONARY DISEASE, UNSPECIFIED Qualifiers: COPD type: unspecified COPD Qualified Code(s): J44.9 - Chronic obstructive pulmonary disease, unspecified (7) Diabetes mellitus Code(s): E11.9 - TYPE 2 DIABETES MELLITUS WITHOUT COMPLICATIONS Qualifiers: Diabetes mellitus type: type 2 Diabetes mellitus chcf insulin use: with dupligraph operator use Diabetes mellitus complication status: with unspecified complications Qualified Code(s): E11.8 - Type 2 diabetes mellitus with unspecified complications (8) HTN (hypertension) Code(s): I10 - ESSENTIAL (PRIMARY) HYPERTENSION Qualifiers: Hypertension type: essential hypertension Qualified Code(s): I10 - Essential (primary) hypertension
[2018-08-16] MEDS: glipiZIDE 5 MG TABLET (FP) PO SCH ×2 (08:07→17:28)
[2018-08-16] MEDS: metFORMIN HCL 500 MG TABLET (FP) PO SCH ×2 (08:08→17:27)
[2018-08-16] MEDS ORDERED: MAGNESIUM HYDROX 2400MG/30ML ORAL SUSPENSION 30 ML CUP PO ONE (08:45)
[2018-08-16] MEDS: FENOFIBRIC ACID 135 MG CAP PO SCH (10:07)
[2018-08-16] MEDS: ASPIRIN 81 MG CHEWABLE TABLETS PO SCH (10:07)
[2018-08-16] MEDS: POTASSIUM CHLORIDE TABS 10 MEQ TABLET.ER (FP) PO SCH (10:07)
[2018-08-16] MEDS: ATENOLOL 25 MG TABLET (FP) PO SCH (10:07)
[2018-08-16] MEDS: diphenhydrAMINE HCL 25 MG CAPSULE (FP) PO PRN ×2 (10:07→14:44)
[2018-08-16] MEDS: BUDESONIDE/FORMETEROL FUMARATE 160/4.5 mcg INHALER IH SCH ×2 (10:08→22:28)
[2018-08-16] MEDS: ENOXAPARIN NA (PORCINE) 40 MG/0.4 ML DISP.SYRIN SQ SCH (10:09)
[2018-08-16] MEDS: METOLAZONE 5 MG TABLET PO SCH (13:49)
[2018-08-16] MEDS: POLYETHYLENE GLYCOL 3350 119 GM BTL PO PRN (14:45)
[2018-08-16] MEDS ORDERED: PT OWN MED DRAWER 7, Y5N ONE ×2 (18:04→21:04)
[2018-08-16] MEDS: ATORVASTATIN CA 20 MG TABLET (FP) PO SCH (22:27)
[2018-08-16] MEDS: LATANOPROST 0.005% OPHTH SOLN 2.5ML BOTTLE OU SCH (22:28)
[2018-08-17] MEDS ORDERED: ceFAZolin SODIUM 1 GM VIAL ONE ×3 (00:50→17:09)
[2018-08-17] MEDS ORDERED: DEXTROSE 5%-WATER - 50 ML IVPB ONE ×3 (00:50→17:09)
[2018-08-17] MEDS: CEFAZOLIN 1 GM in DEXTROSE 5%-WATER - 50 ML IVPB SCH ×3 (01:13→17:17)
[2018-08-17] MEDS: DOCUSATE SODIUM 100 MG CAPSULE (FP) PO SCH ×3 (06:15→21:14)
[2018-08-17] MEDS: glipiZIDE 5 MG TABLET (FP) PO SCH ×2 (06:15→16:33)
[2018-08-17] MEDS: metFORMIN HCL 500 MG TABLET (FP) PO SCH ×2 (06:16→16:32)
[2018-08-17] MEDS: FUROSEMIDE 40 MG/4 ML INJECTABLE VIAL IVPUSH SCH ×2 (06:17→14:30)
[2018-08-17] MEDS: INSULIN SLIDING SCALE (NOVOLOG) 1 VIAL SQ SCH ×4 (06:17→21:16)
[2018-08-17] MEDS: OXYBUTYNIN CHLORIDE 5 MG TABLET PO SCH ×3 (06:17→21:14)
[2018-08-17 06:38] LABS: BASO % 0.8 % (0-2.0); EOS % 8.6 % (0-4.5); HEMATOCRIT 41.8 % (35.4-49); HEMOGLOBIN 13.9 GM/dL (11.7-16.9); LYMPH % 18.7 % (8-40); MCH 30.8 pg (25.7-33.7); MCHC 33.2 g/dl (32.0-35.9); MEAN CELL VOLUME 92.7 fl (80-96); MEAN PLT VOLUME 7.4 fl (7.5-11.1); MONO % 11.5 % (3.8-10.2); NEUT % 60.4 % (42.8-82.8); PLATELET COUNT 196 K/MM3 (134-434); RBC 4.51 M/mm3 (4.00-5.60); RDW 14.7 % (11.9-15.9); WHITE BLOOD COUNT 7.2 K/mm3 (4.0-10.0)
[2018-08-17 07:07] LABS: ALBUMIN 3.5 g/dl (3.4-5.0); ANION GAP 13 MMOL/L (8-16); BLOOD UREA NITROGEN 37 mg/dL (7-18); CALCIUM 9.5 mg/dL (8.5-10.1); CHLORIDE 101 mmol/L (98-107); CO2 28 mmol/L (21-32); CREATININE 1.5 mg/dL (0.55-1.3); GLUCOSE,RANDOM 116 mg/dL (74-106); POTASSIUM 3.7 mmol/L (3.5-5.1); SGOT/AST 26 U/L (15-37); SGPT/ALT 23 U/L (13-61); SODIUM 142 mmol/L (136-145)
[2018-08-17 07:09] LABS: ALK PHOS 33 U/L (45-117); BILIRUBIN,TOTAL 0.5 mg/dL (0.2-1.0); TOT PROT 6.7 g/dl (6.4-8.2)
[2018-08-17] MEDS: ALBUTEROL SO4 2.5/IPRATROPIUM 0.5 INH SOL 3 ML VIAL.NEB. NEB SCH ×4 (07:31→19:13)
[2018-08-17] MEDS ORDERED: PT OWN MED DRAWER 7, Y5N ONE ×3 (07:32→21:09)
--- NOTE | 2018-08-17 08:48 | PN ---
Progress Note (short form) - Note Progress Note: CBC, BMP 08/17/18 06:00 08/17/18 06:00 Vital Signs Period Temp Pulse Resp BP Sys/Enamorado Pulse Ox Last 24 Hr 97.8 F-98.5 F 69-88 18-20 110-137/49-91 96-97 s1s2 rrr lungs coarse BS bilaterally abd distended, obese pedal edema up to metatarsals with serous fluid weeping from toes little better warmth, erythema better claves are non-tender vascular study results are pending small bm yesterday imp PVD cellulitis edema asthma chf chronic diastolic IDDM obesity has lost ~10 pounds since yesterday, ?accurate plan continue present care iv diuresis po zaroxolyn iv abx iodine wraps teds monitor daily lytes keep legs elevated PT eval DVT prophylaxis laxatives dc planning in am consults appreciated Problem List - Problems (1) PAD (peripheral artery disease) Code(s): I73.9 - PERIPHERAL VASCULAR DISEASE, UNSPECIFIED (2) PAD (peripheral artery disease) Code(s): I73.9 - PERIPHERAL VASCULAR DISEASE, UNSPECIFIED (3) Edema of both feet Code(s): R60.0 - LOCALIZED EDEMA (4) Stasis dermatitis of both legs Code(s): I87.2 - VENOUS INSUFFICIENCY (CHRONIC) (PERIPHERAL) (5) CHF (congestive heart failure) Code(s): I50.9 - HEART FAILURE, UNSPECIFIED (6) COPD (chronic obstructive pulmonary disease) Code(s): J44.9 - CHRONIC OBSTRUCTIVE PULMONARY DISEASE, UNSPECIFIED Qualifiers: COPD type: unspecified COPD Qualified Code(s): J44.9 - Chronic obstructive pulmonary disease, unspecified (7) Diabetes mellitus Code(s): E11.9 - TYPE 2 DIABETES MELLITUS WITHOUT COMPLICATIONS Qualifiers: Diabetes mellitus type: type 2 Diabetes mellitus correction insulin use: with superintendent container terminal use Diabetes mellitus complication status: with unspecified complications Qualified Code(s): E11.8 - Type 2 diabetes mellitus with unspecified complications (8) HTN (hypertension) Code(s): I10 - ESSENTIAL (PRIMARY) HYPERTENSION Qualifiers: Hypertension type: essential hypertension Qualified Code(s): I10 - Essential (primary) hypertension
[2018-08-17] MEDS: BUDESONIDE/FORMETEROL FUMARATE 160/4.5 mcg INHALER IH SCH ×2 (10:30→21:13)
[2018-08-17] MEDS: ENOXAPARIN NA (PORCINE) 40 MG/0.4 ML DISP.SYRIN SQ SCH (10:40)
[2018-08-17] MEDS: ATENOLOL 25 MG TABLET (FP) PO SCH (10:40)
[2018-08-17] MEDS: ASPIRIN 81 MG CHEWABLE TABLETS PO SCH (10:40)
[2018-08-17] MEDS: POTASSIUM CHLORIDE TABS 10 MEQ TABLET.ER (FP) PO SCH (10:49)
[2018-08-17] MEDS: FENOFIBRIC ACID 135 MG CAP PO SCH (10:50)
[2018-08-17 13:00] VITALS: BMI 42.3
[2018-08-17] MEDS: METOLAZONE 5 MG TABLET PO SCH (14:00)
[2018-08-17] MEDS ORDERED: INSULIN (NOVOLOG) ASPART 100 UNITS/ML 10ML VIAL ONE (21:08)
[2018-08-17] MEDS: ATORVASTATIN CA 20 MG TABLET (FP) PO SCH (21:14)
[2018-08-17] MEDS: LATANOPROST 0.005% OPHTH SOLN 2.5ML BOTTLE OU SCH (21:15)
[2018-08-17] MEDS: INSULIN (LEVEMIR) 100 UNITS/ML UNITS SQ SCH (21:17)
[2018-08-18] MEDS ORDERED: DEXTROSE 5%-WATER - 50 ML IVPB ONE ×3 (01:20→17:07)
[2018-08-18] MEDS ORDERED: ceFAZolin SODIUM 1 GM VIAL ONE ×3 (01:20→17:07)
[2018-08-18] MEDS: diphenhydrAMINE HCL 25 MG CAPSULE (FP) PO PRN ×3 (01:27→22:42)
[2018-08-18] MEDS: CEFAZOLIN 1 GM in DEXTROSE 5%-WATER - 50 ML IVPB SCH ×3 (01:28→17:09)
[2018-08-18] MEDS: DOCUSATE SODIUM 100 MG CAPSULE (FP) PO SCH ×3 (06:09→21:54)
[2018-08-18] MEDS: metFORMIN HCL 500 MG TABLET (FP) PO SCH ×2 (06:09→17:09)
[2018-08-18] MEDS: OXYBUTYNIN CHLORIDE 5 MG TABLET PO SCH ×3 (06:09→21:54)
[2018-08-18] MEDS: glipiZIDE 5 MG TABLET (FP) PO SCH ×2 (06:09→17:09)
[2018-08-18] MEDS: FUROSEMIDE 40 MG/4 ML INJECTABLE VIAL IVPUSH SCH ×2 (06:09→15:01)
[2018-08-18] MEDS: INSULIN SLIDING SCALE (NOVOLOG) 1 VIAL SQ SCH ×4 (06:09→21:53)
[2018-08-18] MEDS: ALBUTEROL SO4 2.5/IPRATROPIUM 0.5 INH SOL 3 ML VIAL.NEB. NEB SCH ×4 (08:00→20:41)
--- NOTE | 2018-08-18 09:01 | PN ---
Progress Note (short form) - Note Progress Note: Complains abouth itching in feet and legs. Drainage from toes improved with Alginate bandages. Weight has not decreased since admission despite use of IV diuretics. Increase 0.5 lbs since yesterday. Will add Steroid cream to control itch.
[2018-08-18] MEDS: POTASSIUM CHLORIDE TABS 10 MEQ TABLET.ER (FP) PO SCH (10:16)
[2018-08-18] MEDS: ENOXAPARIN NA (PORCINE) 40 MG/0.4 ML DISP.SYRIN SQ SCH (10:16)
[2018-08-18] MEDS: ATENOLOL 25 MG TABLET (FP) PO SCH (10:16)
[2018-08-18] MEDS: ASPIRIN 81 MG CHEWABLE TABLETS PO SCH (10:16)
[2018-08-18] MEDS: FENOFIBRIC ACID 135 MG CAP PO SCH (10:17)
[2018-08-18] MEDS: BUDESONIDE/FORMETEROL FUMARATE 160/4.5 mcg INHALER IH SCH ×2 (11:17→21:54)
[2018-08-18] MEDS ORDERED: INSULIN (NOVOLOG) ASPART 100 UNITS/ML 10ML VIAL ONE (11:34)
--- NOTE | 2018-08-18 12:24 | PN ---
Progress Note (short form) - Note Progress Note: Vital Signs Period Temp Pulse Resp BP Sys/[place] Pulse Ox Last 24 Hr 97.4 F-98.7 F 67-74 18-19 115-150/59-74 97-97 s1s2 rrr lungs coarse BS bilaterally abd distended, obese pedal edema up to metatarsals with serous fluid weeping from toes little better warmth, erythema better claves are non-tender pruritic papulomacular rash on both legs vascular studies reviewed imp PVD cellulitis edema asthma chf chronic diastolic IDDM obesity same weight again today plan increase iv diuresis po zaroxolyn iv abx iodine wraps teds monitor daily lytes keep legs elevated PT eval DVT prophylaxis laxatives dc planning consults appreciated Problem List - Problems (1) PAD (peripheral artery disease) Code(s): I73.9 - PERIPHERAL VASCULAR DISEASE, UNSPECIFIED (2) PAD (peripheral artery disease) Code(s): I73.9 - PERIPHERAL VASCULAR DISEASE, UNSPECIFIED (3) Edema of both feet Code(s): R60.0 - LOCALIZED EDEMA (4) Stasis dermatitis of both legs Code(s): I87.2 - VENOUS INSUFFICIENCY (CHRONIC) (PERIPHERAL) (5) CHF (congestive heart failure) Code(s): I50.9 - HEART FAILURE, UNSPECIFIED (6) COPD (chronic obstructive pulmonary disease) Code(s): J44.9 - CHRONIC OBSTRUCTIVE PULMONARY DISEASE, UNSPECIFIED Qualifiers: COPD type: unspecified COPD Qualified Code(s): J44.9 - Chronic obstructive pulmonary disease, unspecified (7) Diabetes mellitus Code(s): E11.9 - TYPE 2 DIABETES MELLITUS WITHOUT COMPLICATIONS Qualifiers: Diabetes mellitus type: type 2 Diabetes mellitus half-way insulin use: with half-way use Diabetes mellitus complication status: with unspecified complications Qualified Code(s): E11.8 - Type 2 diabetes mellitus with unspecified complications (8) HTN (hypertension) Code(s): I10 - ESSENTIAL (PRIMARY) HYPERTENSION Qualifiers: Hypertension type: essential hypertension Qualified Code(s): I10 - Essential (primary) hypertension
[2018-08-18] MEDS: FLUOCINONIDE 0.05% CREAM (15 GM TUBE) TP SCH ×2 (12:56→21:49)
[2018-08-18] MEDS: POLYETHYLENE GLYCOL 3350 119 GM BTL PO PRN (12:57)
[2018-08-18] MEDS: METOLAZONE 5 MG TABLET PO SCH ×2 (12:58→14:22)
[2018-08-18] MEDS: ATORVASTATIN CA 20 MG TABLET (FP) PO SCH (21:54)
[2018-08-18] MEDS: LATANOPROST 0.005% OPHTH SOLN 2.5ML BOTTLE OU SCH (21:55)
[2018-08-18] MEDS: INSULIN (LEVEMIR) 100 UNITS/ML UNITS SQ SCH (21:55)
[2018-08-19] MEDS ORDERED: ceFAZolin SODIUM 1 GM VIAL ONE (01:09)
[2018-08-19] MEDS ORDERED: DEXTROSE 5%-WATER - 50 ML IVPB ONE (01:10)
[2018-08-19] MEDS: CEFAZOLIN 1 GM in DEXTROSE 5%-WATER - 50 ML IVPB SCH ×2 (01:25→11:00)
[2018-08-19] MEDS: OXYBUTYNIN CHLORIDE 5 MG TABLET PO SCH ×3 (06:30→21:34)
[2018-08-19] MEDS: DOCUSATE SODIUM 100 MG CAPSULE (FP) PO SCH ×3 (06:30→21:34)
[2018-08-19] MEDS: INSULIN SLIDING SCALE (NOVOLOG) 1 VIAL SQ SCH ×4 (06:31→21:09)
[2018-08-19] MEDS: FUROSEMIDE 40 MG/4 ML INJECTABLE VIAL IVPUSH SCH ×2 (06:32→13:26)
[2018-08-19 06:36] LABS: BASO % 0.7 % (0-2.0); EOS % 11.1 % (0-4.5); HEMATOCRIT 41.4 % (35.4-49); HEMOGLOBIN 13.8 GM/dL (11.7-16.9); LYMPH % 19.5 % (8-40); MCH 30.8 pg (25.7-33.7); MCHC 33.3 g/dl (32.0-35.9); MEAN CELL VOLUME 92.7 fl (80-96); MEAN PLT VOLUME 7.7 fl (7.5-11.1); MONO % 12.4 % (3.8-10.2); NEUT % 56.3 % (42.8-82.8); PLATELET COUNT 192 K/MM3 (134-434); RBC 4.47 M/mm3 (4.00-5.60); RDW 13.8 % (11.9-15.9); WHITE BLOOD COUNT 7.6 K/mm3 (4.0-10.0)
[2018-08-19] MEDS: glipiZIDE 5 MG TABLET (FP) PO SCH ×2 (06:40→17:14)
[2018-08-19] MEDS: metFORMIN HCL 500 MG TABLET (FP) PO SCH ×2 (06:40→17:14)
[2018-08-19] MEDS: ALBUTEROL SO4 2.5/IPRATROPIUM 0.5 INH SOL 3 ML VIAL.NEB. NEB SCH ×4 (07:29→20:20)
--- NOTE | 2018-08-19 08:30 | PN ---
Progress Note (short form) - Note Progress Note: 08/19/18 06:00 Vital Signs Period Temp Pulse Resp BP Sys/[place]ado Pulse Ox Last 24 Hr 97.4 F-98.7 F 67-74 18-19 115-150/59-74 97-97 s1s2 rrr lungs coarse BS bilaterally abd distended, obese pedal edema better serous fluid weeping from toes little better warmth, erythema better claves are non-tender pruritic papulomacular rash on both legs vascular studies reviewed imp PVD cellulitis edema asthma chf chronic diastolic IDDM obesity loosing weight plan iv diuresis-monitor lytes po zaroxolyn iv abx iodine wraps teds monitor daily lytes keep legs elevated PT eval DVT prophylaxis laxatives topical steroid cream to rash dc planning with [facility] for wound care and PT ID f/up for need of abx? consults appreciated Problem List - Problems (1) PAD (peripheral artery disease) Code(s): I73.9 - PERIPHERAL VASCULAR DISEASE, UNSPECIFIED (2) PAD (peripheral artery disease) Code(s): I73.9 - PERIPHERAL VASCULAR DISEASE, UNSPECIFIED (3) Edema of both feet Code(s): R60.0 - LOCALIZED EDEMA (4) Stasis dermatitis of both legs Code(s): I87.2 - VENOUS INSUFFICIENCY (CHRONIC) (PERIPHERAL) (5) CHF (congestive heart failure) Code(s): I50.9 - HEART FAILURE, UNSPECIFIED (6) COPD (chronic obstructive pulmonary disease) Code(s): J44.9 - CHRONIC OBSTRUCTIVE PULMONARY DISEASE, UNSPECIFIED Qualifiers: COPD type: unspecified COPD Qualified Code(s): J44.9 - Chronic obstructive pulmonary disease, unspecified (7) Diabetes mellitus Code(s): E11.9 - TYPE 2 DIABETES MELLITUS WITHOUT COMPLICATIONS Qualifiers: Diabetes mellitus type: type 2 Diabetes mellitus 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
--- NOTE | 2018-08-19 09:19 | PN ---
Progress Note (short form) - Note Progress Note: Pt seen and examined. States he is feeling better today. Has been oob around room, offers no other complaints. Denies cp/sob. Vital Signs Temp 98.7 F 08/19/18 06:14 Pulse 67 08/19/18 06:14 Resp 18 08/19/18 06:14 BP 124/62 08/19/18 06:14 Pulse Ox 97 08/18/18 21:00 Intake & Output 08/18/18 08/18/18 08/19/18 11:59 23:59 11:59 Intake Total 240 290 Balance 240 290 Weight 247 lb 236 lb 6 oz Intake: IVPB 50 Oral 240 240 Other: Voiding Method Toilet Toilet # Unmeasured Voids Void 2 2 3 Bowel Movement No Weight Measurement Method Standing Scale Standing Scale CBC, BMP 08/19/18 06:00 Gen: awake, alert, nad. Sitting in chair Ext: B/l le's with chloé wraps from ankle to knee, b/l feet with Alginate dressings in place over toes, covered with kerlix. Dressings with mild-moderate saturation at toes. Dressings removed b/l, toes with maceration over anterior aspects. Underlying tissue granulated with no purulent drainage. No erythema. Edema improved overall. + rash over medial aspect of calf, extending upto thigh. A/P: 83 y/o M w/ PMHx COPD, CHF, HTN, IDDM, chronic venous stasis disease, now a /w decompensated CHF, vascular consulted for management of venous stasis. -Venous duplex neg on admission for dvt, likely b/l PT occlusion -Arterial Duplex (08/14/18) with triphasic waveforms in femoral/sfa, monophasic PT/Dp b/l, AMNA .97 on L, .67 on R -Drainage from toes improved slightly from exam late last week Continue Ca Alginate dressings to toes, wrap with kerlix, chloé wraps to calf Continue b/l elevation while at rest Cortisone cream to leg rash
[2018-08-19 09:21] LABS: POTASSIUM 3.4 mmol/L (3.5-5.1)
[2018-08-19 10:13] LABS: ALBUMIN 3.4 g/dl (3.4-5.0); ANION GAP 13 MMOL/L (8-16); BLOOD UREA NITROGEN 50 mg/dL (7-18); CALCIUM 9.5 mg/dL (8.5-10.1); CHLORIDE 97 mmol/L (98-107); CO2 29 mmol/L (21-32); CREATININE 1.8 mg/dL (0.55-1.3); GLUCOSE,RANDOM 134 mg/dL (74-106); SGOT/AST 27 U/L (15-37); SODIUM 139 mmol/L (136-145)
[2018-08-19 10:36] LABS: ALK PHOS 37 U/L (45-117); BILIRUBIN,TOTAL 0.3 mg/dL (0.2-1); SGPT/ALT 30 U/L (13-61); TOT PROT 6.8 g/dl (6.4-8.2)
--- NOTE | 2018-08-19 10:58 | PN ---
Progress Note, Physician History of Present Illness: Awake, alert in bed C/O pruritis LE bilaterally Afebrile WBC WNL - Current Medication List Current Medications: Active Medications Acetaminophen (Tylenol -) 650 mg PO Q6H PRN PRN Reason: PAIN OR FEVER Albuterol/Ipratropium (Duoneb -) 1 amp NEB RQID [facility] Last Admin: 08/19/18 07:29 Dose: 1 amp Aspirin (Asa -) 81 mg PO DAILY [facility] Last Admin: 08/18/18 10:16 Dose: 81 mg Atenolol (Tenormin -) 25 mg PO DAILY [facility] Last Admin: 08/18/18 10:16 Dose: 25 mg Atorvastatin Calcium (Lipitor -) 20 mg PO HS [facility] Last Admin: 08/18/18 21:54 Dose: 20 mg Budesonide/Formoterol Fumarate (Symbicort 160/4.5mcg -) 2 puff IH BID [facility] Last Admin: 08/18/18 21:54 Dose: 2 puff Diphenhydramine HCl (Benadryl -) 25 mg PO TID PRN PRN Reason: FOR ITCHING Last Admin: 08/18/18 22:42 Dose: 25 mg Docusate Sodium (Colace -) 100 mg PO TID [facility] Last Admin: 08/19/18 06:30 Dose: 100 mg Enoxaparin Sodium (Lovenox -) 40 mg SQ DAILY [facility] Last Admin: 08/18/18 10:16 Dose: 40 mg Fenofibric Acid (Trilipix -) 135 mg PO DAILY [facility] Last Admin: 08/18/18 10:17 Dose: 135 mg Fluocinonide (Lidex 0.05% Cream -) 1 applic TP BID [facility] Last Admin: 08/18/18 21:49 Dose: 1 applic Furosemide (Lasix Injection -) 80 mg IVPUSH BID@0600,1400 [facility] Last Admin: 08/19/18 06:32 Dose: 80 mg Glipizide (Glucotrol -) 5 mg PO BIDAC [facility] Last Admin: 08/19/18 06:40 Dose: 5 mg Cefazolin Sodium 1 gm/ (Dextrose) 50 mls @ 100 mls/hr IVPB Q8H-IV [facility] Last Admin: 08/19/18 01:25 Dose: 100 mls/hr Insulin Aspart (Novolog Vial Sliding Scale -) 1 vial SQ ACHS [facility]; Protocol Last Admin: 08/19/18 06:31 Dose: Not Given Insulin Detemir (Levemir Vial) 10 units SQ HS [facility] Last Admin: 08/18/18 21:55 Dose: 10 units Latanoprost (Xalatan 0.005% Eye Drops -) 1 drop OU HS [facility] Last Admin: 08/18/18 21:55 Dose: 1 drop Metformin HCl (Glucophage -) 500 mg PO BIDAC [facility] Last Admin: 08/19/18 06:40 Dose: 500 mg Metolazone (Zaroxolyn -) 5 mg PO DAILY@1300 [facility] Last Admin: 08/18/18 14:22 Dose: 5 mg Non-Formulary Medication (Mirabegron [Myrbetriq]) 50 mg PO DAILY [facility] Oxybutynin Chloride (Ditropan -) 10 mg PO TID [facility] Last Admin: 08/19/18 06:30 Dose: 10 mg Polyethylene Glycol (Miralax (For Daily Use) -) 17 gm PO DAILY PRN PRN Reason: CONSTIPATION Last Admin: 08/18/18 12:57 Dose: 17 grams Potassium Chloride (K-Dur -) 30 meq PO DAILY [facility] Last Admin: 08/18/18 10:16 Dose: 30 meq Zinc Acetate/Diphenhydramine (Benadryl 2% Cream) 1 applic TP BID [facility] - Objective Vital Signs: Vital Signs Temperature 98.7 F 08/19/18 06:14 Pulse Rate 67 08/19/18 06:14 Respiratory Rate 18 08/19/18 06:14 Blood Pressure 124/62 08/19/18 06:14 O2 Sat by Pulse Oximetry (%) 97 08/18/18 21:00 Constitutional: Yes: No Distress Eyes: Yes: Conjunctiva Clear Cardiovascular: Yes: Regular Rate and Rhythm, S1, S2 Respiratory: Yes: CTA Bilaterally Gastrointestinal: Yes: Normal Bowel Sounds, Soft. No: Tenderness Extremities: Yes: Other (erythema / warmth LE almost completely resolved + chronic venous stasis + swelling of toes + dry ulcer, dorsum R 2nd toe) Labs: CBC, BMP 08/19/18 06:00 08/19/18 06:00 INR, PTT INR 1.05 (0.83-1.09) 08/12/18 14:55 Assessment/Plan Cellulitis LE bilaterally almost completely resolved Chronic venous stasis dermatitis LE Azotemia Substitute po keflex 500mg po bid x 7d
[2018-08-19] MEDS: BUDESONIDE/FORMETEROL FUMARATE 160/4.5 mcg INHALER IH SCH ×2 (11:00→21:33)
[2018-08-19] MEDS: ATENOLOL 25 MG TABLET (FP) PO SCH (11:00)
[2018-08-19] MEDS: ASPIRIN 81 MG CHEWABLE TABLETS PO SCH (11:00)
[2018-08-19] MEDS: FENOFIBRIC ACID 135 MG CAP PO SCH (11:00)
[2018-08-19] MEDS ORDERED: PT OWN MED DRAWER 7, Y5N ONE ×4 (11:47→23:03)
[2018-08-19] MEDS: ENOXAPARIN NA (PORCINE) 40 MG/0.4 ML DISP.SYRIN SQ SCH (11:51)
[2018-08-19] MEDS: POTASSIUM CHLORIDE TABS 10 MEQ TABLET.ER (FP) PO SCH (11:56)
[2018-08-19] MEDS: CEPHALEXIN MONOHYDRATE 500 MG CAPSULE (UD) PO SCH ×2 (12:00→21:34)
[2018-08-19] MEDS: FLUOCINONIDE 0.05% CREAM (15 GM TUBE) TP SCH ×2 (12:47→21:33)
[2018-08-19] MEDS: METOLAZONE 5 MG TABLET PO SCH (12:47)
[2018-08-19] MEDS: diphenhydrAMINE HCL 25 MG CAPSULE (FP) PO PRN (18:19)
[2018-08-19] MEDS: INSULIN (LEVEMIR) 100 UNITS/ML UNITS SQ SCH (21:33)
[2018-08-19] MEDS: ATORVASTATIN CA 20 MG TABLET (FP) PO SCH (21:34)
[2018-08-19] MEDS: LATANOPROST 0.005% OPHTH SOLN 2.5ML BOTTLE OU SCH (21:34)
[2018-08-20] MEDS ORDERED: PT OWN MED DRAWER 7, Y5N ONE ×4 (00:42→10:36)
[2018-08-20] MEDS: diphenhydrAMINE HCL 25 MG CAPSULE (FP) PO PRN (03:07)
[2018-08-20 04:44] VITALS: TEMP 98
[2018-08-20 05:54] VITALS: BP 132/68; PULSE 72
[2018-08-20] MEDS: INSULIN SLIDING SCALE (NOVOLOG) 1 VIAL SQ SCH ×2 (06:27→12:09)
[2018-08-20 06:41] LABS: ALBUMIN 3.5 g/dl (3.4-5.0); ALK PHOS 37 U/L (45-117); ANION GAP 9 MMOL/L (8-16); BLOOD UREA NITROGEN 58 mg/dL (7-18); CHLORIDE 91 mmol/L (98-107); CO2 35 mmol/L (21-32); POTASSIUM 3.1 mmol/L (3.5-5.1); SODIUM 135 mmol/L (136-145)
[2018-08-20] MEDS: DOCUSATE SODIUM 100 MG CAPSULE (FP) PO SCH (06:43)
[2018-08-20] MEDS: glipiZIDE 5 MG TABLET (FP) PO SCH (06:43)
[2018-08-20] MEDS: metFORMIN HCL 500 MG TABLET (FP) PO SCH (06:43)
[2018-08-20] MEDS: POLYETHYLENE GLYCOL 3350 119 GM BTL PO PRN (06:43)
[2018-08-20] MEDS: OXYBUTYNIN CHLORIDE 5 MG TABLET PO SCH (06:43)
[2018-08-20 06:47] LABS: BILIRUBIN,TOTAL 0.4 mg/dL (0.2-1); CALCIUM 9.8 mg/dL (8.5-10.1); CREATININE 1.9 mg/dL (0.55-1.3); GLUCOSE,RANDOM 154 mg/dL (74-106); SGOT/AST 25 U/L (15-37); SGPT/ALT 21 U/L (13-61)
[2018-08-20] MEDS: ALBUTEROL SO4 2.5/IPRATROPIUM 0.5 INH SOL 3 ML VIAL.NEB. NEB SCH ×2 (08:30→12:05)
[2018-08-20] MEDS ORDERED: POTASSIUM CHLORIDE TABS 20 MEQ TABLET.ER (FP) PO ONE (08:45)
--- NOTE | 2018-08-20 09:08 | PN ---
Progress Note (short form) - Note Progress Note: Complains of worsening itching, now has rash on lower abdominal wall. Leg swelling improved, less drainage from toes. May need change of antibiotic or Dermatology evaluation. Continue local care, wraps and diuresis
--- NOTE | 2018-08-20 09:23 | DS ---
Physical Examination Vital Signs: Vital Signs Temperature 98.0 F 08/20/18 05:47 Pulse Rate 72 08/20/18 05:47 Respiratory Rate 18 08/20/18 05:47 Blood Pressure 132/68 08/20/18 05:47 O2 Sat by Pulse Oximetry (%) 93 L 08/19/18 21:00 Constitutional: Yes: Calm, Obese HENT: Yes: Normocephalic Neck: Yes: Trachea Midline Cardiovascular: Yes: Regular Rate and Rhythm Respiratory: Yes: CTA Bilaterally Gastrointestinal: Yes: Normal Bowel Sounds, Abdomen, Obese Edema: Yes Edema: LLE: 1+, RLE: 1+ Peripheral Pulses WNL: Yes Integumentary: Yes: Laceration, Venous Stasis Changes, Other (bilteral feet with macerated blisters and swollen toes, improved since admission, weeping minimal serous fluid) Neurological: Yes: WNL ...Motor Strength: WNL Psychiatric: Yes: WNL Labs: CBC, BMP 08/19/18 06:00 08/20/18 06:00 Discharge Summary Reason For Visit: SWELLING OF LOWER LEFT EXTREMITY Current Active Problems Edema of both feet (Acute) PAD (peripheral artery disease) (Acute) PAD (peripheral artery disease) (Acute) Stasis dermatitis of both legs (Acute) Hospital Course: Admitted for swollen erythmatous bilateral lower extremities especially the feet. was treated with iv abx and iv diuresis with slow gradual improvement. vascular studies showed some PAD, but no need for interventin at present. medically stable to dc home on oral diuretics and oral abx for another 6 days. needs to follow up with wound care center and needs to repeat renal function next week. Condition: Fair - Instructions Diet, Activity, Other Instructions: please call wound care for appointment next week check labs next week f/up with next week Referrals: Mohamud Cadena MD [Primary Care Provider] - Disposition: VNS/HOME HEALTH CARE - Home Medications Comprehensive Discharge Medication List: Ambulatory Orders Simvastatin [Zocor -] 40 mg PO HS 08/05/13 Insulin (Levemir) [Levemir Flexpen -] 20 units SQ HS 01/14/17 Albuterol 2.5/Ipratropium 0.5 [Duoneb -] 1 neb IH QID 06/27/17 Atenolol [Tenormin -] 25 mg PO DAILY 06/27/17 Glipizide/Metformin HCl [Glipizide-Metformin 5-500 mg] 1 each PO BID 06/27/17 Latanoprost 0.005% Eye Drops [Xalatan 0.005% Eye Drops -] 1 drop OU HS 06/27/17 Mirabegron [Myrbetriq] 25 mg PO DAILY 06/27/17 Potassium Chloride [Klor-Con M10] 10 meq PO DAILY 06/27/17 Docusate Sodium [Colace] 100 mg PO DAILY 08/12/18 Donepezil HCl [Aricept] 5 mg PO DAILY 08/12/18 Empagliflozin [Jardiance] 25 mg PO DAILY 08/12/18 Fenofibrate Nanocrystallized [Tricor] 145 mg PO DAILY 08/12/18 Hydrocortisone 1% Cream [Hytone 1% Cream -] 1 applic TP DAILY 08/12/18 Lutein Extract/Zeaxanthin Ext [Lutein 15 mg Softgel] 1 each PO DAILY 08/12/18 Mv-Mn/Lutein/Zeax/Bilber/Hb277 [Macular Health Formula Capsule] 1 each PO DAILY 08/12/18 Nystatin Cream [Mycostatin Cream -] 1 applic TP ASDIR 08/12/18 Omeprazole 20 mg PO DAILY 08/12/18 Oxybutynin Chloride [Ditropan Xl] 15 mg PO DAILY 08/12/18 Sitagliptin Phosphate [Januvia] 100 mg PO DAILY 08/12/18 Tamsulosin HCl [Flomax -] 0.4 mg PO DAILY 08/12/18 Vit C/E/Zn/Coppr/Lutein/Zeaxan [Preservision Areds 2 Softgel] 1 each PO BID 11/17 Vit C/Vit E/Lutein/Min/Fallon-3 [Ocuvite Softgel] 1 each PO BID 08/12/18 Aspirin [ASA -] 81 mg PO DAILY tab.chew 08/20/18 Budesonide/Formeterol Fumarate [SYMBICORT 160/4.5mcg -] 2 puff IH BID inhaler 08/20/18 Cephalexin Monohydrate [Keflex -] 500 mg PO BID #12 capsule 08/20/18 Docusate Sodium [Colace -] 100 mg PO TID capsule 08/20/18 Fluocinonide 0.05% Cream [Lidex 0.05% Cream -] 1 applic TP BID #45 grams Polyethylene Glycol 3350 [Miralax 119 gm Btl -] 17 gm PO DAILY PRN bottle 08/20 Torsemide [Demadex -] 20 mg PO BID #60 tablet 08/20/18 hydrOXYzine HCL [Atarax -] 25 mg PO TID PRN #30 tablet 08/20/18
[2018-08-20] MEDS: CEPHALEXIN MONOHYDRATE 500 MG CAPSULE (UD) PO SCH (10:38)
[2018-08-20] MEDS: ASPIRIN 81 MG CHEWABLE TABLETS PO SCH (10:38)
[2018-08-20] MEDS: POTASSIUM CHLORIDE TABS 10 MEQ TABLET.ER (FP) PO SCH (10:38)
[2018-08-20] MEDS: FLUOCINONIDE 0.05% CREAM (15 GM TUBE) TP SCH (10:39)
[2018-08-20] MEDS: BUDESONIDE/FORMETEROL FUMARATE 160/4.5 mcg INHALER IH SCH (10:39)
[2018-08-20] MEDS: FENOFIBRIC ACID 135 MG CAP PO SCH (10:40)
[2018-08-20] MEDS: ATENOLOL 25 MG TABLET (FP) PO SCH (10:45)
== END 2018-08-20 13:31 | disposition home health service (06) | DRG 603 ==
LOC: JER 12:02 → JERBED 18:32 → J4S 20:55 → OBSVTOIN 08-14 08:52
PROVIDERS: ADMIT Internal Medicine; ATTEND Internal Medicine
DX: L03.115 Cellulitis of right lower limb (principal); Z68.41 Body mass index [BMI] 40.0-44.9, adult; I50.32 Chronic diastolic (congestive) heart failure; I73.9 Peripheral vascular disease, unspecified; L03.116 Cellulitis of left lower limb; I87.2 Venous insufficiency (chronic) (peripheral); E66.9 Obesity, unspecified; J45.909 Unspecified asthma, uncomplicated; E11.9 Type 2 diabetes mellitus without complications; J44.9 Chronic obstructive pulmonary disease, unspecified; R60.0 Localized edema; N40.0 Benign prostatic hyperplasia without lower urinary tract symptoms
CPT/HCPCS: 36415; 71045-TC-FY; 71046-TC-FY; 80053; 82962; 85025; 85610; 86850; 86900; 86901; 93005; 93010; 93923; 93925-TC; 93970-TC; 94640; 97116-GP; 97162-GP; 99282-25; G0378; J7620

== ENCOUNTER 2019-05-22 08:29 | Inpatient (IN) | payer OTHER | END 2019-05-25 14:40 | LOC: JER 08:29 → JERBED 14:45 → J5S 16:18 ==

== ENCOUNTER 2023-11-28 14:35 | Inpatient (IN) | payer OTHER ==
[2023-11-28 15:39] VITALS: BMI 34.3
[2023-11-28] MEDS ORDERED: ALBUTEROL SO4 2.5/IPRATROPIUM 0.5 INH SOL 3 ML VIAL.NEB. NEB ONE ×2 (16:08→16:09)
[2023-11-28 16:29] LABS: INR 1.05 (0.83-1.09); PROTHROMBIN TIME (PATIENT) 12.2 SEC (9.7-13.0)
[2023-11-28 16:30] LABS: ALBUMIN 3.7 g/dl (3.4-5.0); BILIRUBIN,TOTAL 0.5 mg/dl (0.2-1); CALCIUM 8.9 mg/dl (8.5-10.1); CREATININE 1.1 mg/dl (0.6-1.3); HEMATOCRIT 36.8 % (35.4-49); HEMOGLOBIN 12.2 G/dL (11.7-16.9); MCH 32.2 pg (25.7-33.7); MCHC 33.1 g/dl (32.0-35.9); MEAN CELL VOLUME 97.4 fl (80-96); MEAN PLT VOLUME 7.8 fl (7.5-11.1); PLATELET COUNT 127.3 10^3/uL (134-434); POTASSIUM 3.9 mmol/L (3.5-5.1); RBC 3.78 10^6/uL (4.00-5.60); RDW 14.1 % (11.9-15.9); WHITE BLOOD COUNT 5.9 10^3/uL (4.0-10.8)
[2023-11-28 16:32] LABS: ACTIVATED PTT 29.5 SECONDS (25.2-36.5)
[2023-11-28] MEDS ORDERED: LACTULOSE 20 GM/30 ML UDC (FOR ORAL USE ONLY) PO ONE (17:18)
[2023-11-28 17:25] LABS: VENOUS BASE EXCESS 1.1 mmol/L (-2-2); VENOUS O2 SATURATION 92.7 % (70-80); VENOUS PCO2 39.2 mmHg (38-52); VENOUS PH 7.43 (7.310-7.410)
[2023-11-28] MEDS ORDERED: LACTULOSE 20 GM/30 ML UDC (FOR ORAL USE ONLY) ONE (17:38)
[2023-11-28 17:41] LABS: PLATELET ESTIMATE SLT DECREASE
[2023-11-28 17:56] LABS: N-TERMINAL BNP 2887.7 pg/ml (5-450)
[2023-11-28] MEDS ORDERED: OSELTAMIVIR PHOSPHATE 75 MG CAPSULE PO ONE (21:58)
[2023-11-28] MEDS ORDERED: OSELTAMIVIR PHOSPHATE 75 MG CAPSULE ONE (22:16)
[2023-11-29] MEDS: ACETAMINOPHEN 1000 MG/100 ML BAG IVPB PRN ×2 (00:30→21:32)
[2023-11-29] MEDS ORDERED: ALBUTEROL SO4 0.083% IH SOL 2.5 MG/3 ML VIAL.NEB. NEB PRN (05:53)
[2023-11-29 08:56] LABS: POTASSIUM 3.7 mmol/L (3.5-5.1)
[2023-11-29] MEDS ORDERED: guaiFENesin/D-M SUGAR-FREE/ACLHOL-FREE (200 MG/10 MG) 5 ML PO PRN (09:04)
[2023-11-29] MEDS ORDERED: FUROSEMIDE 40 MG/4 ML INJECTABLE VIAL IVPUSH ONE ×2 (09:09→15:34)
[2023-11-29] MEDS: FAMOTIDINE 20 MG TABLET PO SCH (09:54)
[2023-11-29] MEDS: amLODIPine BESYLATE 5 MG TABLET (FP) PO SCH (09:54)
[2023-11-29] MEDS: ESCITALOPRAM OXALATE 10 MG TABLET PO SCH (09:54)
[2023-11-29] MEDS: methylPREDNISolone NA SUCC 40 MG/1 ML VIAL IVPUSH SCH ×2 (09:54→10:06)
[2023-11-29] MEDS: MEMANTINE HCL 5 MG TABLET (UD) PO SCH (09:54)
[2023-11-29] MEDS: CARVEDILOL 12.5 MG TABLET (FP) PO SCH ×2 (09:54→21:19)
[2023-11-29] MEDS: DOCUSATE SODIUM 100 MG CAPSULE (FP) PO SCH (09:54)
[2023-11-29] MEDS: POLYETHYLENE GLYCOL (HEALTHYLAX) 3350 17 GM PACKET PO SCH ×2 (09:55→21:21)
[2023-11-29] MEDS: OSELTAMIVIR PHOSPHATE 75 MG CAPSULE PO SCH ×2 (09:58→21:19)
[2023-11-29] MEDS: FLUTICASONE PROP 0.05% 16 GM NASAL SPRAY NS SCH ×2 (09:59→21:49)
[2023-11-29 11:42] LABS: BASO % 0.3 % (0-2.0); EOS % 0.8 % (0-4.5); HEMOGLOBIN 12.6 GM/dL (11.7-16.9); MCH 31.9 pg (25.7-33.7); MCHC 33.3 g/dl (32.0-35.9); MEAN CELL VOLUME 95.8 fl (80-96); MEAN PLT VOLUME 7.7 fl (7.5-11.1); MONO % 11.4 % (3.8-10.2); NEUT % 76.5 % (42.8-82.8); PLATELET COUNT 157 10^3/uL (134-434); RBC 3.97 M/mm3 (4.00-5.60); RDW 14.3 % (11.9-15.9); WHITE BLOOD COUNT 7.1 K/mm3 (4.0-10.0)
[2023-11-29] MEDS: INSULIN ASPART SLIDING SCALE (NOVOLOG) 1 VIAL SQ SCH ×3 (11:43→21:33)
[2023-11-29] MEDS: ALBUTEROL SO4 2.5/IPRATROPIUM 0.5 INH SOL 3 ML VIAL.NEB. NEB SCH ×3 (13:20→20:45)
[2023-11-29] MEDS: LATANOPROST 0.005% OPHTH SOLN 2.5ML BOTTLE OU SCH ×2 (13:21→21:50)
[2023-11-29] MEDS: GABAPENTIN 100 MG CAPSULE PO SCH ×2 (15:11→21:18)
[2023-11-29] MEDS: MELATONIN 5 MG TABLETS PO SCH (21:18)
[2023-11-29] MEDS: SENNOSIDES 8.6MG TABLET (FP) PO SCH (21:49)
[2023-11-30] MEDS: GABAPENTIN 100 MG CAPSULE PO SCH ×3 (06:29→21:17)
[2023-11-30] MEDS: INSULIN ASPART SLIDING SCALE (NOVOLOG) 1 VIAL SQ SCH ×4 (06:33→21:30)
[2023-11-30] MEDS: ALBUTEROL SO4 2.5/IPRATROPIUM 0.5 INH SOL 3 ML VIAL.NEB. NEB SCH ×4 (07:55→20:40)
[2023-11-30] MEDS: methylPREDNISolone NA SUCC 40 MG/1 ML VIAL IVPUSH SCH ×2 (07:55→11:49)
[2023-11-30 08:24] LABS: HEMATOCRIT 40.3 % (35.4-49); HEMOGLOBIN 13.2 G/dL (11.7-16.9); MCHC 32.7 g/dl (32.0-35.9); MEAN CELL VOLUME 97.7 fl (80-96); MEAN PLT VOLUME 8.2 fl (7.5-11.1); RBC 4.12 10^6/uL (4.00-5.60); RDW 13.7 % (11.9-15.9); WHITE BLOOD COUNT 5.8 10^3/uL (4.0-10.8)
[2023-11-30] MEDS ORDERED: TAMSULOSIN HCL 0.4 MG CAP PO SCH (08:30)
[2023-11-30 09:04] LABS: ALBUMIN 3.7 g/dl (3.4-5.0); BILIRUBIN,TOTAL 0.7 mg/dl (0.2-1); CALCIUM 8.9 mg/dl (8.5-10.1); CREATININE 1.3 mg/dl (0.6-1.3); MAGNESIUM 1.8 mg/dL (1.8-2.4); PHOSPHOROUS 5.3 (2.5-4.9); POTASSIUM 3.6 mmol/L (3.5-5.1); TOT PROT 6.2 g/dl (6.4-8.2)
[2023-11-30] MEDS: OSELTAMIVIR PHOSPHATE 75 MG CAPSULE PO SCH ×2 (09:47→21:17)
[2023-11-30] MEDS: MEMANTINE HCL 5 MG TABLET (UD) PO SCH (09:48)
[2023-11-30] MEDS: PANTOPRAZOLE 40 MG TABLET PO SCH (09:48)
[2023-11-30] MEDS: FAMOTIDINE 20 MG TABLET PO SCH (09:48)
[2023-11-30] MEDS: ESCITALOPRAM OXALATE 10 MG TABLET PO SCH (09:48)
[2023-11-30] MEDS: CARVEDILOL 12.5 MG TABLET (FP) PO SCH ×2 (09:48→21:17)
[2023-11-30] MEDS: amLODIPine BESYLATE 5 MG TABLET (FP) PO SCH (09:48)
[2023-11-30] MEDS: TAMSULOSIN HCL 0.4 MG CAP PO SCH (09:49)
[2023-11-30] MEDS: POLYETHYLENE GLYCOL (HEALTHYLAX) 3350 17 GM PACKET PO SCH ×2 (09:49→21:17)
[2023-11-30] MEDS: DOCUSATE SODIUM 100 MG CAPSULE (FP) PO SCH (09:49)
[2023-11-30] MEDS: FLUTICASONE PROP 0.05% 16 GM NASAL SPRAY NS SCH ×2 (09:50→21:18)
[2023-11-30] MEDS: ENOXAPARIN NA (PORCINE) 40 MG/0.4 ML DISP.SYRIN SQ SCH (09:51)
[2023-11-30] MEDS: LATANOPROST 0.005% OPHTH SOLN 2.5ML BOTTLE OU SCH ×2 (11:50→21:19)
[2023-11-30] MEDS: SENNOSIDES 8.6MG TABLET (FP) PO SCH (21:17)
[2023-11-30] MEDS: MELATONIN 5 MG TABLETS PO SCH (21:17)
[2023-12-01] MEDS: GABAPENTIN 100 MG CAPSULE PO SCH ×3 (06:53→21:04)
[2023-12-01] MEDS: INSULIN ASPART SLIDING SCALE (NOVOLOG) 1 VIAL SQ SCH ×4 (06:56→21:05)
[2023-12-01] MEDS: ESCITALOPRAM OXALATE 10 MG TABLET PO SCH (10:13)
[2023-12-01] MEDS: OSELTAMIVIR PHOSPHATE 75 MG CAPSULE PO SCH ×2 (10:13→21:04)
[2023-12-01] MEDS: ALBUTEROL SO4 2.5/IPRATROPIUM 0.5 INH SOL 3 ML VIAL.NEB. NEB SCH ×4 (10:13→21:03)
[2023-12-01] MEDS: FAMOTIDINE 20 MG TABLET PO SCH (10:13)
[2023-12-01] MEDS: MEMANTINE HCL 5 MG TABLET (UD) PO SCH (10:13)
[2023-12-01] MEDS: amLODIPine BESYLATE 5 MG TABLET (FP) PO SCH (10:13)
[2023-12-01] MEDS: ENOXAPARIN NA (PORCINE) 40 MG/0.4 ML DISP.SYRIN SQ SCH (10:14)
[2023-12-01] MEDS: POLYETHYLENE GLYCOL (HEALTHYLAX) 3350 17 GM PACKET PO SCH ×2 (10:14→21:06)
[2023-12-01] MEDS: TAMSULOSIN HCL 0.4 MG CAP PO SCH (10:15)
[2023-12-01] MEDS: DOCUSATE SODIUM 100 MG CAPSULE (FP) PO SCH (10:15)
[2023-12-01] MEDS: PANTOPRAZOLE 40 MG TABLET PO SCH (10:15)
[2023-12-01] MEDS: methylPREDNISolone NA SUCC 40 MG/1 ML VIAL IVPUSH SCH ×2 (10:16→21:04)
[2023-12-01] MEDS: FLUTICASONE PROP 0.05% 16 GM NASAL SPRAY NS SCH ×2 (10:16→21:05)
[2023-12-01] MEDS: CARVEDILOL 12.5 MG TABLET (FP) PO SCH ×2 (10:16→21:04)
[2023-12-01] MEDS: LATANOPROST 0.005% OPHTH SOLN 2.5ML BOTTLE OU SCH ×2 (10:17→21:05)
[2023-12-01 11:08] LABS: CALCIUM 8.5 mg/dl (8.5-10.1); CREATININE 1.1 mg/dl (0.6-1.3); POTASSIUM 3.5 mmol/L (3.5-5.1)
[2023-12-01] MEDS: guaiFENesin/D-M SUGAR-FREE/ACLHOL-FREE (200 MG/10 MG) 5 ML PO SCH ×2 (12:52→21:05)
[2023-12-01] MEDS: MELATONIN 5 MG TABLETS PO SCH (21:04)
[2023-12-01] MEDS: SENNOSIDES 8.6MG TABLET (FP) PO SCH (21:06)
[2023-12-02] MEDS: GABAPENTIN 100 MG CAPSULE PO SCH ×3 (06:56→22:43)
[2023-12-02] MEDS: guaiFENesin/D-M SUGAR-FREE/ACLHOL-FREE (200 MG/10 MG) 5 ML PO SCH ×2 (06:56→19:11)
[2023-12-02] MEDS: INSULIN ASPART SLIDING SCALE (NOVOLOG) 1 VIAL SQ SCH ×4 (06:56→23:05)
[2023-12-02 08:37] LABS: HEMATOCRIT 36.3 % (35.4-49); HEMOGLOBIN 11.9 G/dL (11.7-16.9); MCH 31.6 pg (25.7-33.7); MCHC 32.9 g/dl (32.0-35.9); MEAN PLT VOLUME 8.5 fl (7.5-11.1); RBC 3.78 10^6/uL (4.00-5.60); RDW 13.4 % (11.9-15.9); WHITE BLOOD COUNT 5.7 10^3/uL (4.0-10.8)
[2023-12-02] MEDS ORDERED: MAGNESIUM CITRATE 300 ML BOTTLE PO PRN (09:22)
[2023-12-02] MEDS: ENOXAPARIN NA (PORCINE) 40 MG/0.4 ML DISP.SYRIN SQ SCH (09:32)
[2023-12-02] MEDS: methylPREDNISolone NA SUCC 40 MG/1 ML VIAL IVPUSH SCH ×2 (09:33→22:44)
[2023-12-02] MEDS: MEMANTINE HCL 5 MG TABLET (UD) PO SCH (09:33)
[2023-12-02] MEDS: CHOLECALCIFEROL (VIT D3) 1,000 UNIT (25 MCG) TABLET PO SCH (09:33)
[2023-12-02] MEDS: amLODIPine BESYLATE 5 MG TABLET (FP) PO SCH (09:34)
[2023-12-02] MEDS: OSELTAMIVIR PHOSPHATE 75 MG CAPSULE PO SCH ×2 (09:34→22:43)
[2023-12-02] MEDS: CARVEDILOL 12.5 MG TABLET (FP) PO SCH ×2 (09:34→22:43)
[2023-12-02] MEDS: TAMSULOSIN HCL 0.4 MG CAP PO SCH (09:34)
[2023-12-02] MEDS: ESCITALOPRAM OXALATE 10 MG TABLET PO SCH (09:35)
[2023-12-02] MEDS: PANTOPRAZOLE 40 MG TABLET PO SCH (09:35)
[2023-12-02] MEDS: FAMOTIDINE 20 MG TABLET PO SCH (09:37)
[2023-12-02] MEDS: FLUTICASONE PROP 0.05% 16 GM NASAL SPRAY NS SCH ×2 (09:38→23:07)
[2023-12-02] MEDS: ALBUTEROL SO4 2.5/IPRATROPIUM 0.5 INH SOL 3 ML VIAL.NEB. NEB SCH ×4 (09:39→20:40)
[2023-12-02] MEDS: DOCUSATE SODIUM 100 MG CAPSULE (FP) PO SCH (09:39)
[2023-12-02] MEDS: POLYETHYLENE GLYCOL (HEALTHYLAX) 3350 17 GM PACKET PO SCH ×2 (09:47→19:11)
[2023-12-02] MEDS: LATANOPROST 0.005% OPHTH SOLN 2.5ML BOTTLE OU SCH ×2 (09:48→23:06)
[2023-12-02] MEDS: INSULIN (LEVEMIR) 100 UNITS/ML UNITS SQ SCH ×2 (09:52→23:06)
[2023-12-02 09:58] LABS: CALCIUM 8.7 mg/dl (8.5-10.1); CREATININE 1.1 mg/dl (0.6-1.3); POTASSIUM 3.6 mmol/L (3.5-5.1)
[2023-12-02] MEDS ORDERED: CHOLECALCIFEROL (VIT D3) 1,000 UNIT (25 MCG) TABLET PO SCH (10:00)
[2023-12-02] MEDS: MELATONIN 5 MG TABLETS PO SCH (22:43)
[2023-12-03] MEDS: SENNOSIDES 8.6MG TABLET (FP) PO SCH ×2 (01:07→22:12)
[2023-12-03] MEDS: POLYETHYLENE GLYCOL (HEALTHYLAX) 3350 17 GM PACKET PO SCH ×4 (01:07→22:11)
[2023-12-03] MEDS: guaiFENesin/D-M SUGAR-FREE/ACLHOL-FREE (200 MG/10 MG) 5 ML PO SCH ×4 (01:07→22:23)
[2023-12-03] MEDS: GABAPENTIN 100 MG CAPSULE PO SCH ×3 (06:36→22:11)
[2023-12-03] MEDS: INSULIN ASPART SLIDING SCALE (NOVOLOG) 1 VIAL SQ SCH ×4 (06:41→22:27)
[2023-12-03] MEDS: ALBUTEROL SO4 2.5/IPRATROPIUM 0.5 INH SOL 3 ML VIAL.NEB. NEB SCH ×4 (09:37→22:12)
[2023-12-03] MEDS: MEMANTINE HCL 5 MG TABLET (UD) PO SCH (09:38)
[2023-12-03] MEDS: PANTOPRAZOLE 40 MG TABLET PO SCH (09:38)
[2023-12-03] MEDS: OSELTAMIVIR PHOSPHATE 75 MG CAPSULE PO SCH ×2 (09:38→22:12)
[2023-12-03] MEDS: TAMSULOSIN HCL 0.4 MG CAP PO SCH ×2 (09:38→22:12)
[2023-12-03] MEDS: ENOXAPARIN NA (PORCINE) 40 MG/0.4 ML DISP.SYRIN SQ SCH (09:39)
[2023-12-03] MEDS: FAMOTIDINE 20 MG TABLET PO SCH (09:40)
[2023-12-03] MEDS: CARVEDILOL 12.5 MG TABLET (FP) PO SCH ×2 (09:40→22:12)
[2023-12-03] MEDS: CHOLECALCIFEROL (VIT D3) 1,000 UNIT (25 MCG) TABLET PO SCH (09:41)
[2023-12-03] MEDS: amLODIPine BESYLATE 5 MG TABLET (FP) PO SCH (09:41)
[2023-12-03] MEDS: INSULIN (LEVEMIR) 100 UNITS/ML UNITS SQ SCH ×2 (09:42→22:26)
[2023-12-03] MEDS: ESCITALOPRAM OXALATE 10 MG TABLET PO SCH (09:42)
[2023-12-03] MEDS: methylPREDNISolone NA SUCC 40 MG/1 ML VIAL IVPUSH SCH ×2 (09:42→22:12)
[2023-12-03] MEDS: FLUTICASONE PROP 0.05% 16 GM NASAL SPRAY NS SCH ×2 (09:43→22:13)
[2023-12-03] MEDS: LATANOPROST 0.005% OPHTH SOLN 2.5ML BOTTLE OU SCH ×2 (09:44→22:13)
[2023-12-03] MEDS: CEFTRIAXONE 1 GM in DEXTROSE 5%-WATER - 50 ML IVPB SCH (12:26)
[2023-12-03] MEDS: DOCUSATE SODIUM 100 MG CAPSULE (FP) PO SCH (17:22)
[2023-12-03] MEDS: MELATONIN 5 MG TABLETS PO SCH (22:12)
[2023-12-04] MEDS: GABAPENTIN 100 MG CAPSULE PO SCH ×3 (06:20→22:31)
[2023-12-04] MEDS: guaiFENesin/D-M SUGAR-FREE/ACLHOL-FREE (200 MG/10 MG) 5 ML PO SCH ×3 (06:20→22:56)
[2023-12-04] MEDS: POLYETHYLENE GLYCOL (HEALTHYLAX) 3350 17 GM PACKET PO SCH ×3 (06:20→22:56)
[2023-12-04] MEDS: INSULIN ASPART SLIDING SCALE (NOVOLOG) 1 VIAL SQ SCH ×4 (06:26→22:34)
[2023-12-04] MEDS: ALBUTEROL SO4 2.5/IPRATROPIUM 0.5 INH SOL 3 ML VIAL.NEB. NEB SCH ×4 (09:34→22:29)
[2023-12-04] MEDS: CARVEDILOL 12.5 MG TABLET (FP) PO SCH ×2 (09:35→22:30)
[2023-12-04] MEDS: methylPREDNISolone NA SUCC 40 MG/1 ML VIAL IVPUSH SCH (09:36)
[2023-12-04] MEDS: TAMSULOSIN HCL 0.4 MG CAP PO SCH ×2 (09:36→22:30)
[2023-12-04] MEDS: CHOLECALCIFEROL (VIT D3) 1,000 UNIT (25 MCG) TABLET PO SCH (09:36)
[2023-12-04] MEDS: FAMOTIDINE 20 MG TABLET PO SCH (09:37)
[2023-12-04] MEDS: amLODIPine BESYLATE 5 MG TABLET (FP) PO SCH (09:37)
[2023-12-04] MEDS: MEMANTINE HCL 5 MG TABLET (UD) PO SCH (09:38)
[2023-12-04] MEDS: DOCUSATE SODIUM 100 MG CAPSULE (FP) PO SCH (09:38)
[2023-12-04] MEDS: ESCITALOPRAM OXALATE 10 MG TABLET PO SCH (09:38)
[2023-12-04] MEDS: FLUTICASONE PROP 0.05% 16 GM NASAL SPRAY NS SCH ×2 (09:39→22:31)
[2023-12-04] MEDS: ENOXAPARIN NA (PORCINE) 40 MG/0.4 ML DISP.SYRIN SQ SCH (09:39)
[2023-12-04] MEDS: CEFTRIAXONE 1 GM in DEXTROSE 5%-WATER - 50 ML IVPB SCH (09:40)
[2023-12-04] MEDS: PANTOPRAZOLE 40 MG TABLET PO SCH (09:42)
[2023-12-04] MEDS: INSULIN (LEVEMIR) 100 UNITS/ML UNITS SQ SCH ×2 (09:42→22:34)
[2023-12-04] MEDS: SENNOSIDES 8.6MG TABLET (FP) PO SCH (22:30)
[2023-12-04] MEDS: LATANOPROST 0.005% OPHTH SOLN 2.5ML BOTTLE OU SCH (22:31)
[2023-12-04] MEDS: MELATONIN 5 MG TABLETS PO SCH (22:31)
[2023-12-05] MEDS: POLYETHYLENE GLYCOL (HEALTHYLAX) 3350 17 GM PACKET PO SCH ×3 (06:47→22:05)
[2023-12-05] MEDS: GABAPENTIN 100 MG CAPSULE PO SCH ×3 (06:48→22:04)
[2023-12-05] MEDS: INSULIN ASPART SLIDING SCALE (NOVOLOG) 1 VIAL SQ SCH ×4 (06:48→22:05)
[2023-12-05] MEDS: TAMSULOSIN HCL 0.4 MG CAP PO SCH ×2 (10:03→22:04)
[2023-12-05] MEDS: CHOLECALCIFEROL (VIT D3) 1,000 UNIT (25 MCG) TABLET PO SCH (10:03)
[2023-12-05] MEDS: PANTOPRAZOLE 40 MG TABLET PO SCH (10:03)
[2023-12-05] MEDS: amLODIPine BESYLATE 5 MG TABLET (FP) PO SCH (10:03)
[2023-12-05] MEDS: FAMOTIDINE 20 MG TABLET PO SCH (10:04)
[2023-12-05] MEDS: DOCUSATE SODIUM 100 MG CAPSULE (FP) PO SCH (10:04)
[2023-12-05] MEDS: ESCITALOPRAM OXALATE 10 MG TABLET PO SCH (10:04)
[2023-12-05] MEDS: CARVEDILOL 12.5 MG TABLET (FP) PO SCH ×2 (10:05→22:04)
[2023-12-05] MEDS: MEMANTINE HCL 5 MG TABLET (UD) PO SCH (10:05)
[2023-12-05] MEDS: ENOXAPARIN NA (PORCINE) 40 MG/0.4 ML DISP.SYRIN SQ SCH (10:05)
[2023-12-05] MEDS: methylPREDNISolone NA SUCC 40 MG/1 ML VIAL IVPUSH SCH (10:06)
[2023-12-05] MEDS: INSULIN (LEVEMIR) 100 UNITS/ML UNITS SQ SCH ×2 (10:06→22:05)
[2023-12-05] MEDS: CEFTRIAXONE 1 GM in DEXTROSE 5%-WATER - 50 ML IVPB SCH (10:18)
[2023-12-05] MEDS: FLUTICASONE PROP 0.05% 16 GM NASAL SPRAY NS SCH ×2 (10:20→22:07)
[2023-12-05] MEDS: ALBUTEROL SO4 2.5/IPRATROPIUM 0.5 INH SOL 3 ML VIAL.NEB. NEB SCH ×4 (10:20→22:03)
[2023-12-05] MEDS: guaiFENesin/D-M SUGAR-FREE/ACLHOL-FREE (200 MG/10 MG) 5 ML PO SCH ×2 (17:23→22:03)
[2023-12-05] MEDS: MELATONIN 5 MG TABLETS PO SCH (22:04)
[2023-12-05] MEDS: SENNOSIDES 8.6MG TABLET (FP) PO SCH (22:06)
[2023-12-05] MEDS: LATANOPROST 0.005% OPHTH SOLN 2.5ML BOTTLE OU SCH (22:07)
[2023-12-06] MEDS: guaiFENesin/D-M SUGAR-FREE/ACLHOL-FREE (200 MG/10 MG) 5 ML PO SCH ×2 (06:40→13:23)
[2023-12-06] MEDS: POLYETHYLENE GLYCOL (HEALTHYLAX) 3350 17 GM PACKET PO SCH ×2 (06:40→13:25)
[2023-12-06] MEDS: GABAPENTIN 100 MG CAPSULE PO SCH ×2 (06:41→13:25)
[2023-12-06] MEDS: INSULIN ASPART SLIDING SCALE (NOVOLOG) 1 VIAL SQ SCH ×3 (06:41→16:36)
[2023-12-06] MEDS: ALBUTEROL SO4 2.5/IPRATROPIUM 0.5 INH SOL 3 ML VIAL.NEB. NEB SCH ×3 (08:40→16:34)
[2023-12-06 09:18] LABS: ALBUMIN 3.3 g/dl (3.4-5.0); BILIRUBIN,TOTAL 0.4 mg/dl (0.2-1); CALCIUM 8.4 mg/dl (8.5-10.1); POTASSIUM 4.5 mmol/L (3.5-5.1); TOT PROT 5.3 g/dl (6.4-8.2)
[2023-12-06] MEDS: INSULIN (LEVEMIR) 100 UNITS/ML UNITS SQ SCH (09:33)
[2023-12-06] MEDS: ENOXAPARIN NA (PORCINE) 40 MG/0.4 ML DISP.SYRIN SQ SCH (09:33)
[2023-12-06] MEDS: DOCUSATE SODIUM 100 MG CAPSULE (FP) PO SCH (09:33)
[2023-12-06] MEDS: methylPREDNISolone NA SUCC 40 MG/1 ML VIAL IVPUSH SCH (09:33)
[2023-12-06] MEDS: CHOLECALCIFEROL (VIT D3) 1,000 UNIT (25 MCG) TABLET PO SCH (09:34)
[2023-12-06] MEDS: TAMSULOSIN HCL 0.4 MG CAP PO SCH (09:34)
[2023-12-06] MEDS: PANTOPRAZOLE 40 MG TABLET PO SCH (09:34)
[2023-12-06] MEDS: amLODIPine BESYLATE 5 MG TABLET (FP) PO SCH (09:35)
[2023-12-06] MEDS: CARVEDILOL 12.5 MG TABLET (FP) PO SCH (09:35)
[2023-12-06] MEDS: MEMANTINE HCL 5 MG TABLET (UD) PO SCH (09:36)
[2023-12-06] MEDS: ESCITALOPRAM OXALATE 10 MG TABLET PO SCH (09:36)
[2023-12-06] MEDS: FAMOTIDINE 20 MG TABLET PO SCH (09:36)
[2023-12-06] MEDS: FLUTICASONE PROP 0.05% 16 GM NASAL SPRAY NS SCH (10:22)
[2023-12-06 10:25] LABS: BASO % 0.1 % (0-2.0); EOS % 0.6 % (0-4.5); HEMATOCRIT 35.4 % (35.4-49); HEMOGLOBIN 11.7 GM/dL (11.7-16.9); MCH 31.9 pg (25.7-33.7); MCHC 33.2 g/dl (32.0-35.9); MEAN PLT VOLUME 8.3 fl (7.5-11.1); NEUT % 72.3 % (42.8-82.8); PLATELET COUNT 197 10^3/uL (134-434); RBC 3.69 M/mm3 (4.00-5.60); RDW 13.5 % (11.9-15.9); WHITE BLOOD COUNT 9.1 K/mm3 (4.0-10.0)
[2023-12-06 11:34] LABS: ANISOCYTOSIS 0; HELMET CELLS 0; HOWELL-JOLLY BODIES 0; MACROCYTOSIS 0; OVALOCYTE 0; ROULEAU 0; SICKELED CELLS 0; TARGET CELLS 0; TEAR DROP CELLS 0; TOXIC GRANULATION 0
[2023-12-06 18:30] VITALS: BP 136/65; PULSE 63; RESP 19; TEMP 98.2
== END 2023-12-06 18:34 | DRG 291 ==
LOC: FER 14:35 → FM/S 21:58 → UNDOADMIN 22:23 → FM/S 22:23
PROVIDERS: ADMIT Internal Medicine
DX: I11.0 Hypertensive heart disease with heart failure (principal); I50.33 Acute on chronic diastolic (congestive) heart failure; J44.1 Chronic obstructive pulmonary disease with (acute) exacerbation; K56.7 Ileus, unspecified; E78.5 Hyperlipidemia, unspecified; J10.1 Influenza due to other identified influenza virus with other respiratory manifestations; N40.0 Benign prostatic hyperplasia without lower urinary tract symptoms; E11.51 Type 2 diabetes mellitus with diabetic peripheral angiopathy without gangrene; Z79.4 Long term (current) use of insulin; R33.8 Other retention of urine; K59.00 Constipation, unspecified; F32.A Depression, unspecified; R91.1 Solitary pulmonary nodule
CPT/HCPCS: 0241U-QW; 36415; 71045-TC-FY; 71250-TC; 74018-TC-FY; 74019-TC-FY; 74021-TC-FY; 74177-TC; 80048; 80053; 81003; 82306; 82803; 82962; 83605; 83735; 83880; 84100; 84443; 84484; 85025; 85027; 85610; 85730; 87040; 87086; 87186; 93005; 94640; 97116-GP; 97162-GP; 99285-25; Q9967

== ENCOUNTER 2024-01-21 11:46 | Inpatient (IN) | payer OTHER ==
[2024-01-21 12:54] LABS: INR 1.16 (0.83-1.09); PROTHROMBIN TIME (PATIENT) 13.4 SEC (9.7-13.0)
[2024-01-21 12:57] LABS: ACTIVATED PTT 28.4 SECONDS (25.2-36.5)
[2024-01-21] MEDS: methylPREDNISolone NA SUCC 125 MG/2 ML VIAL IVPUSH ONE (13:13)
[2024-01-21] MEDS ORDERED: methylPREDNISolone NA SUCC 125 MG/2 ML VIAL ONE (13:13)
[2024-01-21 13:14] LABS: ALBUMIN 3.6 g/dl (3.4-5.0); BILIRUBIN,TOTAL 0.4 mg/dl (0.2-1); CALCIUM 8.6 mg/dl (8.5-10.1); CREATININE 1.2 mg/dl (0.6-1.3); POTASSIUM 4.1 mmol/L (3.5-5.1); TOT PROT 5.9 g/dl (6.4-8.2)
[2024-01-21 13:16] LABS: HEMATOCRIT 36.2 % (35.4-49); MCH 32.4 pg (25.7-33.7); MCHC 33.2 g/dl (32.0-35.9); MEAN CELL VOLUME 97.5 fl (80-96); MEAN PLT VOLUME 8.2 fl (7.5-11.1); PLATELET COUNT 163.1 10^3/uL (134-434); RBC 3.71 10^6/uL (4.00-5.60); RDW 13.8 % (11.9-15.9); WHITE BLOOD COUNT 6.4 10^3/uL (4.0-10.8)
[2024-01-21 13:22] LABS: PLATELET ESTIMATE ADEQUATE
[2024-01-21 13:34] LABS: EPITHELIAL CELLS 0-5 /hpf
[2024-01-21] MEDS: ALBUTEROL SO4 2.5/IPRATROPIUM 0.5 INH SOL 3 ML VIAL.NEB. NEB SCH ×2 (14:08→16:21)
[2024-01-21] MEDS: MAGNESIUM SULF 50% (8.12 MEQ/2 ML-1 GM VIAL) IVPB ONE (14:08)
[2024-01-21] MEDS: GABAPENTIN 100 MG CAPSULE PO SCH (14:24)
[2024-01-21 14:50] VITALS: BMI 39.2
[2024-01-21 16:05] LABS: VENOUS BASE EXCESS 1.1 mmol/L (-2-2); VENOUS O2 SATURATION 97.3 % (70-80); VENOUS PCO2 59.6 mmHg (38-52); VENOUS PH 7.301 (7.310-7.410)
[2024-01-21] MEDS: CEFTRIAXONE 1,000 MG in DEXTROSE 5%-WATER - 50 ML IVPB ONE (16:21)
[2024-01-21] MEDS: INSULIN ASPART SLIDING SCALE (NOVOLOG) 1 VIAL SQ SCH (17:30)
[2024-01-21] MEDS: INSULIN (LEVEMIR) 100 UNITS/ML UNITS SQ SCH (21:10)
[2024-01-21] MEDS: CARVEDILOL 12.5 MG TABLET (FP) PO SCH (21:11)
[2024-01-22] MEDS: LATANOPROST 0.005% OPHTH SOLN 2.5ML BOTTLE OU SCH (06:44)
[2024-01-22 08:20] LABS: HEMATOCRIT 37.8 % (35.4-49); HEMOGLOBIN 12.8 G/dL (11.7-16.9); MCH 32.7 pg (25.7-33.7); MCHC 33.9 g/dl (32.0-35.9); MEAN CELL VOLUME 96.8 fl (80-96); MEAN PLT VOLUME 8.3 fl (7.5-11.1); PLATELET COUNT 178.9 10^3/uL (134-434); RBC 3.91 10^6/uL (4.00-5.60); RDW 13.5 % (11.9-15.9); WHITE BLOOD COUNT 5.9 10^3/uL (4.0-10.8)
[2024-01-22] MEDS: POLYETHYLENE GLYCOL (HEALTHYLAX) 3350 17 GM PACKET PO SCH (10:00)
[2024-01-22] MEDS ORDERED: PATIENT'S OWN MEDICATION (NON-FORMULARY) (Mirabegron [Myrbetriq] 50 MG Tab.Er.24h) PO SCH (10:00)
[2024-01-22] MEDS: CEFTRIAXONE 1 GM in DEXTROSE 5%-WATER - 50 ML IVPB SCH (10:01)
[2024-01-22] MEDS: predniSONE 20 MG TABLET (UD) PO SCH (10:02)
[2024-01-22] MEDS: MEMANTINE HCL 5 MG TABLET (UD) PO SCH (10:02)
[2024-01-22] MEDS: MULTIVITAMINS (DAILY MVI) TABLET (FP) PO SCH (10:02)
[2024-01-22] MEDS: DOCUSATE SODIUM 100 MG CAPSULE (FP) PO SCH (10:02)
[2024-01-22] MEDS: CHOLECALCIFEROL (VIT D3) 1,000 UNIT (25 MCG) TABLET PO SCH (10:02)
[2024-01-22] MEDS: ESCITALOPRAM OXALATE 10 MG TABLET PO SCH (10:02)
[2024-01-22] MEDS: FAMOTIDINE 20 MG TABLET PO SCH (10:02)
[2024-01-22] MEDS: ASCORBIC ACID 500 MG TABLET (FP) PO SCH (10:02)
[2024-01-22] MEDS: ENOXAPARIN NA (PORCINE) 40 MG/0.4 ML DISP.SYRIN SQ SCH (10:03)
[2024-01-22 10:39] LABS: POTASSIUM 3.9 mmol/L (3.5-5.1)
[2024-01-22 10:43] LABS: BLOOD UREA NITROGEN 28.2 mg/dL (7-18); CALCIUM 8.7 mg/dL (8.5-10.1); MAGNESIUM 2.4 mg/dL (1.8-2.4)
[2024-01-22 10:47] LABS: PHOSPHOROUS 4.7 mg/dL (2.5-4.9)
[2024-01-22 10:48] LABS: CREATININE 1.1 mg/dL (0.55-1.3)
[2024-01-22] MEDS: TAMSULOSIN HCL 0.4 MG CAP PO SCH (13:56)
[2024-01-23] MEDS: methylPREDNISolone NA SUCC 125 MG/2 ML VIAL IVPUSH SCH (10:12)
[2024-01-23] MEDS: FUROSEMIDE 40 MG/4 ML INJECTABLE VIAL IVPUSH SCH (12:03)
[2024-01-24] MEDS: INSULIN (NOVOLOG) ASPART 100 UNITS/ML 10ML VIAL SQ ONE (01:36)
[2024-01-24 07:52] LABS: BASO % 0.2 % (0-2.0); HEMATOCRIT 34.8 % (35.4-49); HEMOGLOBIN 11.8 GM/dL (11.7-16.9); MCH 32.2 pg (25.7-33.7); MCHC 33.9 g/dl (32.0-35.9); MONO % 4.6 % (3.8-10.2); NEUT % 82.2 % (42.8-82.8); PLATELET COUNT 189 10^3/uL (134-434); RBC 3.67 M/mm3 (4.00-5.60); RDW 13.6 % (11.9-15.9)
[2024-01-24 07:57] LABS: POTASSIUM 3.9 mmol/L (3.5-5.1)
[2024-01-24 08:06] LABS: CALCIUM 8.4 mg/dL (8.5-10.1)
[2024-01-24 08:07] LABS: BLOOD UREA NITROGEN 35.7 mg/dL (7-18)
[2024-01-24 08:10] LABS: CREATININE 1.2 mg/dL (0.55-1.3)
[2024-01-24 08:13] LABS: BILIRUBIN,TOTAL 0.3 mg/dL (0.2-1); TOT PROT 6.1 g/dl (6.4-8.2)
[2024-01-24] MEDS: MELATONIN 5 MG TABLETS PO PRN (22:56)
[2024-01-25] MEDS: INSULIN (NOVOLOG) ASPART 100 UNITS/ML 10ML VIAL SQ ONE (00:40)
[2024-01-25] MEDS ORDERED: ALBUTEROL SO4 2.5/IPRATROPIUM 0.5 INH SOL 3 ML VIAL.NEB. NEB SCH (08:00)
[2024-01-25] MEDS: ALBUTEROL SO4 2.5/IPRATROPIUM 0.5 INH SOL 3 ML VIAL.NEB. NEB SCH (08:23)
[2024-01-25] MEDS: CEFTRIAXONE 1 GM in DEXTROSE 5%-WATER - 50 ML IVPB SCH (09:31)
[2024-01-25] MEDS: INSULIN (LEVEMIR) 100 UNITS/ML UNITS SQ SCH (11:33)
[2024-01-25] MEDS: guaiFENesin/D-METHORPHAN HB 10 ML UNIT-DOSE CUPS PO PRN (22:37)
[2024-01-25] MEDS: INSULIN ASPART SLIDING SCALE (NOVOLOG) 1 VIAL SQ SCH (22:37)
[2024-01-26 07:21] LABS: HEMATOCRIT 36.6 % (35.4-49); HEMOGLOBIN 12.6 GM/dL (11.7-16.9); MCH 32.3 pg (25.7-33.7); MCHC 34.5 g/dl (32.0-35.9); MEAN CELL VOLUME 93.7 fl (80-96); PLATELET COUNT 182 10^3/uL (134-434); RBC 3.91 M/mm3 (4.00-5.60); RDW 13.8 % (11.9-15.9); WHITE BLOOD COUNT 9.2 K/mm3 (4.0-10.0)
[2024-01-26 07:30] LABS: POTASSIUM 4.2 mmol/L (3.5-5.1)
[2024-01-26 07:35] LABS: CALCIUM 8.4 mg/dL (8.5-10.1)
[2024-01-26 07:36] LABS: BLOOD UREA NITROGEN 39.3 mg/dL (7-18)
[2024-01-26 07:38] LABS: CREATININE 1.2 mg/dL (0.55-1.3)
[2024-01-26 07:40] LABS: BILIRUBIN,TOTAL 0.4 mg/dL (0.2-1); TOT PROT 6.2 g/dl (6.4-8.2)
[2024-01-26 09:39] LABS: ANISOCYTOSIS 1+; MACROCYTOSIS 0
[2024-01-26] MEDS ORDERED: INSULIN (LEVEMIR) 100 UNITS/ML UNITS SQ SCH (14:28)
[2024-01-26] MEDS: INSULIN ASPART SLIDING SCALE (NOVOLOG) 1 VIAL SQ SCH (16:56)
[2024-01-26] MEDS: methylPREDNISolone NA SUCC 40 MG/1 ML VIAL IVPUSH SCH (17:59)
[2024-01-26] MEDS ORDERED: INSULIN REGULAR HUMAN 100 UNITS/ML *VIAL IVPUSH ONE (18:46)
[2024-01-26] MEDS: PANTOPRAZOLE SODIUM 40 MG VIAL IVPUSH SCH (18:58)
[2024-01-26] MEDS: KETOROLAC TROMETHAMINE 15 MG/ML VIAL IVPUSH ONE (18:58)
[2024-01-26] MEDS ORDERED: DEXTROSE 50%-WATER - 25 GM/50 ML VIAL IVPUSH PRN (18:59)
[2024-01-26] MEDS: INSULIN (NOVOLOG) ASPART 100 UNITS/ML 10ML VIAL SQ ONE (19:52)
[2024-01-26] MEDS: BUDESONIDE 0.5 MG/2 ML INH SUSP VIAL NEB SCH (20:06)
[2024-01-26] MEDS: FAMOTIDINE 20 MG/50 ML IVPB 20 MG/50 ML MG IVPB ONE (22:05)
[2024-01-26] MEDS: INSULIN (LEVEMIR) 100 UNITS/ML UNITS SQ SCH (22:36)
[2024-01-27 07:43] LABS: HEMATOCRIT 36.8 % (35.4-49); HEMOGLOBIN 12.4 GM/dL (11.7-16.9); MCH 31.8 pg (25.7-33.7); MCHC 33.8 g/dl (32.0-35.9); MEAN CELL VOLUME 94.2 fl (80-96); PLATELET COUNT 175 10^3/uL (134-434); RDW 13.9 % (11.9-15.9)
[2024-01-27 07:57] LABS: POTASSIUM 3.7 mmol/L (3.5-5.1)
[2024-01-27 08:01] LABS: ALBUMIN 2.8 g/dl (3.4-5.0); CALCIUM 8.4 mg/dL (8.5-10.1)
[2024-01-27 08:04] LABS: CREATININE 1.1 mg/dL (0.55-1.3)
[2024-01-27 08:06] LABS: BILIRUBIN,TOTAL 0.3 mg/dL (0.2-1); TOT PROT 5.8 g/dl (6.4-8.2)
[2024-01-27 09:05] LABS: ANISOCYTOSIS 1+; MACROCYTOSIS 0
[2024-01-27] MEDS ORDERED: ACETAMINOPHEN 325 MG TABLET (FP) PO PRN (09:58)
[2024-01-27] MEDS ORDERED: methylPREDNISolone NA SUCC 40 MG/1 ML VIAL IVPUSH SCH (10:00)
[2024-01-27] MEDS: predniSONE 20 MG TABLET (UD) PO SCH (10:35)
[2024-01-27] MEDS: FUROSEMIDE 40 MG TABLET (FP) PO SCH (10:35)
[2024-01-28] MEDS: methylPREDNISolone NA SUCC 40 MG/1 ML VIAL IVPB SCH ×2 (12:48→13:01)
[2024-01-28] MEDS: INSULIN ASPART SLIDING SCALE (NOVOLOG) 1 VIAL SQ SCH (17:09)
[2024-01-28] MEDS: INSULIN (NOVOLOG) ASPART 100 UNITS/ML 10ML VIAL SQ ONE (22:42)
[2024-01-29] MEDS: KETOROLAC TROMETHAMINE 15 MG/ML VIAL IVPUSH PRN (09:28)
[2024-01-29] MEDS: PANTOPRAZOLE 40 MG TABLET PO SCH (09:28)
[2024-01-29] MEDS: ALBUTEROL SO4 2.5/IPRATROPIUM 0.5 INH SOL 3 ML VIAL.NEB. NEB SCH (11:20)
[2024-01-29] MEDS ORDERED: ALBUTEROL SO4 2.5/IPRATROPIUM 0.5 INH SOL 3 ML VIAL.NEB. NEB PRN (11:24)
[2024-01-29] MEDS: sitaGLIPtin PHOSPHATE 50 MG TABLET PO ONE (12:20)
[2024-01-29] MEDS: INSULIN (LEVEMIR) 100 UNITS/ML UNITS SQ SCH (21:44)
[2024-01-30] MEDS: sitaGLIPtin PHOSPHATE 50 MG TABLET PO SCH (06:34)
[2024-01-30 07:55] LABS: HEMATOCRIT 38.3 % (35.4-49); HEMOGLOBIN 12.6 GM/dL (11.7-16.9); MCH 31.2 pg (25.7-33.7); MCHC 32.8 g/dl (32.0-35.9); MEAN PLT VOLUME 8.7 fl (7.5-11.1); PLATELET COUNT 156 10^3/uL (134-434); RBC 4.03 M/mm3 (4.00-5.60); RDW 13.7 % (11.9-15.9); WHITE BLOOD COUNT 12.4 K/mm3 (4.0-10.0)
[2024-01-30 08:19] LABS: POTASSIUM 4.8 mmol/L (3.5-5.1)
[2024-01-30 08:22] LABS: ALBUMIN 2.8 g/dl (3.4-5.0); BLOOD UREA NITROGEN 49.1 mg/dL (7-18)
[2024-01-30 08:25] LABS: CREATININE 1.1 mg/dL (0.55-1.3)
[2024-01-30 08:27] LABS: BILIRUBIN,TOTAL 0.3 mg/dL (0.2-1); TOT PROT 5.6 g/dl (6.4-8.2)
[2024-01-30 09:01] LABS: ANISOCYTOSIS 0; MACROCYTOSIS 0
[2024-01-30] MEDS ORDERED: MELATONIN 5 MG TABLETS PO PRN (18:25)
[2024-01-30] MEDS ORDERED: guaiFENesin/D-METHORPHAN HB 10 ML UNIT-DOSE CUPS PO PRN (18:25)
[2024-01-30] MEDS: CARVEDILOL 12.5 MG TABLET (FP) PO SCH (21:25)
[2024-01-30] MEDS: INSULIN (LEVEMIR) 100 UNITS/ML UNITS SQ SCH (21:25)
[2024-01-30] MEDS: GABAPENTIN 100 MG CAPSULE PO SCH (21:26)
[2024-01-30] MEDS: LATANOPROST 0.005% OPHTH SOLN 2.5ML BOTTLE OU SCH (21:48)
[2024-01-31] MEDS: TAMSULOSIN HCL 0.4 MG CAP PO SCH (09:42)
[2024-01-31] MEDS: DOCUSATE SODIUM 100 MG CAPSULE (FP) PO SCH (09:42)
[2024-01-31] MEDS: CHOLECALCIFEROL (VIT D3) 1,000 UNIT (25 MCG) TABLET PO SCH (09:42)
[2024-01-31] MEDS: POLYETHYLENE GLYCOL (HEALTHYLAX) 3350 17 GM PACKET PO SCH (09:43)
[2024-01-31] MEDS: MULTIVITAMINS (DAILY MVI) TABLET (FP) PO SCH (09:43)
[2024-01-31] MEDS: ESCITALOPRAM OXALATE 10 MG TABLET PO SCH (09:43)
[2024-01-31] MEDS: MEMANTINE HCL 5 MG TABLET (UD) PO SCH (09:43)
[2024-01-31] MEDS: ASCORBIC ACID 500 MG TABLET (FP) PO SCH (09:43)
[2024-01-31] MEDS: FAMOTIDINE 20 MG TABLET PO SCH (09:50)
[2024-01-31] MEDS: guaiFENesin 600 MG TABLET.ER (FP) PO SCH (11:00)
[2024-01-31] MEDS: methylPREDNISolone NA SUCC 40 MG/1 ML VIAL IVPB SCH (14:46)
[2024-02-02 09:12] VITALS: RESP 18
[2024-02-02 20:34] VITALS: BP 135/68; PULSE 66; TEMP 98.5
== END 2024-02-02 20:45 | DRG 193 ==
LOC: FER 11:46 → FM/S 12:19 → OBSVTOIN 01-23 12:02 → J4S 01-23 17:21
PROVIDERS: ADMIT Internal Medicine; ATTEND Internal Medicine
DX: J12.1 Respiratory syncytial virus pneumonia (principal); I50.33 Acute on chronic diastolic (congestive) heart failure; J21.0 Acute bronchiolitis due to respiratory syncytial virus; E66.2 Morbid (severe) obesity with alveolar hypoventilation; J44.1 Chronic obstructive pulmonary disease with (acute) exacerbation; N39.0 Urinary tract infection, site not specified; I11.0 Hypertensive heart disease with heart failure; E78.5 Hyperlipidemia, unspecified; N40.0 Benign prostatic hyperplasia without lower urinary tract symptoms; E66.9 Obesity, unspecified; E11.51 Type 2 diabetes mellitus with diabetic peripheral angiopathy without gangrene; R09.02 Hypoxemia; K59.00 Constipation, unspecified; B96.4 Proteus (mirabilis) (morganii) as the cause of diseases classified elsewhere
CPT/HCPCS: 0241U-QW; 36415; 71045-TC-FY; 73630-TC-LT; 73630-TC-RT-FY; 76775-TC; 80048; 80053; 81003; 81015; 82550; 82803; 82962; 83036; 83605; 83735; 83880; 84100; 84484; 85025; 85027; 85610; 85730; 87040; 87086; 87186; 87635; 93005; 94640; 97116-GP; 97162-GP; 99285-25; G0378

== ENCOUNTER 2024-04-26 13:54 | Emergency (ER) | payer OTHER ==
[2024-04-26 14:19] VITALS: TEMP 97.8; BMI 37.4
[2024-04-26] MEDS ORDERED: ALBUTEROL SO4 2.5/IPRATROPIUM 0.5 INH SOL 3 ML VIAL.NEB. NEB ONE (15:34)
[2024-04-26] MEDS: ALBUTEROL SO4 2.5/IPRATROPIUM 0.5 INH SOL 3 ML VIAL.NEB. NEB ONE (15:38)
[2024-04-26 16:00] LABS: HEMATOCRIT 40.5 % (35.4-49); HEMOGLOBIN 13.2 G/dL (11.7-16.9); MCH 30.4 pg (25.7-33.7); MCHC 32.6 g/dl (32.0-35.9); MEAN CELL VOLUME 93.3 fl (80-96); MEAN PLT VOLUME 7.8 fl (7.5-11.1); RBC 4.34 10^6/uL (4.00-5.60); RDW 13.6 % (11.9-15.9); WHITE BLOOD COUNT 8.9 10^3/uL (4.0-10.8)
[2024-04-26 16:11] VITALS: BP 119/65
[2024-04-26 16:23] LABS: ALBUMIN 3.9 g/dl (3.4-5.0); BILIRUBIN,TOTAL 0.4 mg/dl (0.2-1); CALCIUM 9.4 mg/dl (8.5-10.1); CREATININE 1.2 mg/dl (0.6-1.3); PLATELET ESTIMATE ADEQUATE; POTASSIUM 4.2 mmol/L (3.5-5.1); TOT PROT 6.3 g/dl (6.4-8.2)
[2024-04-26 16:57] VITALS: PULSE 62; RESP 20
[2024-04-26 19:31] LABS: N-TERMINAL BNP 800.7 pg/ml (5-450)
== END 2024-04-26 18:07 ==
LOC: FER 13:54
PROC: 3E0F7GC Introduction of Other Therapeutic Substance into Respiratory Tract, Via Natural or Artificial Opening (ICD-10-PCS; principal; 2024-04-26)
DX: J44.9 Chronic obstructive pulmonary disease, unspecified (principal); R51.9 Headache, unspecified; R05.9 Cough, unspecified; Z20.822 Contact with and (suspected) exposure to COVID-19
CPT/HCPCS: 0241U-QW; 36415; 70450-TC; 71045-TC-FY; 80053; 83880; 85027; 99285-25

== ENCOUNTER 2024-04-29 11:19 | Inpatient (IN) | payer OTHER ==
[2024-04-29] MEDS: morphine CARPU-JECT 4 MG/1 ML DISP.SYRIN IVPUSH ONE (12:07)
[2024-04-29] MEDS ORDERED: ACETAMINOPHEN INJECTION 100 ML IVPB ONE (12:08)
[2024-04-29] MEDS ORDERED: methylPREDNISolone NA SUCC 125 MG/2 ML VIAL ONE (12:09)
[2024-04-29] MEDS: ACETAMINOPHEN 1000 MG/100 ML BAG IVPB ONE (12:11)
[2024-04-29] MEDS: methylPREDNISolone NA SUCC 125 MG/2 ML VIAL IVPB ONE (12:11)
[2024-04-29] MEDS: ALBUTEROL SO4 2.5/IPRATROPIUM 0.5 INH SOL 3 ML VIAL.NEB. NEB SCH ×2 (12:19→16:45)
[2024-04-29 12:20] LABS: BASO % 0.3 % (0-2.0); HEMATOCRIT 39.5 % (35.4-49); HEMOGLOBIN 13.5 GM/dL (11.7-16.9); LYMPH % 5.3 % (8-40); MCH 31.3 pg (25.7-33.7); MCHC 34.3 g/dl (32.0-35.9); MEAN CELL VOLUME 91.5 fl (80-96); MEAN PLT VOLUME 7.6 fl (7.5-11.1); MONO % 6.6 % (3.8-10.2); NEUT % 86.8 % (42.8-82.8); PLATELET COUNT 200 10^3/uL (134-434); RBC 4.31 M/mm3 (4.00-5.60); RDW 14.3 % (11.9-15.9); WHITE BLOOD COUNT 16.5 K/mm3 (4.0-10.0)
[2024-04-29 12:25] LABS: INR 1.04 (0.83-1.09); PROTHROMBIN TIME (PATIENT) 11.7 SEC (9.7-13.0)
[2024-04-29 12:28] LABS: ACTIVATED PTT 30.6 SECONDS (25.2-36.5)
[2024-04-29 12:44] LABS: POTASSIUM 4.1 mmol/L (3.5-5.1)
[2024-04-29 12:46] LABS: ALBUMIN 3.6 g/dl (3.4-5.0)
[2024-04-29 12:47] LABS: BLOOD UREA NITROGEN 29.3 mg/dL (7-18); CALCIUM 9.2 mg/dL (8.5-10.1)
[2024-04-29 12:50] LABS: CREATININE 1.3 mg/dL (0.55-1.3)
[2024-04-29 12:51] LABS: BILIRUBIN,TOTAL 0.5 mg/dL (0.2-1); TOT PROT 7.1 g/dl (6.4-8.2)
[2024-04-29] MEDS ORDERED: ALBUTEROL SO4 0.083% IH SOL 2.5 MG/3 ML VIAL.NEB. NEB ONE (12:55)
[2024-04-29] MEDS: FUROSEMIDE 40 MG/4 ML INJECTABLE VIAL IVPUSH ONE (12:55)
[2024-04-29] MEDS: ALBUTEROL SO4 0.083% IH SOL 2.5 MG/3 ML VIAL.NEB. NEB ONE (12:55)
[2024-04-29] MEDS ORDERED: FUROSEMIDE 40 MG/4 ML INJECTABLE VIAL ONE (12:55)
[2024-04-29 13:02] LABS: PH,URINE 5.5 (5.0-8.0); URINE APPEARANCE CLEAR; URINE BILIRUBIN NEGATIVE (NEGATIVE); URINE COLOR YELLOW; URINE GLUCOSE (UA) NEGATIVE (NEGATIVE); URINE KETONE NEGATIVE (NEGATIVE); URINE LEUK ESTERASE NEGATIVE (NEGATIVE); URINE NITRITE NEGATIVE (NEGATIVE); URINE PROTEIN NEGATIVE (NEGATIVE); URINE UROBILINOGEN 0.2 mg/dL (0.2-1.0)
[2024-04-29 13:19] LABS: N-TERMINAL BNP 742.9 pg/ml (5-450)
[2024-04-29] MEDS ORDERED: PIPERACILLIN/TAZOB 4.5 GM 4.5 GM/100 ML BAG IVPB ONE (13:19)
[2024-04-29] MEDS: PIPERACILLIN/TAZOB 4.5 GM 4.5 GM in DEXTROSE 5%-WATER 100 ML IVPB ONE (13:19)
[2024-04-29] MEDS ORDERED: guaiFENesin/D-METHORPHAN HB 10 ML UNIT-DOSE CUPS PO PRN (13:54)
[2024-04-29] MEDS ORDERED: ACETAMINOPHEN 325 MG TABLET (FP) PO PRN (16:13)
[2024-04-29] MEDS: INSULIN ASPART SLIDING SCALE (NOVOLOG) 1 VIAL SQ SCH (16:59)
[2024-04-29] MEDS: methylPREDNISolone NA SUCC 125 MG/2 ML VIAL IVPB SCH (17:57)
[2024-04-29] MEDS: BUDESONIDE 0.5 MG/2 ML INH SUSP VIAL NEB SCH (19:50)
[2024-04-29] MEDS ORDERED: INSULIN (NOVOLOG) ASPART 100 UNITS/ML 10ML VIAL ONE (21:57)
[2024-04-29] MEDS ORDERED: PATIENT'S OWN MEDICATION (NON-FORMULARY) (Mirabegron [Myrbetriq] 50 MG Tab.Er.24h) PO SCH (22:00)
[2024-04-29] MEDS: CARVEDILOL 12.5 MG TABLET (FP) PO SCH (22:16)
[2024-04-29] MEDS: LACTOBACILLUS ACIDOPHILUS 1 TABLET PO SCH (22:16)
[2024-04-29] MEDS: MELATONIN 5 MG TABLETS PO SCH (22:16)
[2024-04-29] MEDS: HEPARIN NA (PORCINE) 5,000 UNITS/ML 1ML VIAL SQ SCH (22:16)
[2024-04-29] MEDS: AMMONIUM LACTATE 12% LOTION 225 GM BOTTLE TP SCH (22:17)
[2024-04-29] MEDS: LATANOPROST 0.005% OPHTH SOLN 2.5ML BOTTLE OU SCH (22:18)
[2024-04-30] MEDS ORDERED: INSULIN (NOVOLOG) ASPART 100 UNITS/ML 10ML VIAL ONE ×3 (05:17→16:57)
[2024-04-30 07:40] LABS: POTASSIUM 3.9 mmol/L (3.5-5.1)
[2024-04-30 07:48] LABS: HEMATOCRIT 37.5 % (35.4-49); HEMOGLOBIN 12.5 GM/dL (11.7-16.9); MCH 30.6 pg (25.7-33.7); MCHC 33.2 g/dl (32.0-35.9); MEAN CELL VOLUME 92.2 fl (80-96); PLATELET COUNT 200 10^3/uL (134-434); RBC 4.07 M/mm3 (4.00-5.60); RDW 14.1 % (11.9-15.9); WHITE BLOOD COUNT 14.8 K/mm3 (4.0-10.0)
[2024-04-30 07:50] LABS: BILIRUBIN,TOTAL 0.5 mg/dL (0.2-1)
[2024-04-30 07:51] LABS: TOT PROT 6.6 g/dl (6.4-8.2)
[2024-04-30 07:52] LABS: ALBUMIN 3.1 g/dl (3.4-5.0); BLOOD UREA NITROGEN 33.5 mg/dL (7-18); CREATININE 1.4 mg/dL (0.55-1.3)
[2024-04-30 07:54] LABS: MAGNESIUM 2.1 mg/dL (1.8-2.4)
[2024-04-30 07:55] LABS: CALCIUM 8.8 mg/dL (8.5-10.1)
[2024-04-30] MEDS: TAMSULOSIN HCL 0.4 MG CAP PO SCH (08:40)
[2024-04-30 08:59] LABS: ANISOCYTOSIS 0; MACROCYTOSIS 0
[2024-04-30] MEDS: AZITHROMYCIN IVPB 500 MG/250 ML BAG IVPB SCH (10:53)
[2024-04-30] MEDS: DOCUSATE SODIUM 100 MG CAPSULE (FP) PO SCH (10:53)
[2024-04-30] MEDS: amLODIPine BESYLATE 5 MG TABLET (FP) PO SCH (10:54)
[2024-04-30] MEDS: POLYETHYLENE GLYCOL (HEALTHYLAX) 3350 17 GM PACKET PO SCH (10:54)
[2024-04-30] MEDS: POTASSIUM CHLORIDE TABS 10 MEQ TABLET.ER (FP) PO SCH (10:54)
[2024-04-30] MEDS: ESCITALOPRAM OXALATE 10 MG TABLET PO SCH (10:54)
[2024-04-30] MEDS: MEMANTINE HCL 5 MG TABLET (UD) PO SCH (10:54)
[2024-04-30] MEDS: MULTIVITAMINS (DAILY MVI) TABLET (FP) PO SCH (10:54)
[2024-04-30] MEDS: FAMOTIDINE 20 MG TABLET PO SCH (10:54)
[2024-04-30] MEDS: INSULIN (LEVEMIR) 100 UNITS/ML UNITS SQ SCH (10:55)
[2024-04-30] MEDS: FUROSEMIDE 40 MG/4 ML INJECTABLE VIAL IVPUSH SCH (10:55)
[2024-04-30] MEDS: INSULIN (LEVEMIR) 100 UNITS/ML UNITS SQ ONE (18:54)
[2024-04-30] MEDS ORDERED: INSULIN (NOVOLOG) ASPART 100 UNITS/ML 10ML VIAL SQ ONE (19:00)
[2024-04-30] MEDS: INSULIN (NOVOLOG) ASPART 100 UNITS/ML 10ML VIAL SQ ONE ×2 (19:15→21:57)
[2024-05-01] MEDS: CHOLECALCIFEROL (VIT D3) 1,000 UNIT (25 MCG) TABLET PO SCH (09:35)
[2024-05-01] MEDS ORDERED: INSULIN (NOVOLOG) ASPART 100 UNITS/ML 10ML VIAL ONE ×2 (11:15→22:19)
[2024-05-01] MEDS: POLYETHYLENE GLYCOL (HEALTHYLAX) 3350 17 GM PACKET PO SCH (22:08)
[2024-05-01] MEDS: methylPREDNISolone NA SUCC 40 MG/1 ML VIAL IVPB SCH (22:18)
[2024-05-01] MEDS: INSULIN (NOVOLOG) ASPART 100 UNITS/ML 10ML VIAL SQ ONE (22:21)
[2024-05-02] MEDS: INSULIN (LEVEMIR) 100 UNITS/ML UNITS SQ ONE (11:30)
[2024-05-02] MEDS ORDERED: INSULIN (NOVOLOG) ASPART 100 UNITS/ML 10ML VIAL ONE ×2 (16:33→21:33)
[2024-05-02] MEDS: INSULIN (LEVEMIR) 100 UNITS/ML UNITS SQ SCH (21:45)
[2024-05-03 10:58] LABS: HEMOGLOBIN 12.8 GM/dL (11.7-16.9); LYMPH % 13.5 % (8-40); MCH 30.8 pg (25.7-33.7); MCHC 33.8 g/dl (32.0-35.9); MEAN CELL VOLUME 91.3 fl (80-96); MEAN PLT VOLUME 8.2 fl (7.5-11.1); MONO % 7.6 % (3.8-10.2); NEUT % 78.9 % (42.8-82.8); PLATELET COUNT 202 10^3/uL (134-434); RBC 4.17 M/mm3 (4.00-5.60); RDW 14.3 % (11.9-15.9); WHITE BLOOD COUNT 7.9 K/mm3 (4.0-10.0)
[2024-05-03 11:48] LABS: POTASSIUM 4.3 mmol/L (3.5-5.1)
[2024-05-03 11:49] LABS: ALBUMIN 3.2 g/dl (3.4-5.0)
[2024-05-03 11:50] LABS: BLOOD UREA NITROGEN 43.2 mg/dL (7-18)
[2024-05-03 11:53] LABS: CREATININE 1.3 mg/dL (0.55-1.3)
[2024-05-03 11:55] LABS: BILIRUBIN,TOTAL 0.6 mg/dL (0.2-1); TOT PROT 6.4 g/dl (6.4-8.2)
[2024-05-03 15:21] VITALS: BMI 42.2
[2024-05-03] MEDS: INSULIN (NOVOLOG) ASPART 100 UNITS/ML 10ML VIAL SQ ONE (17:09)
[2024-05-03] MEDS: methylPREDNISolone NA SUCC 40 MG/1 ML VIAL IVPB SCH (22:55)
[2024-05-04] MEDS ORDERED: ALBUTEROL SO4 2.5/IPRATROPIUM 0.5 INH SOL 3 ML VIAL.NEB. NEB PRN (12:02)
[2024-05-04 13:13] LABS: ARTERIAL BLD GAS O2 SATURATION 95.6 % (95-98); ARTERIAL BLOOD GAS BASE EXCESS 5.6 mmol/L (-2-2); ARTERIAL BLOOD GAS PO2 77.1 mmHg (80-100); ARTERIAL BLOOD GAS pH 7.432 (7.350-7.450)
[2024-05-04 13:16] LABS: ALLENS TEST POSITIVE
[2024-05-04] MEDS ORDERED: SIMETHICONE 80 MG TAB.CHEW (FP) PO PRN (13:21)
[2024-05-04] MEDS: INSULIN (NOVOLOG) ASPART 100 UNITS/ML 10ML VIAL SQ ONE (22:54)
[2024-05-05 01:58] VITALS: RESP 18
[2024-05-05] MEDS ORDERED: INSULIN ASPART SLIDING SCALE (NOVOLOG) 1 VIAL SQ ONE (21:07)
[2024-05-05 22:53] VITALS: BP 126/54; PULSE 56; TEMP 98.3
== END 2024-05-05 22:00 | DRG 291 ==
LOC: JER 11:19 → JERBED 13:47 → J7W 15:37
PROVIDERS: ADMIT Internal Medicine; ATTEND Internal Medicine
DX: I11.0 Hypertensive heart disease with heart failure (principal); I50.33 Acute on chronic diastolic (congestive) heart failure; J44.1 Chronic obstructive pulmonary disease with (acute) exacerbation; G47.33 Obstructive sleep apnea (adult) (pediatric); E78.5 Hyperlipidemia, unspecified; N40.0 Benign prostatic hyperplasia without lower urinary tract symptoms; E11.51 Type 2 diabetes mellitus with diabetic peripheral angiopathy without gangrene; Z79.4 Long term (current) use of insulin
CPT/HCPCS: 0241U-QW; 36415; 36600; 70450-TC; 71045-TC-FY; 71275-TC; 74018-TC-FY; 80053; 80061; 81003; 82803; 82962; 83036; 83690; 83735; 83880; 84443; 84484; 85025; 85027; 85610; 85730; 86850; 86900; 86901; 87040; 87086; 87635; 93005; 93010; 93306-TC; 94640; 97116-GP; 97162-GP; 99285-25; J0131; J1644; Q9967

== ENCOUNTER 2024-11-05 12:12 | Inpatient (IN) | payer OTHER ==
[2024-11-05 13:24] LABS: VENOUS BASE EXCESS 7.1 mmol/L (-2-2); VENOUS O2 SATURATION 52.9 % (70-80); VENOUS PCO2 57.6 mmHg (38-52); VENOUS PH 7.391 (7.310-7.410)
[2024-11-05 13:35] LABS: BASO % 0.2 % (0-2.0); EOS % 0.2 % (0-4.5); HEMATOCRIT 42.9 % (35.4-49); HEMOGLOBIN 14.1 GM/dL (11.7-16.9); LYMPH % 5.6 % (8-40); MCH 30.2 pg (25.7-33.7); MCHC 32.9 g/dl (32.0-35.9); MEAN CELL VOLUME 91.9 fl (80-96); MEAN PLT VOLUME 7.9 fl (7.5-11.1); MONO % 4.9 % (3.8-10.2); NEUT % 89.1 % (42.8-82.8); PLATELET COUNT 147 10^3/uL (134-434); RBC 4.67 M/mm3 (4.00-5.60); RDW 14.2 % (11.9-15.9); WHITE BLOOD COUNT 18.6 K/mm3 (4.0-10.0)
[2024-11-05] MEDS ORDERED: PIPERACILLIN/TAZOB 4.5 GM 4.5 GM/100 ML BAG IVPB ONE (13:51)
[2024-11-05] MEDS ORDERED: AZITHROMYCIN IVPB 500 MG/250 ML BAG IVPB ONE (13:51)
[2024-11-05] MEDS ORDERED: VANCOMYCIN 1 GM PREMIX (F) 1 GM/200 ML BAG ONE (13:51)
[2024-11-05] MEDS ORDERED: ACETAMINOPHEN INJECTION 100 ML ONE (13:58)
[2024-11-05 14:01] LABS: POTASSIUM 3.7 mmol/L (3.5-5.1)
[2024-11-05 14:02] LABS: ALBUMIN 3.5 g/dl (3.4-5.0); MAGNESIUM 2.2 mg/dL (1.8-2.4)
[2024-11-05] MEDS: ACETAMINOPHEN 1000 MG/100 ML BAG IVPB ONE (14:02)
[2024-11-05] MEDS: PIPERACILLIN/TAZOB 4.5 GM 4.5 GM in DEXTROSE 5%-WATER 100 ML IVPB ONE (14:05)
[2024-11-05 14:06] LABS: CREATININE 1.7 mg/dL (0.55-1.3)
[2024-11-05 14:08] LABS: BILIRUBIN,TOTAL 1.2 mg/dL (0.2-1); TOT PROT 6.7 g/dl (6.4-8.2)
[2024-11-05 14:14] LABS: INR 1.05 (0.83-1.09); PROTHROMBIN TIME (PATIENT) 12.1 SEC (9.7-13.0)
[2024-11-05] MEDS: AZITHROMYCIN IVPB 500 MG in DEXTROSE 5%-WATER - 250 ML IVPB ONE (14:14)
[2024-11-05] MEDS ORDERED: FUROSEMIDE 40 MG/4 ML INJECTABLE VIAL ONE (14:53)
[2024-11-05] MEDS: FUROSEMIDE 40 MG/4 ML INJECTABLE VIAL IVPUSH ONE (14:57)
[2024-11-05] MEDS: VANCOMYCIN 1 GM PREMIX (F) 1 GM/200 ML BAG IVPB ONE (15:20)
[2024-11-05] MEDS: BUDESONIDE 0.5 MG/2 ML INH SUSP VIAL NEB SCH (16:32)
[2024-11-05] MEDS: INSULIN ASPART SLIDING SCALE (NOVOLOG) 1 VIAL SQ SCH (17:05)
[2024-11-05] MEDS ORDERED: BUDESONIDE 0.5 MG/2 ML INH SUSP VIAL NEB SCH (18:00)
[2024-11-05 18:12] VITALS: BMI 61.4
[2024-11-05 20:13] LABS: URINE APPEARANCE CLEAR; URINE BILIRUBIN NEGATIVE (NEGATIVE); URINE COLOR YELLOW; URINE GLUCOSE (UA) NEGATIVE (NEGATIVE); URINE KETONE NEGATIVE (NEGATIVE); URINE LEUK ESTERASE 2+ (NEGATIVE); URINE NITRITE NEGATIVE (NEGATIVE); URINE PROTEIN NEGATIVE (NEGATIVE); URINE UROBILINOGEN 0.2 mg/dL (0.2-1.0)
[2024-11-05 21:10] LABS: EPI CELLS 17.6 /uL (0-25.1); HYALINE CASTS 0.68 /uL (0-3.1); URINE BACTERIA 11.3 /uL (0-1359); URINE RBC 8.3 /uL (0-23.9); URINE WBC 59.3 /uL (0-25.8)
[2024-11-05] MEDS ORDERED: PATIENT'S OWN MEDICATION (NON-FORMULARY) (Mirabegron [Myrbetriq] 50 MG Tab.Er.24h) PO SCH (22:00)
[2024-11-05] MEDS: MELATONIN 5 MG TABLETS PO SCH (22:33)
[2024-11-05] MEDS: LACTOBACILLUS ACIDOPHILUS 1 TABLET PO SCH (22:34)
[2024-11-05] MEDS: CARVEDILOL 12.5 MG TABLET (FP) PO SCH (22:34)
[2024-11-05] MEDS: HEPARIN NA (PORCINE) 5,000 UNITS/ML 1ML VIAL SQ SCH (22:35)
[2024-11-05] MEDS: INSULIN (LEVEMIR) 100 UNITS/ML UNITS SQ SCH (22:35)
[2024-11-05] MEDS: GABAPENTIN 100 MG CAPSULE PO SCH (22:39)
[2024-11-05] MEDS: LATANOPROST 0.005% OPHTH SOLN 2.5ML BOTTLE OU SCH (22:40)
[2024-11-05] MEDS: AMMONIUM LACTATE 12% LOTION 225 GM BOTTLE TP SCH (22:41)
[2024-11-06 08:15] LABS: POTASSIUM 3.1 mmol/L (3.5-5.1)
[2024-11-06 08:17] LABS: CALCIUM 8.8 mg/dL (8.5-10.1)
[2024-11-06 08:18] LABS: BLOOD UREA NITROGEN 47.5 mg/dL (7-18)
[2024-11-06 08:21] LABS: CREATININE 1.9 mg/dL (0.55-1.3)
[2024-11-06 08:22] LABS: BILIRUBIN,TOTAL 0.9 mg/dL (0.2-1); TOT PROT 5.9 g/dl (6.4-8.2)
[2024-11-06 08:39] LABS: ALBUMIN 2.7 g/dl (3.4-5.0)
[2024-11-06 09:04] LABS: BASO % 0.1 % (0-2.0); EOS % 0.5 % (0-4.5); HEMATOCRIT 38.3 % (35.4-49); HEMOGLOBIN 12.3 GM/dL (11.7-16.9); LYMPH % 8.6 % (8-40); MCHC 32.1 g/dl (32.0-35.9); MEAN CELL VOLUME 93.5 fl (80-96); MEAN PLT VOLUME 8.6 fl (7.5-11.1); MONO % 5.3 % (3.8-10.2); NEUT % 85.5 % (42.8-82.8); PLATELET COUNT 138 10^3/uL (134-434); RBC 4.09 M/mm3 (4.00-5.60); RDW 14.1 % (11.9-15.9); WHITE BLOOD COUNT 17.8 K/mm3 (4.0-10.0)
[2024-11-06] MEDS ORDERED: PATIENT'S OWN MEDICATION (NON-FORMULARY) (Beta-Carotene(A) W-C And E/Min 1 TAB Tablet) PO SCH (10:00)
[2024-11-06] MEDS ORDERED: PATIENT'S OWN MEDICATION (NON-FORMULARY) (Cholecalciferol (Vitamin D3) [Vitamin D3] 1,250 PO SCH (10:00)
[2024-11-06] MEDS: TAMSULOSIN HCL 0.4 MG CAP PO SCH (10:20)
[2024-11-06] MEDS: DOCUSATE SODIUM 100 MG CAPSULE (FP) PO SCH (10:21)
[2024-11-06] MEDS: MULTIVITAMINS (DAILY MVI) TABLET (FP) PO SCH (10:21)
[2024-11-06] MEDS: ESCITALOPRAM OXALATE 10 MG TABLET PO SCH (10:21)
[2024-11-06] MEDS: ASCORBIC ACID 500 MG TABLET (FP) PO SCH (10:21)
[2024-11-06] MEDS: POLYETHYLENE GLYCOL (HEALTHYLAX) 3350 17 GM PACKET PO SCH (10:21)
[2024-11-06] MEDS: MEMANTINE HCL 5 MG TABLET (UD) PO SCH (10:21)
[2024-11-06] MEDS: FAMOTIDINE 20 MG TABLET PO SCH (10:21)
[2024-11-06] MEDS: PIPERACILLIN/TAZOB 2.25 GM 2.25 GM in DEXTROSE 5%-WATER - 50 ML IVPB SCH (10:22)
[2024-11-06] MEDS: KCL 10 MEQ IVPB 10 MEQ/100 ML INFUS.BAG IVPB SCH (12:46)
[2024-11-06] MEDS: ALBUTEROL SO4 2.5/IPRATROPIUM 0.5 INH SOL 3 ML VIAL.NEB. NEB SCH (14:53)
[2024-11-06] MEDS: guaiFENesin 200 MG/10 ML 10 ML UNIT-DOSE CUPS PO PRN (15:06)
[2024-11-06] MEDS: FUROSEMIDE 40 MG/4 ML INJECTABLE VIAL IVPUSH SCH (15:06)
[2024-11-06] MEDS: BUDESONIDE 0.5 MG/2 ML INH SUSP VIAL NEB SCH (20:23)
[2024-11-07 08:27] LABS: BASO % 0.2 % (0-2.0); HEMATOCRIT 35.7 % (35.4-49); HEMOGLOBIN 11.9 GM/dL (11.7-16.9); LYMPH % 13.3 % (8-40); MCH 30.3 pg (25.7-33.7); MCHC 33.2 g/dl (32.0-35.9); MEAN CELL VOLUME 91.1 fl (80-96); MEAN PLT VOLUME 8.4 fl (7.5-11.1); MONO % 7.4 % (3.8-10.2); NEUT % 77.1 % (42.8-82.8); PLATELET COUNT 131 10^3/uL (134-434); RBC 3.92 M/mm3 (4.00-5.60); RDW 14.1 % (11.9-15.9); WHITE BLOOD COUNT 11.6 K/mm3 (4.0-10.0)
[2024-11-07 08:38] LABS: POTASSIUM 3.6 mmol/L (3.5-5.1)
[2024-11-07 08:50] LABS: BILIRUBIN,TOTAL 0.6 mg/dL (0.2-1); TOT PROT 5.8 g/dl (6.4-8.2)
[2024-11-07 08:51] LABS: ALBUMIN 2.6 g/dl (3.4-5.0); CALCIUM 8.7 mg/dL (8.5-10.1)
[2024-11-07 08:52] LABS: BLOOD UREA NITROGEN 52.2 mg/dL (7-18); MAGNESIUM 2.2 mg/dL (1.8-2.4)
[2024-11-07 08:57] LABS: CREATININE 1.8 mg/dL (0.55-1.3)
[2024-11-07] MEDS: ACETAMINOPHEN 325 MG TABLET (FP) PO PRN (10:04)
[2024-11-07] MEDS: FUROSEMIDE 40 MG/4 ML INJECTABLE VIAL IVPUSH SCH (15:30)
[2024-11-07] MEDS: PIPERACILLIN/TAZOB 2.25 GM 2.25 GM/50 ML BAG IVPB SCH (17:26)
[2024-11-07] MEDS: INSULIN (LEVEMIR) 100 UNITS/ML UNITS SQ SCH (21:52)
[2024-11-08 08:41] LABS: POTASSIUM 3.7 mmol/L (3.5-5.1)
[2024-11-08 08:43] LABS: CALCIUM 8.8 mg/dL (8.5-10.1)
[2024-11-08 08:44] LABS: BLOOD UREA NITROGEN 47.3 mg/dL (7-18)
[2024-11-08 08:47] LABS: CREATININE 1.6 mg/dL (0.55-1.3)
[2024-11-09] MEDS ORDERED: INSULIN ASPART SLIDING SCALE (NOVOLOG) 1 VIAL SQ ONE (16:48)
[2024-11-09 17:40] VITALS: RESP 16
[2024-11-09 20:30] VITALS: BP 117/54; PULSE 61; TEMP 99.1
== END 2024-11-09 20:50 | DRG 291 ==
LOC: JER 12:12 → JERBED 14:25 → J4S 15:32
PROVIDERS: ADMIT Internal Medicine; ATTEND Internal Medicine
DX: I11.0 Hypertensive heart disease with heart failure (principal); I50.33 Acute on chronic diastolic (congestive) heart failure; J18.9 Pneumonia, unspecified organism; J44.1 Chronic obstructive pulmonary disease with (acute) exacerbation; F03.90 Unspecified dementia, unspecified severity, without behavioral disturbance, psychotic disturbance, mood disturbance, and anxiety; E78.5 Hyperlipidemia, unspecified; K21.9 Gastro-esophageal reflux disease without esophagitis; E11.9 Type 2 diabetes mellitus without complications; N40.0 Benign prostatic hyperplasia without lower urinary tract symptoms
CPT/HCPCS: 0241U-QW; 36415; 71045-TC-FY; 76700-TC; 80048; 80053; 81003; 82803; 82962; 83036; 83605; 83735; 83880; 84484; 85025; 85610; 86850; 86900; 86901; 87040; 87086; 87635; 87899; 93005; 93010; 94640; 97116-GP; 97161-GP; 99291; J0131; J1644

== ENCOUNTER 2024-12-29 13:42 | Inpatient (IN) | payer OTHER ==
[2024-12-29 14:30] LABS: INR 1.23 (0.83-1.09); PROTHROMBIN TIME (PATIENT) 13.9 SEC (9.7-13.0)
[2024-12-29 14:40] LABS: HEMATOCRIT 35.7 % (35.4-49); HEMOGLOBIN 11.7 G/dL (11.7-16.9); MCH 29.9 pg (25.7-33.7); MCHC 32.8 g/dl (32.0-35.9); MEAN CELL VOLUME 91.2 fl (80-96); MEAN PLT VOLUME 8.1 fl (7.5-11.1); PLATELET COUNT 187.4 10^3/uL (134-434); RBC 3.91 10^6/uL (4.00-5.60); RDW 15.4 % (11.9-15.9); WHITE BLOOD COUNT 24.1 10^3/uL (4.0-10.8)
[2024-12-29 14:42] LABS: ALBUMIN 3.2 g/dl (3.4-5.0); BILIRUBIN,TOTAL 0.9 mg/dl (0.2-1); CALCIUM 8.6 mg/dl (8.5-10.1); CREATININE 2.9 mg/dl (0.6-1.3); POTASSIUM 4.1 mmol/L (3.5-5.1); TOT PROT 5.6 g/dl (6.4-8.2)
[2024-12-29] MEDS ORDERED: ACETAMINOPHEN INJECTION 100 ML ONE (14:42)
[2024-12-29] MEDS ORDERED: ALBUTEROL SO4 2.5/IPRATROPIUM 0.5 INH SOL 3 ML VIAL.NEB. NEB ONE ×2 (14:42→22:07)
[2024-12-29 14:53] LABS: PLATELET ESTIMATE ADEQUATE
[2024-12-29 14:58] LABS: VENOUS BASE EXCESS 4.1 mmol/L (-2-2); VENOUS O2 SATURATION 98.4 % (70-80); VENOUS PCO2 45.1 mmHg (38-52); VENOUS PH 7.427 (7.310-7.410)
[2024-12-29] MEDS: SODIUM CHLORIDE 500 ML IV STA (14:59)
[2024-12-29] MEDS: ALBUTEROL SO4 2.5/IPRATROPIUM 0.5 INH SOL 3 ML VIAL.NEB. NEB ONE (14:59)
[2024-12-29] MEDS: ACETAMINOPHEN 1000 MG/100 ML BAG IVPB ONE (15:02)
[2024-12-29] MEDS ORDERED: PIPERACILLIN/TAZOBACTAM 4.5 GM VIAL IVPB ONE (15:37)
[2024-12-29] MEDS: PIPERACILLIN/TAZOB 4.5 GM 4.5 GM in DEXTROSE 5%-WATER 100 ML IVPB ONE (15:46)
[2024-12-29] MEDS ORDERED: VANCOMYCIN 1,000 MG VIAL (RESTRICTED TO ID ONLY) ONE (16:17)
[2024-12-29] MEDS: VANCOMYCIN 2,000 MG in DEXTROSE 5%-WATER - 250 ML IVPB ONE (17:40)
[2024-12-29] MEDS ORDERED: NOREPINEPHRINE BITARTRATE 4 MG/4 ML ML IV ONE ×4 (21:09→21:50)
[2024-12-29] MEDS: NOREPINEPHRINE BITARTRATE 4,000 MCG in DEXTROSE 5%-WATER - 496 ML IV SCH (21:15)
[2024-12-29] MEDS ORDERED: PANTOPRAZOLE SODIUM 40 MG VIAL ONE (22:07)
[2024-12-29] MEDS: ALBUTEROL SO4 2.5/IPRATROPIUM 0.5 INH SOL 3 ML VIAL.NEB. NEB SCH (22:12)
[2024-12-29] MEDS: PANTOPRAZOLE SODIUM 40 MG VIAL IVPUSH SCH (22:12)
[2024-12-29 23:13] LABS: N-TERMINAL BNP 4352.1 pg/ml (5-450)
[2024-12-30] MEDS: LACTATED RINGERS SOLUTION 1,000 ML/1,000 ML INFUS.BAG IV SCH (01:58)
[2024-12-30] MEDS: INSULIN ASPART SLIDING SCALE (NOVOLOG) 1 VIAL SQ SCH (01:59)
[2024-12-30] MEDS: NOREPINEPHRINE 0.9 % NACL 8 MG/250 ML BAG IVPB SCH (01:59)
[2024-12-30] MEDS: PIPERACILLIN/TAZOB 2.25 GM 2.25 GM in DEXTROSE 5%-WATER - 50 ML IVPB SCH (02:00)
[2024-12-30 06:13] LABS: ARTERIAL BLD GAS O2 SATURATION 99.3 % (95-98); ARTERIAL BLOOD GAS BASE EXCESS -0.2 mmol/L (-2-2); ARTERIAL BLOOD GAS PO2 200.2 mmHg (80-100); ARTERIAL BLOOD GAS pH 7.323 (7.350-7.450)
[2024-12-30 06:45] LABS: ALLENS TEST POSITIVE
[2024-12-30 07:07] LABS: HEMATOCRIT 31.8 % (35.4-49); MCH 28.7 pg (25.7-33.7); MCHC 31.4 g/dl (32.0-35.9); MEAN CELL VOLUME 91.5 fl (80-96); MEAN PLT VOLUME 8.3 fl (7.5-11.1); PLATELET COUNT 185 10^3/uL (134-434); RBC 3.48 M/mm3 (4.00-5.60); RDW 15.6 % (11.9-15.9); WHITE BLOOD COUNT 23.4 K/mm3 (4.0-10.0)
[2024-12-30 07:24] LABS: POTASSIUM 3.9 mmol/L (3.5-5.1)
[2024-12-30 07:30] LABS: CALCIUM 7.8 mg/dL (8.5-10.1)
[2024-12-30 07:31] LABS: ALBUMIN 2.1 g/dl (3.4-5.0); BLOOD UREA NITROGEN 79.7 mg/dL (7-18); MAGNESIUM 2.2 mg/dL (1.8-2.4)
[2024-12-30 07:33] LABS: CREATININE 3.7 mg/dL (0.55-1.3)
[2024-12-30 07:34] LABS: BILIRUBIN,TOTAL 0.6 mg/dL (0.2-1); PHOSPHOROUS 5.7 mg/dL (2.5-4.9); TOT PROT 5.2 g/dl (6.4-8.2)
[2024-12-30 07:46] LABS: INR 1.25 (0.83-1.09); PROTHROMBIN TIME (PATIENT) 13.6 SEC (9.7-13.0)
[2024-12-30 07:49] LABS: ACTIVATED PTT 28.5 SECONDS (25.2-36.5)
[2024-12-30 09:17] LABS: ANISOCYTOSIS 0; MACROCYTOSIS 0
[2024-12-30] MEDS: ACETAMINOPHEN 1000 MG/100 ML BAG IVPB PRN (09:20)
[2024-12-30] MEDS: LACTATED RINGERS SOLUTION 1,000 ML/1,000 ML INFUS.BAG IV STA (10:34)
[2024-12-30] MEDS: MUPIROCIN 2% TOPICAL OINTMENT FOR DECOLONIZATION NS SCH (10:51)
[2024-12-30] MEDS ORDERED: FENTANYL CITRATE/PF 50 MCG/ML VIAL ONE (11:44)
[2024-12-30] MEDS: FENTANYL CITRATE/PF 50 MCG/ML VIAL IVPUSH ONE (11:47)
[2024-12-30] MEDS: ACETAMINOPHEN 1000 MG/100 ML BAG IVPB ONE (13:25)
[2024-12-30] MEDS: VASopressin 40 UNITS/100 ML BAG IV SCH (18:20)
[2024-12-30] MEDS: CHLORHEXIDINE GLUCONATE 4% CLEANSER FOR DECOLONIZATION TP SCH (21:34)
[2024-12-30] MEDS: PIPERACILLIN/TAZOB 4.5 GM 4.5 GM/100 ML BAG IVPB SCH (21:34)
[2024-12-31] MEDS: PIPERACILLIN/TAZOB 2.25 GM 2.25 GM in DEXTROSE 5%-WATER - 50 ML IVPB SCH (07:24)
[2024-12-31 07:29] LABS: BASO % 0.2 % (0-2.0); EOS % 1.3 % (0-4.5); HEMATOCRIT 30.4 % (35.4-49); HEMOGLOBIN 9.8 GM/dL (11.7-16.9); MCH 29.3 pg (25.7-33.7); MCHC 32.1 g/dl (32.0-35.9); MEAN CELL VOLUME 91.1 fl (80-96); MEAN PLT VOLUME 8.6 fl (7.5-11.1); MONO % 5.9 % (3.8-10.2); NEUT % 86.6 % (42.8-82.8); PLATELET COUNT 160 10^3/uL (134-434); RBC 3.33 M/mm3 (4.00-5.60); RDW 15.7 % (11.9-15.9); WHITE BLOOD COUNT 14.4 K/mm3 (4.0-10.0)
[2024-12-31 07:50] LABS: POTASSIUM 4.4 mmol/L (3.5-5.1)
[2024-12-31 08:02] LABS: ALBUMIN 1.9 g/dl (3.4-5.0); CALCIUM 7.9 mg/dL (8.5-10.1)
[2024-12-31 08:03] LABS: BLOOD UREA NITROGEN 92.6 mg/dL (7-18); MAGNESIUM 2.4 mg/dL (1.8-2.4)
[2024-12-31 08:06] LABS: CREATININE 3.8 mg/dL (0.55-1.3)
[2024-12-31 08:07] LABS: BILIRUBIN,TOTAL 0.5 mg/dL (0.2-1); PHOSPHOROUS 6.1 mg/dL (2.5-4.9)
[2024-12-31 08:09] LABS: TOT PROT 4.8 g/dl (6.4-8.2)
[2024-12-31] MEDS: HEPARIN NA (PORCINE) 5,000 UNITS/ML 1ML VIAL SQ SCH (13:49)
[2024-12-31 16:07] VITALS: BMI 40.5
[2024-12-31] MEDS: ACETAMINOPHEN 1000 MG/100 ML BAG IVPB PRN (23:02)
[2025-01-01 07:06] LABS: BASO % 0.4 % (0-2.0); HEMOGLOBIN 9.7 GM/dL (11.7-16.9); LYMPH % 6.7 % (8-40); MCH 29.6 pg (25.7-33.7); MCHC 32.4 g/dl (32.0-35.9); MEAN CELL VOLUME 91.2 fl (80-96); MEAN PLT VOLUME 8.5 fl (7.5-11.1); MONO % 7.4 % (3.8-10.2); NEUT % 84.5 % (42.8-82.8); PLATELET COUNT 183 10^3/uL (134-434); RBC 3.29 M/mm3 (4.00-5.60); RDW 15.8 % (11.9-15.9); WHITE BLOOD COUNT 12.7 K/mm3 (4.0-10.0)
[2025-01-01 07:24] LABS: POTASSIUM 3.8 mmol/L (3.5-5.1)
[2025-01-01 07:27] LABS: CALCIUM 7.7 mg/dL (8.5-10.1)
[2025-01-01 07:28] LABS: ALBUMIN 1.8 g/dl (3.4-5.0); BLOOD UREA NITROGEN 100.2 mg/dL (7-18); MAGNESIUM 2.3 mg/dL (1.8-2.4)
[2025-01-01 07:31] LABS: CREATININE 4.1 mg/dL (0.55-1.3); PHOSPHOROUS 5.7 mg/dL (2.5-4.9)
[2025-01-01 07:32] LABS: BILIRUBIN,TOTAL 0.5 mg/dL (0.2-1); TOT PROT 4.8 g/dl (6.4-8.2)
[2025-01-01] MEDS: LACTATED RINGERS SOLUTION 1,000 ML/1,000 ML INFUS.BAG IV SCH (13:00)
[2025-01-01] MEDS: ACETAMINOPHEN 1000 MG/100 ML BAG IVPB PRN (17:58)
[2025-01-01] MEDS ORDERED: HYDROmorphone HCl 2 MG/ML VIAL IVPUSH PRN (20:15)
[2025-01-01] MEDS ORDERED: HYDROmorphone HCL CARPU-JECT 2 MG/1 ML DISP.SYRIN ONE (20:26)
[2025-01-01] MEDS: HYDROmorphone HCL CARPU-JECT 2 MG/1 ML DISP.SYRIN IVPUSH PRN (21:13)
[2025-01-01] MEDS: PIPERACILLIN/TAZOB 2.25 GM 2.25 GM/50 ML BAG IVPB SCH (21:18)
[2025-01-02 06:43] LABS: BASO % 0.2 % (0-2.0); EOS % 0.6 % (0-4.5); HEMATOCRIT 29.7 % (35.4-49); HEMOGLOBIN 9.4 GM/dL (11.7-16.9); LYMPH % 4.3 % (8-40); MCH 29.1 pg (25.7-33.7); MCHC 31.7 g/dl (32.0-35.9); MEAN CELL VOLUME 91.8 fl (80-96); MEAN PLT VOLUME 8.5 fl (7.5-11.1); MONO % 7.3 % (3.8-10.2); NEUT % 87.6 % (42.8-82.8); PLATELET COUNT 174 10^3/uL (134-434); RBC 3.23 M/mm3 (4.00-5.60); RDW 15.4 % (11.9-15.9); WHITE BLOOD COUNT 13.2 K/mm3 (4.0-10.0)
[2025-01-02 07:06] LABS: POTASSIUM 3.9 mmol/L (3.5-5.1)
[2025-01-02 07:10] LABS: CALCIUM 7.6 mg/dL (8.5-10.1)
[2025-01-02 07:11] LABS: ALBUMIN 1.8 g/dl (3.4-5.0); BLOOD UREA NITROGEN 103.4 mg/dL (7-18); MAGNESIUM 2.3 mg/dL (1.8-2.4)
[2025-01-02 07:15] LABS: BILIRUBIN,TOTAL 0.5 mg/dL (0.2-1)
[2025-01-02 07:16] LABS: TOT PROT 4.8 g/dl (6.4-8.2)
[2025-01-02] MEDS: ACETAMINOPHEN 1000 MG/100 ML BAG IVPB ONE (21:21)
[2025-01-02] MEDS: HYDROmorphone HCL CARPU-JECT 2 MG/1 ML DISP.SYRIN IVPUSH ONE (23:10)
[2025-01-02] MEDS: DEXMEDETOMIDINE PREMIX 400 MCG/100 ML BAG IVPB SCH (23:10)
[2025-01-03 00:37] LABS: HEMATOCRIT 31.5 % (35.4-49); HEMOGLOBIN 9.9 GM/dL (11.7-16.9); MCH 28.7 pg (25.7-33.7); MCHC 31.4 g/dl (32.0-35.9); MEAN CELL VOLUME 91.4 fl (80-96); MEAN PLT VOLUME 8.2 fl (7.5-11.1); PLATELET COUNT 216 10^3/uL (134-434); RBC 3.44 M/mm3 (4.00-5.60); RDW 15.8 % (11.9-15.9); WHITE BLOOD COUNT 17.5 K/mm3 (4.0-10.0)
[2025-01-03 00:57] LABS: CHLORIDE 107 mmol/L (98-107); POTASSIUM 3.9 mmol/L (3.5-5.1); SODIUM 141 mmol/L (136-145)
[2025-01-03 01:00] LABS: ALBUMIN 1.7 g/dl (3.4-5.0); ANION GAP 7 mmol/L (4-13); CALCIUM 7.4 mg/dL (8.5-10.1); CO2 27 mmol/L (21-32); GLUCOSE,RANDOM 202 mg/dL (74-106); MAGNESIUM 2.3 mg/dL (1.8-2.4)
[2025-01-03 01:03] LABS: CREATININE 4.3 mg/dL (0.55-1.3); SGPT/ALT 27 U/L (13-61)
[2025-01-03 01:04] LABS: PHOSPHOROUS 6.8 mg/dL (2.5-4.9); SGOT/AST 24 U/L (15-37)
[2025-01-03 01:05] LABS: BILIRUBIN,TOTAL 0.5 mg/dL (0.2-1); TOT PROT 4.9 g/dl (6.4-8.2)
[2025-01-03 01:13] LABS: ALK PHOS 133 U/L (45-117); BLOOD UREA NITROGEN 108.8 mg/dL (7-18)
[2025-01-03 07:54] LABS: CALCIUM 7.5 mg/dL (8.5-10.1); POTASSIUM 3.6 mmol/L (3.5-5.1); SODIUM 139 mmol/L (136-145)
[2025-01-03 07:55] LABS: ALBUMIN 1.6 g/dl (3.4-5.0); CO2 26 mmol/L (21-32); GLUCOSE,RANDOM 183 mg/dL (74-106); MAGNESIUM 2.2 mg/dL (1.8-2.4)
[2025-01-03 07:58] LABS: CREATININE 4.2 mg/dL (0.55-1.3); SGOT/AST 26 U/L (15-37); SGPT/ALT 30 U/L (13-61)
[2025-01-03 07:59] LABS: BILIRUBIN,TOTAL 0.4 mg/dL (0.2-1)
[2025-01-03 08:00] LABS: TOT PROT 4.5 g/dl (6.4-8.2)
[2025-01-03 08:01] LABS: ALK PHOS 122 U/L (45-117)
[2025-01-03 08:07] LABS: ANION GAP 6 mmol/L (4-13); BLOOD UREA NITROGEN 107.5 mg/dL (7-18); CHLORIDE 108 mmol/L (98-107)
[2025-01-03 08:10] LABS: HEMATOCRIT 30.8 % (35.4-49); HEMOGLOBIN 9.7 GM/dL (11.7-16.9); MCHC 31.6 g/dl (32.0-35.9); MEAN CELL VOLUME 91.7 fl (80-96); MEAN PLT VOLUME 8.7 fl (7.5-11.1); PLATELET COUNT 212 10^3/uL (134-434); RBC 3.36 M/mm3 (4.00-5.60); WHITE BLOOD COUNT 18.5 K/mm3 (4.0-10.0)
[2025-01-03] MEDS: DEXTROSE 5%-LACTATED RINGERS 1,000 ML IV SCH (10:40)
[2025-01-03] MEDS ORDERED: FENTANYL CITRATE/PF 50 MCG/ML VIAL ONE ×2 (13:39→13:55)
[2025-01-03] MEDS: FENTANYL CITRATE/PF 50 MCG/ML VIAL IVPUSH ONE ×4 (13:43→14:30)
[2025-01-04 07:44] LABS: HEMOGLOBIN 9.2 GM/dL (11.7-16.9); MCH 29.1 pg (25.7-33.7); MCHC 31.6 g/dl (32.0-35.9); MEAN CELL VOLUME 92.1 fl (80-96); MEAN PLT VOLUME 8.5 fl (7.5-11.1); PLATELET COUNT 208 10^3/uL (134-434); RBC 3.15 M/mm3 (4.00-5.60); RDW 15.8 % (11.9-15.9); WHITE BLOOD COUNT 12.3 K/mm3 (4.0-10.0)
[2025-01-04 08:20] LABS: POTASSIUM 3.6 mmol/L (3.5-5.1)
[2025-01-04 08:23] LABS: ALBUMIN 1.6 g/dl (3.4-5.0); BLOOD UREA NITROGEN 100.9 mg/dL (7-18); CALCIUM 7.7 mg/dL (8.5-10.1)
[2025-01-04 08:24] LABS: MAGNESIUM 2.5 mg/dL (1.8-2.4)
[2025-01-04 08:26] LABS: CREATININE 4.6 mg/dL (0.55-1.3)
[2025-01-04 08:27] LABS: PHOSPHOROUS 6.8 mg/dL (2.5-4.9)
[2025-01-04 08:28] LABS: BILIRUBIN,TOTAL 0.4 mg/dL (0.2-1); TOT PROT 4.6 g/dl (6.4-8.2)
[2025-01-04 09:24] LABS: ANISOCYTOSIS 0; MACROCYTOSIS 0
[2025-01-04] MEDS: ACETAMINOPHEN 1000 MG/100 ML BAG IVPB PRN (09:24)
[2025-01-04] MEDS: POTASSIUM CHLORIDE ORAL LIQUID 20 MEQ/15 ML PO ONE (10:09)
[2025-01-04] MEDS: DEXTROSE 5%-LACTATED RINGERS 1,000 ML IV SCH (10:11)
[2025-01-04] MEDS: KCL 20 MEQ PREMIX BAG 20 MEQ/100 ML INFUS.BAG IVPB ONE (10:43)
[2025-01-04] MEDS ORDERED: INSULIN ASPART SLIDING SCALE (NOVOLOG) 1 VIAL SQ ONE (18:30)
[2025-01-05] MEDS: ONDANSETRON 4 MG/2 ML VIAL IVPUSH PRN (05:47)
[2025-01-05 07:42] LABS: HEMATOCRIT 29.5 % (35.4-49); HEMOGLOBIN 9.3 GM/dL (11.7-16.9); MCH 29.2 pg (25.7-33.7); MCHC 31.6 g/dl (32.0-35.9); MEAN CELL VOLUME 92.4 fl (80-96); MEAN PLT VOLUME 8.5 fl (7.5-11.1); PLATELET COUNT 256 10^3/uL (134-434); RBC 3.19 M/mm3 (4.00-5.60); WHITE BLOOD COUNT 10.4 K/mm3 (4.0-10.0)
[2025-01-05 07:58] LABS: POTASSIUM 3.6 mmol/L (3.5-5.1)
[2025-01-05 08:00] LABS: BLOOD UREA NITROGEN 100.8 mg/dL (7-18); CALCIUM 7.6 mg/dL (8.5-10.1); MAGNESIUM 2.4 mg/dL (1.8-2.4)
[2025-01-05 08:01] LABS: ALBUMIN 1.6 g/dl (3.4-5.0)
[2025-01-05 08:03] LABS: CREATININE 4.3 mg/dL (0.55-1.3)
[2025-01-05 08:04] LABS: PHOSPHOROUS 5.3 mg/dL (2.5-4.9)
[2025-01-05 08:05] LABS: BILIRUBIN,TOTAL 0.3 mg/dL (0.2-1); TOT PROT 4.9 g/dl (6.4-8.2)
[2025-01-05 09:01] LABS: ANISOCYTOSIS 0; MACROCYTOSIS 0
[2025-01-05] MEDS: ACETAMINOPHEN 1000 MG/100 ML BAG IVPB PRN ×2 (10:00→22:58)
[2025-01-05] MEDS ORDERED: SIMETHICONE 80 MG TAB.CHEW (FP) PO PRN ×2 (11:50→13:26)
[2025-01-05] MEDS: LACTATED RINGERS SOLUTION 1,000 ML/1,000 ML INFUS.BAG IV SCH ×2 (12:59→22:39)
[2025-01-05] MEDS ORDERED: SIMETHICONE 40 MG/0.6 ML BOTTLE PO PRN (13:16)
[2025-01-05] MEDS: SIMETHICONE 40 MG/0.6 ML BOTTLE PO PRN (21:15)
[2025-01-05] MEDS ORDERED: ONDANSETRON 4 MG/2 ML VIAL IVPUSH PRN (22:15)
[2025-01-05] MEDS: DEXTROSE 5%-LACTATED RINGERS 1,000 ML IV SCH (22:38)
[2025-01-06] MEDS: INSULIN ASPART SLIDING SCALE (NOVOLOG) 1 VIAL SQ SCH (02:55)
[2025-01-06] MEDS: PIPERACILLIN/TAZOB 2.25 GM 2.25 GM/50 ML BAG IVPB SCH (02:59)
[2025-01-06] MEDS: HEPARIN NA (PORCINE) 5,000 UNITS/ML 1ML VIAL SQ SCH (05:44)
[2025-01-06 06:56] LABS: HEMATOCRIT 30.6 % (35.4-49); HEMOGLOBIN 9.6 GM/dL (11.7-16.9); MCHC 31.4 g/dl (32.0-35.9); MEAN CELL VOLUME 92.4 fl (80-96); MEAN PLT VOLUME 8.1 fl (7.5-11.1); PLATELET COUNT 274 10^3/uL (134-434); RBC 3.32 M/mm3 (4.00-5.60); WHITE BLOOD COUNT 10.4 K/mm3 (4.0-10.0)
[2025-01-06 07:10] LABS: POTASSIUM 3.7 mmol/L (3.5-5.1)
[2025-01-06 07:13] LABS: ALBUMIN 1.7 g/dl (3.4-5.0); CALCIUM 7.8 mg/dL (8.5-10.1)
[2025-01-06 07:16] LABS: CREATININE 3.7 mg/dL (0.55-1.3)
[2025-01-06 07:17] LABS: BILIRUBIN,TOTAL 0.3 mg/dL (0.2-1); TOT PROT 4.8 g/dl (6.4-8.2)
[2025-01-06] MEDS: PANTOPRAZOLE SODIUM 40 MG VIAL IVPUSH SCH (09:40)
[2025-01-06] MEDS: ACETAMINOPHEN 1000 MG/100 ML BAG IVPB PRN (13:24)
[2025-01-07 07:58] LABS: POTASSIUM 3.7 mmol/L (3.5-5.1)
[2025-01-07 08:02] LABS: CALCIUM 7.7 mg/dL (8.5-10.1)
[2025-01-07 08:04] LABS: ALBUMIN 1.6 g/dl (3.4-5.0); BLOOD UREA NITROGEN 81.8 mg/dL (7-18)
[2025-01-07 08:06] LABS: CREATININE 3.2 mg/dL (0.55-1.3)
[2025-01-07 08:08] LABS: BILIRUBIN,TOTAL 0.4 mg/dL (0.2-1); TOT PROT 4.6 g/dl (6.4-8.2)
[2025-01-07] MEDS: INSULIN ASPART SLIDING SCALE (NOVOLOG) 1 VIAL SQ SCH (16:58)
[2025-01-08 07:25] LABS: HEMATOCRIT 32.5 % (35.4-49); HEMOGLOBIN 10.3 GM/dL (11.7-16.9); MCHC 31.7 g/dl (32.0-35.9); MEAN CELL VOLUME 91.5 fl (80-96); PLATELET COUNT 328 10^3/uL (134-434); RBC 3.55 M/mm3 (4.00-5.60); RDW 16.2 % (11.9-15.9); WHITE BLOOD COUNT 14.7 K/mm3 (4.0-10.0)
[2025-01-08 07:45] LABS: POTASSIUM 3.6 mmol/L (3.5-5.1)
[2025-01-08 07:48] LABS: CALCIUM 7.9 mg/dL (8.5-10.1)
[2025-01-08 07:49] LABS: ALBUMIN 1.8 g/dl (3.4-5.0)
[2025-01-08 07:53] LABS: BILIRUBIN,TOTAL 0.3 mg/dL (0.2-1); CREATININE 2.9 mg/dL (0.55-1.3); TOT PROT 5.2 g/dl (6.4-8.2)
[2025-01-08 11:44] LABS: ANISOCYTOSIS 0; MACROCYTOSIS 0
[2025-01-09 07:09] LABS: HEMATOCRIT 31.3 % (35.4-49); HEMOGLOBIN 9.7 GM/dL (11.7-16.9); MCH 28.6 pg (25.7-33.7); MCHC 31.2 g/dl (32.0-35.9); MEAN CELL VOLUME 91.8 fl (80-96); MEAN PLT VOLUME 8.2 fl (7.5-11.1); PLATELET COUNT 289 10^3/uL (134-434); WHITE BLOOD COUNT 14.7 K/mm3 (4.0-10.0)
[2025-01-09 07:19] LABS: POTASSIUM 3.5 mmol/L (3.5-5.1)
[2025-01-09 07:24] LABS: BLOOD UREA NITROGEN 60.6 mg/dL (7-18); CALCIUM 7.7 mg/dL (8.5-10.1)
[2025-01-09 07:25] LABS: ALBUMIN 1.7 g/dl (3.4-5.0)
[2025-01-09 07:28] LABS: CREATININE 2.5 mg/dL (0.55-1.3)
[2025-01-09 07:29] LABS: BILIRUBIN,TOTAL 0.3 mg/dL (0.2-1); TOT PROT 4.9 g/dl (6.4-8.2)
[2025-01-09 09:10] LABS: ANISOCYTOSIS 0; MACROCYTOSIS 0
[2025-01-09] MEDS: SODIUM CHLORIDE 0.45% 1,000 ML IV SCH (15:06)
[2025-01-10] MEDS: ACETAMINOPHEN 1000 MG/100 ML BAG IVPB PRN (10:39)
[2025-01-10] MEDS: CARVEDILOL 6.25 MG TABLET (FP) PO SCH (15:26)
[2025-01-10] MEDS: AMOX TR/POT CLAV 500MG/125MG TABLETS (FP) PO SCH (18:42)
[2025-01-11 11:13] LABS: HEMATOCRIT 31.5 % (35.4-49); MCHC 31.7 g/dl (32.0-35.9); MEAN CELL VOLUME 91.5 fl (80-96); MEAN PLT VOLUME 7.9 fl (7.5-11.1); PLATELET COUNT 263 10^3/uL (134-434); RBC 3.45 M/mm3 (4.00-5.60); RDW 16.1 % (11.9-15.9); WHITE BLOOD COUNT 15.4 K/mm3 (4.0-10.0)
[2025-01-11 11:38] LABS: POTASSIUM 3.7 mmol/L (3.5-5.1)
[2025-01-11 11:45] LABS: ALBUMIN 1.8 g/dl (3.4-5.0); CALCIUM 8.1 mg/dL (8.5-10.1)
[2025-01-11 11:48] LABS: BILIRUBIN,TOTAL 0.2 mg/dL (0.2-1); TOT PROT 5.3 g/dl (6.4-8.2)
[2025-01-11 12:30] LABS: ANISOCYTOSIS 0; HELMET CELLS 0; HOWELL-JOLLY BODIES 0; MACROCYTOSIS 0; OVALOCYTE 0; ROULEAU 0; SICKELED CELLS 0; TARGET CELLS 0; TEAR DROP CELLS 0; TOXIC GRANULATION 0
[2025-01-12] MEDS: amLODIPine BESYLATE 5 MG TABLET (FP) PO SCH (11:43)
[2025-01-12] MEDS: TORSEMIDE 20 MG TABLET (FP) PO SCH (11:43)
[2025-01-12] MEDS: TAMSULOSIN HCL 0.4 MG CAP PO SCH (11:43)
[2025-01-13 10:31] LABS: BASO % 0.4 % (0-2.0); EOS % 2.7 % (0-4.5); HEMATOCRIT 30.1 % (35.4-49); HEMOGLOBIN 9.8 GM/dL (11.7-16.9); LYMPH % 12.4 % (8-40); MCH 29.6 pg (25.7-33.7); MCHC 32.7 g/dl (32.0-35.9); MEAN CELL VOLUME 90.6 fl (80-96); MONO % 7.8 % (3.8-10.2); NEUT % 76.7 % (42.8-82.8); PLATELET COUNT 213 10^3/uL (134-434); RBC 3.32 M/mm3 (4.00-5.60); WHITE BLOOD COUNT 10.5 K/mm3 (4.0-10.0)
[2025-01-13 10:57] LABS: POTASSIUM 3.6 mmol/L (3.5-5.1)
[2025-01-13 11:00] LABS: ALBUMIN 1.9 g/dl (3.4-5.0); BLOOD UREA NITROGEN 31.8 mg/dL (7-18); CALCIUM 8.5 mg/dL (8.5-10.1)
[2025-01-13 11:03] LABS: CREATININE 1.9 mg/dL (0.55-1.3)
[2025-01-13 11:05] LABS: BILIRUBIN,TOTAL 0.2 mg/dL (0.2-1); TOT PROT 5.3 g/dl (6.4-8.2)
[2025-01-14] MEDS: TORSEMIDE 20 MG TABLET (FP) PO SCH (09:41)
[2025-01-14] MEDS: amLODIPine BESYLATE 10 MG TABLET (FP) PO SCH (09:42)
[2025-01-14] MEDS: PANTOPRAZOLE 40 MG TABLET PO SCH (09:42)
[2025-01-14] MEDS: CARVEDILOL 12.5 MG TABLET (FP) PO SCH (22:02)
[2025-01-15 08:02] LABS: POTASSIUM 3.4 mmol/L (3.5-5.1)
[2025-01-15 08:05] LABS: CALCIUM 8.3 mg/dL (8.5-10.1)
[2025-01-15 08:06] LABS: BLOOD UREA NITROGEN 24.3 mg/dL (7-18)
[2025-01-15 08:11] LABS: BILIRUBIN,TOTAL 0.4 mg/dL (0.2-1); TOT PROT 5.5 g/dl (6.4-8.2)
[2025-01-15] MEDS: POTASSIUM CHLORIDE TABS 20 MEQ TABLET.ER (FP) PO ONE (12:40)
[2025-01-15] MEDS: METOLAZONE 2.5 MG TABLET (FP) PO ONE (16:52)
[2025-01-16 08:47] LABS: POTASSIUM 3.5 mmol/L (3.5-5.1)
[2025-01-16 08:51] LABS: BLOOD UREA NITROGEN 23.7 mg/dL (7-18)
[2025-01-16 08:52] LABS: CALCIUM 8.2 mg/dL (8.5-10.1)
[2025-01-16 08:55] LABS: CREATININE 2.2 mg/dL (0.55-1.3)
[2025-01-16] MEDS: TORSEMIDE 20 MG TABLET (FP) PO SCH (17:54)
[2025-01-17 11:45] LABS: BASO % 0.6 % (0-2.0); EOS % 2.1 % (0-4.5); HEMATOCRIT 29.4 % (35.4-49); HEMOGLOBIN 9.6 GM/dL (11.7-16.9); LYMPH % 15.7 % (8-40); MCH 29.7 pg (25.7-33.7); MCHC 32.6 g/dl (32.0-35.9); MEAN CELL VOLUME 90.9 fl (80-96); MEAN PLT VOLUME 8.1 fl (7.5-11.1); NEUT % 73.6 % (42.8-82.8); PLATELET COUNT 175 10^3/uL (134-434); RBC 3.23 M/mm3 (4.00-5.60); RDW 16.4 % (11.9-15.9); WHITE BLOOD COUNT 8.8 K/mm3 (4.0-10.0)
[2025-01-17 11:51] LABS: POTASSIUM 3.3 mmol/L (3.5-5.1)
[2025-01-17 11:56] LABS: CALCIUM 8.1 mg/dL (8.5-10.1)
[2025-01-17 11:57] LABS: BLOOD UREA NITROGEN 21.4 mg/dL (7-18)
[2025-01-17 12:00] LABS: CREATININE 2.1 mg/dL (0.55-1.3)
[2025-01-17 12:01] LABS: BILIRUBIN,TOTAL 0.3 mg/dL (0.2-1); TOT PROT 5.8 g/dl (6.4-8.2)
[2025-01-17] MEDS: POTASSIUM CHLORIDE ORAL LIQUID 20 MEQ/15 ML PO SCH (14:50)
[2025-01-18 02:04] VITALS: RESP 18
[2025-01-18] MEDS ORDERED: SIMETHICONE 40 MG/0.6 ML BOTTLE PO PRN (10:17)
[2025-01-18] MEDS ORDERED: ONDANSETRON 4 MG/2 ML VIAL IVPUSH PRN (10:17)
[2025-01-18] MEDS: TAMSULOSIN HCL 0.4 MG CAP PO SCH (12:14)
[2025-01-18] MEDS: INSULIN ASPART SLIDING SCALE (NOVOLOG) 1 VIAL SQ SCH (12:15)
[2025-01-18] MEDS: POTASSIUM CHLORIDE ORAL LIQUID 20 MEQ/15 ML PO ONE (12:39)
[2025-01-18] MEDS ORDERED: HEPARIN NA (PORCINE) 5,000 UNITS/ML 1ML VIAL SQ SCH (14:00)
[2025-01-18 14:46] VITALS: BP 138/80; PULSE 86; TEMP 97.5
[2025-01-19] MEDS ORDERED: TAMSULOSIN HCL 0.4 MG CAP PO SCH (08:30)
== END 2025-01-18 14:39 | DRG 871 ==
LOC: FER 13:42 → JICU 12-30 00:15 → J2W 01-05 18:13 → J4S 01-12 22:38
PROVIDERS: ADMIT Internal Medicine; ATTEND Internal Medicine
PROC: 05HM33Z Insertion of Infusion Device into Right Internal Jugular Vein, Percutaneous Approach (ICD-10-PCS; principal; 2024-12-30)
PROC: B543ZZA Ultrasonography of Right Jugular Veins, Guidance (ICD-10-PCS; 2024-12-30)
PROC: 4A133B1 Monitoring of Arterial Pressure, Peripheral, Percutaneous Approach (ICD-10-PCS; 2024-12-30)
PROC: 4A133J1 Monitoring of Arterial Pulse, Peripheral, Percutaneous Approach (ICD-10-PCS; 2024-12-30)
PROC: 0T9B30Z Drainage of Bladder with Drainage Device, Percutaneous Approach (ICD-10-PCS; 2024-12-30)
PROC: 0F9430Z Drainage of Gallbladder with Drainage Device, Percutaneous Approach (ICD-10-PCS; 2025-01-03)
DX: A41.89 Other specified sepsis (principal); G93.41 Metabolic encephalopathy; J96.01 Acute respiratory failure with hypoxia; R65.21 Severe sepsis with septic shock; J18.9 Pneumonia, unspecified organism; N39.0 Urinary tract infection, site not specified; E87.20 Acidosis, unspecified; J98.11 Atelectasis; I47.10 Supraventricular tachycardia, unspecified; K86.2 Cyst of pancreas; K80.00 Calculus of gallbladder with acute cholecystitis without obstruction; I13.0 Hypertensive heart and chronic kidney disease with heart failure and stage 1 through stage 4 chronic kidney disease, or unspecified chronic kidney disease; I50.32 Chronic diastolic (congestive) heart failure; J44.9 Chronic obstructive pulmonary disease, unspecified; N31.9 Neuromuscular dysfunction of bladder, unspecified; E78.5 Hyperlipidemia, unspecified; F03.90 Unspecified dementia, unspecified severity, without behavioral disturbance, psychotic disturbance, mood disturbance, and anxiety; H40.9 Unspecified glaucoma; B96.20 Unspecified Escherichia coli [E. coli] as the cause of diseases classified elsewhere; I45.10 Unspecified right bundle-branch block; K21.9 Gastro-esophageal reflux disease without esophagitis; I25.10 Atherosclerotic heart disease of native coronary artery without angina pectoris; G47.33 Obstructive sleep apnea (adult) (pediatric); D72.829 Elevated white blood cell count, unspecified; F41.8 Other specified anxiety disorders; E11.51 Type 2 diabetes mellitus with diabetic peripheral angiopathy without gangrene; E66.9 Obesity, unspecified; Z68.38 Body mass index [BMI] 38.0-38.9, adult; E11.22 Type 2 diabetes mellitus with diabetic chronic kidney disease; N18.9 Chronic kidney disease, unspecified; M48.00 Spinal stenosis, site unspecified
CPT/HCPCS: 0241U-QW; 36415; 36600; 47490; 70450-TC; 71045-TC-FY; 71250-TC; 74018-TC-FY; 74176-TC; 74301-FY; 76705-TC; 76856-TC; 80048; 80053; 81003; 81015; 82570; 82803; 82962; 83605; 83735; 83880; 84100; 84300; 84436; 84443; 84479; 84484; 85025; 85027; 85610; 85730; 86850; 86900; 86901; 87040; 87070; 87075; 87086; 87102; 87116; 87186; 87205; 87206; 87210; 87324; 87449; 87481; 87635; 93005; 93306-TC; 94640; 97116-GP; 97162-GP; 99291; J0131; J1644; J3490

== ENCOUNTER 2025-04-07 22:48 | Inpatient (IN) | payer OTHER ==
[2025-04-07] MEDS ORDERED: ALBUTEROL SO4 2.5/IPRATROPIUM 0.5 INH SOL 3 ML VIAL.NEB. NEB ONE ×2 (22:52→23:30)
[2025-04-07] MEDS: ALBUTEROL SO4 2.5/IPRATROPIUM 0.5 INH SOL 3 ML VIAL.NEB. NEB SCH (23:00)
[2025-04-07] MEDS ORDERED: cefTRIAXone SODIUM 1 GM VIAL ONE (23:33)
[2025-04-07] MEDS ORDERED: AZITHROMYCIN 500 MG VIAL IVPB ONE (23:33)
[2025-04-07 23:36] LABS: ABSOLUTE IMMATURE GRANULOCYTES 0.04 x10^3/uL (0.0-0.031); BASOPHILS # 0.03 x10^3/uL (0.01-0.08); EOSINOPHIL % 2.3 % (0.8-7.0); EOSINOPHILS # 0.25 x10^3/uL (0.04-0.54); HEMATOCRIT 30.1 % (40.1-51.0); HEMOGLOBIN 9.6 g/dL (13.7-17.5); MCHC 31.9 g/dl (32.3-36.5); MEAN PLT VOLUME 9.5 fl (9.4-12.4); MONOCYTE # 1.07 x10^3/uL (0.30-0.82); MONOCYTE % 9.7 % (5.3-12.2); PLATELET COUNT 189 x10^3/uL (163-337); RDW 13.2 % (12.6-16.6)
[2025-04-07] MEDS: AZITHROMYCIN IVPB 500 MG in DEXTROSE 5%-WATER - 250 ML IVPB ONE (23:42)
[2025-04-07] MEDS: CEFTRIAXONE 1,000 MG in DEXTROSE 5%-WATER - 50 ML IVPB ONE (23:42)
[2025-04-07 23:45] LABS: INR 1.09 (0.83-1.09); PROTHROMBIN TIME (PATIENT) 12.1 SEC (9.7-13.0)
[2025-04-07 23:47] LABS: ALBUMIN 3.3 g/dl (3.4-5.0); ALK PHOS 64 U/L (45-117); ANION GAP 9 mmol/L (4-13); BILIRUBIN,TOTAL 0.4 mg/dl (0.2-1); CALCIUM 8.7 mg/dl (8.5-10.1); CHLORIDE 98 mmol/L (98-107); CO2 35 mmol/L (21-32); CREATININE 2.3 mg/dl (0.6-1.3); GLUCOSE,RANDOM 146 mg/dl (74-106); MAGNESIUM 1.9 mg/dL (1.8-2.4); PHOSPHOROUS 4.1 (2.5-4.9); POTASSIUM 4.4 mmol/L (3.5-5.1); SGOT/AST 12 U/L (15-37); SGPT/ALT 15 U/L (7-52); SODIUM 142 mmol/L (136-145); TOT PROT 6.5 g/dl (6.4-8.2)
[2025-04-07 23:55] LABS: EPITHELIAL CELLS 0-5 /hpf
[2025-04-08 00:33] LABS: VENOUS BASE EXCESS 7.4 mmol/L (-2-2); VENOUS O2 SATURATION 89.7 % (70-80); VENOUS PCO2 63.5 mmHg (38-52); VENOUS PH 7.355 (7.310-7.410)
[2025-04-08] MEDS ORDERED: ACETAMINOPHEN 325 MG TABLET (FP) PO PRN (08:57)
[2025-04-08] MEDS: LACTOBACILLUS ACIDOPHILUS 1 TABLET PO SCH (09:51)
[2025-04-08] MEDS: MEMANTINE HCL 5 MG TABLET (UD) PO SCH (09:51)
[2025-04-08] MEDS: ESCITALOPRAM OXALATE 10 MG TABLET PO SCH (09:51)
[2025-04-08] MEDS: amLODIPine BESYLATE 10 MG TABLET (FP) PO SCH (09:51)
[2025-04-08] MEDS: PANTOPRAZOLE 40 MG TABLET PO SCH (09:51)
[2025-04-08] MEDS: DOCUSATE SODIUM 100 MG CAPSULE (FP) PO SCH (09:51)
[2025-04-08] MEDS: CARVEDILOL 12.5 MG TABLET (FP) PO SCH (09:51)
[2025-04-08] MEDS ORDERED: PATIENT'S OWN MEDICATION (NON-FORMULARY) (Beta-Carotene(A) W-C And E/Min 1 TAB Tablet) PO SCH (10:00)
[2025-04-08] MEDS ORDERED: PIPERACILLIN/TAZOB 2.25 GM 2.25 GM in DEXTROSE 5%-WATER - 50 ML IVPB SCH (10:00)
[2025-04-08] MEDS: POLYETHYLENE GLYCOL (HEALTHYLAX) 3350 17 GM PACKET PO SCH (10:07)
[2025-04-08] MEDS: CHOLECALCIFEROL (VIT D3) 1,000 UNIT (25 MCG) TABLET PO SCH (10:07)
[2025-04-08] MEDS: methylPREDNISolone NA SUCC 40 MG/1 ML VIAL IVPUSH SCH (10:08)
[2025-04-08] MEDS: ALBUTEROL SO4 2.5/IPRATROPIUM 0.5 INH SOL 3 ML VIAL.NEB. NEB SCH (10:52)
[2025-04-08] MEDS: INSULIN ASPART SLIDING SCALE (NOVOLOG) 1 VIAL SQ SCH (11:06)
[2025-04-08] MEDS: PIPERACILLIN/TAZOB 2.25 GM 2.25 GM/50 ML BAG IVPB SCH ×2 (11:09→18:00)
[2025-04-08] MEDS: GABAPENTIN 100 MG CAPSULE PO SCH (14:15)
[2025-04-08] MEDS: AMMONIUM LACTATE 12% LOTION 225 GM BOTTLE TP SCH (14:15)
[2025-04-08] MEDS: HEPARIN NA (PORCINE) 5,000 UNITS/ML 1ML VIAL SQ SCH (14:15)
[2025-04-08] MEDS: TORSEMIDE 20 MG TABLET (FP) PO SCH (17:54)
[2025-04-08] MEDS: BUDESONIDE 0.5 MG/2 ML INH SUSP VIAL NEB SCH (20:05)
[2025-04-08] MEDS: INSULIN GLARGINE (LANTUS) 100 UNITS/ML UNITS SQ SCH (21:39)
[2025-04-08] MEDS: MELATONIN 5 MG TABLETS PO SCH (21:39)
[2025-04-08] MEDS ORDERED: PATIENT'S OWN MEDICATION (NON-FORMULARY) (Mirabegron [Myrbetriq] 50 MG Tab.Er.24h) PO SCH (22:00)
[2025-04-08] MEDS: LATANOPROST 0.005% OPHTH SOLN 2.5ML BOTTLE OU SCH (23:09)
[2025-04-09 07:34] LABS: ABSOLUTE IMMATURE GRANULOCYTES 0.06 x10^3/uL (0.0-0.031); BASOPHILS # 0.01 x10^3/uL (0.01-0.08); HEMOGLOBIN 9.2 g/dL (13.7-17.5); MCHC 30.7 g/dl (32.3-36.5); MEAN CELL VOLUME 98.7 fl (79.0-92.2); MONOCYTE # 0.22 x10^3/uL (0.30-0.82); MONOCYTE % 3.5 % (5.3-12.2); PLATELET COUNT 180 x10^3/uL (163-337); RDW 13.2 % (12.6-16.6)
[2025-04-09 07:56] LABS: POTASSIUM 4.4 mmol/L (3.5-5.1)
[2025-04-09 08:01] LABS: ALBUMIN 2.7 g/dl (3.4-5.0); BLOOD UREA NITROGEN 64.1 mg/dL (7-18)
[2025-04-09 08:04] LABS: CREATININE 2.6 mg/dL (0.55-1.3)
[2025-04-09 08:05] LABS: BILIRUBIN,TOTAL 0.2 mg/dL (0.2-1)
[2025-04-09] MEDS: TAMSULOSIN HCL 0.4 MG CAP PO SCH (10:49)
[2025-04-09] MEDS: INSULIN GLARGINE (LANTUS) 100 UNITS/ML UNITS SQ SCH (22:06)
[2025-04-10] MEDS: guaiFENesin/D-METHORPHAN HB 10 ML UNIT-DOSE CUPS PO PRN (06:00)
[2025-04-10] MEDS: methylPREDNISolone NA SUCC 40 MG/1 ML VIAL IVPUSH SCH (09:30)
[2025-04-10] MEDS ORDERED: PIPERACILLIN/TAZOB 2.25 GM 2.25 GM/50 ML BAG IVPB SCH (10:00)
[2025-04-11 15:04] VITALS: BMI 36.9
[2025-04-12] MEDS: INSULIN GLARGINE (LANTUS) 100 UNITS/ML UNITS SQ SCH (21:45)
[2025-04-13] MEDS: INSULIN GLARGINE (LANTUS) 100 UNITS/ML UNITS SQ SCH (06:00)
[2025-04-13 13:23] VITALS: BP 135/61; PULSE 51; RESP 16; TEMP 97.5
[2025-04-14] MEDS ORDERED: predniSONE 20 MG TABLET (UD) PO SCH (10:00)
== END 2025-04-13 15:03 | DRG 291 ==
LOC: FER 22:48 → J4S 04-08 05:15
PROVIDERS: ADMIT Student in an Organized Health Care Education/Training Program; ATTEND Internal Medicine
DX: I13.0 Hypertensive heart and chronic kidney disease with heart failure and stage 1 through stage 4 chronic kidney disease, or unspecified chronic kidney disease (principal); I50.33 Acute on chronic diastolic (congestive) heart failure; J18.9 Pneumonia, unspecified organism; J96.22 Acute and chronic respiratory failure with hypercapnia; J44.0 Chronic obstructive pulmonary disease with (acute) lower respiratory infection; J44.1 Chronic obstructive pulmonary disease with (acute) exacerbation; N17.9 Acute kidney failure, unspecified; J44.9 Chronic obstructive pulmonary disease, unspecified; N18.9 Chronic kidney disease, unspecified; E66.01 Morbid (severe) obesity due to excess calories; Z68.37 Body mass index [BMI] 37.0-37.9, adult
CPT/HCPCS: 0241U-QW; 36415; 71045-TC-FY; 80053; 81003; 81015; 82550; 82803; 82962; 83036; 83605; 83735; 83880; 84100; 84484; 85025; 85610; 87040; 87086; 87635; 93005; 94640; 94660; 97161-GP; 99285-25; J1644

== ENCOUNTER 2025-07-28 13:33 | Inpatient (IN) | payer OTHER ==
[2025-07-28 14:33] LABS: MCHC 31.2 g/dl (32.3-36.5); MEAN CELL VOLUME 96.9 fl (79.0-92.2); MEAN PLT VOLUME 9.2 fl (9.4-12.4); RDW 13.2 % (12.6-16.6)
[2025-07-28 14:35] LABS: URINE APPEARANCE CLEAR; URINE BILIRUBIN NEGATIVE (NEGATIVE); URINE COLOR YELLOW; URINE GLUCOSE (UA) NEGATIVE (NEGATIVE); URINE KETONE NEGATIVE (NEGATIVE); URINE LEUK ESTERASE NEGATIVE (NEGATIVE); URINE NITRITE NEGATIVE (NEGATIVE); URINE PROTEIN NEGATIVE (NEGATIVE); URINE UROBILINOGEN 0.2 mg/dL (0.2-1.0)
[2025-07-28] MEDS ORDERED: ACETAMINOPHEN INJECTION 100 ML ONE (14:40)
[2025-07-28] MEDS: ACETAMINOPHEN 1000 MG/100 ML BAG IVPB ONE (14:45)
[2025-07-28 14:53] LABS: INR 1.08 (0.83-1.09); PROTHROMBIN TIME (PATIENT) 11.9 SEC (9.7-13.0)
[2025-07-28 14:56] LABS: ACTIVATED PTT 30.6 SECONDS (25.2-36.5)
[2025-07-28 14:59] LABS: GLUCOSE,RANDOM 106.0 mg/dL (74-106); TOT PROT 6.6 g/dl (6.4-8.2)
[2025-07-28 15:00] LABS: CO2 32.0 mmol/L (21-32)
[2025-07-28 15:02] LABS: ALK PHOS 70.0 U/L (40-150)
[2025-07-28 15:04] LABS: SGOT/AST 21.0 U/L (5-34); SGPT/ALT 16.0 U/L (0-55)
[2025-07-28 15:05] LABS: CREATININE 3.72 mg/dL (0.55-1.3)
[2025-07-28] MEDS: SODIUM CHLORIDE 0.9% 1000 ML INFUS.BAG IV ONE (17:39)
[2025-07-28] MEDS ORDERED: PIPERACILLIN/TAZOB 4.5 GM 4.5 GM/100 ML BAG IVPB ONE (18:59)
[2025-07-28] MEDS: PIPERACILLIN/TAZOB 4.5 GM 4.5 GM in DEXTROSE 5%-WATER 100 ML IVPB ONE (19:09)
[2025-07-28] MEDS ORDERED: AZITHROMYCIN IVPB 500 MG/250 ML BAG IVPB ONE (19:39)
[2025-07-28] MEDS: AZITHROMYCIN IVPB 500 MG in DEXTROSE 5%-WATER - 250 ML IVPB ONE (19:47)
[2025-07-28 20:42] LABS: N-TERMINAL BNP 5081.5 pg/mL (0-299.9)
[2025-07-28] MEDS ORDERED: VANCOMYCIN 1 GM PREMIX (F) 1 GM/200 ML BAG ONE (21:08)
[2025-07-28] MEDS: VANCOMYCIN 1,000 MG in DEXTROSE 5%-WATER - 250 ML IVPB ONE (21:14)
[2025-07-29 08:52] LABS: ABSOLUTE IMMATURE GRANULOCYTES 0.03 x10^3/uL (0.0-0.031); BASOPHILS # 0.03 x10^3/uL (0.01-0.08); EOSINOPHIL % 6.0 % (0.8-7.0); EOSINOPHILS # 0.43 x10^3/uL (0.04-0.54); MCHC 30.7 g/dl (32.3-36.5); MEAN CELL VOLUME 97.0 fl (79.0-92.2); MEAN PLT VOLUME 9.4 fl (9.4-12.4); MONOCYTE # 0.88 x10^3/uL (0.30-0.82); MONOCYTE % 12.3 % (5.3-12.2); RDW 13.1 % (12.6-16.6)
[2025-07-29 10:57] LABS: CO2 33.0 mmol/L (21-32); CREATININE 3.77 mg/dL (0.55-1.3); GLUCOSE,RANDOM 88.0 mg/dL (74-106)
[2025-07-29] MEDS: amLODIPine BESYLATE 10 MG TABLET (FP) PO SCH (11:10)
[2025-07-29] MEDS: CARVEDILOL 12.5 MG TABLET (FP) PO SCH (11:11)
[2025-07-29] MEDS: MEMANTINE HCL 5 MG TABLET (UD) PO SCH (11:11)
[2025-07-29] MEDS: ESCITALOPRAM OXALATE 10 MG TABLET PO SCH (11:11)
[2025-07-29] MEDS: PANTOPRAZOLE 40 MG TABLET PO SCH (11:11)
[2025-07-29] MEDS: GABAPENTIN 100 MG CAPSULE PO SCH (11:11)
[2025-07-29] MEDS: TORSEMIDE 20 MG TABLET (FP) PO SCH (11:11)
[2025-07-29] MEDS: DOCUSATE SODIUM 100 MG CAPSULE (FP) PO SCH (11:11)
[2025-07-29] MEDS: TAMSULOSIN HCL 0.4 MG CAP PO SCH (11:20)
[2025-07-29] MEDS: ALBUTEROL SO4 2.5/IPRATROPIUM 0.5 INH SOL 3 ML VIAL.NEB. NEB PRN (12:30)
[2025-07-29] MEDS: LATANOPROST 0.005% OPHTH SOLN 2.5ML BOTTLE OU SCH (22:17)
[2025-07-30] MEDS: LORazepam 2 MG/ML SDV VIAL IM ONE (01:01)
[2025-07-30] MEDS ORDERED: TAMSULOSIN HCL 0.4 MG CAP PO SCH (09:47)
[2025-07-30] MEDS ORDERED: LORazepam 2 MG/ML SDV VIAL IM PRN (09:48)
[2025-07-30] MEDS: TAMSULOSIN HCL 0.4 MG CAP PO SCH (10:48)
[2025-07-30] MEDS: INSULIN ASPART SLIDING SCALE (NOVOLOG) 1 VIAL SQ SCH (12:16)
[2025-07-31 07:23] LABS: ABSOLUTE IMMATURE GRANULOCYTES 0.04 x10^3/uL (0.0-0.031); BASOPHILS # 0.03 x10^3/uL (0.01-0.08); EOSINOPHIL % 4.8 % (0.8-7.0); EOSINOPHILS # 0.37 x10^3/uL (0.04-0.54); MCHC 30.4 g/dl (32.3-36.5); MEAN CELL VOLUME 98.1 fl (79.0-92.2); MEAN PLT VOLUME 9.7 fl (9.4-12.4); MONOCYTE # 1.04 x10^3/uL (0.30-0.82); MONOCYTE % 13.5 % (5.3-12.2); RDW 12.9 % (12.6-16.6)
[2025-07-31 07:44] LABS: GLUCOSE,RANDOM 113.0 mg/dL (74-106)
[2025-07-31 07:45] LABS: TOT PROT 6.1 g/dl (6.4-8.2)
[2025-07-31 07:46] LABS: CO2 34.0 mmol/L (21-32)
[2025-07-31 07:47] LABS: ALK PHOS 63.0 U/L (40-150)
[2025-07-31 07:50] LABS: CREATININE 4.39 mg/dL (0.55-1.3); SGOT/AST 15.0 U/L (5-34); SGPT/ALT 11.0 U/L (0-55)
[2025-08-01 08:01] LABS: GLUCOSE,RANDOM 120.0 mg/dL (74-106)
[2025-08-01 08:02] LABS: TOT PROT 6.1 g/dl (6.4-8.2)
[2025-08-01 08:03] LABS: CO2 34.0 mmol/L (21-32)
[2025-08-01 08:05] LABS: ALK PHOS 63.0 U/L (40-150)
[2025-08-01 08:07] LABS: CREATININE 4.24 mg/dL (0.55-1.3); SGOT/AST 16.0 U/L (5-34); SGPT/ALT 11.0 U/L (0-55)
[2025-08-01] MEDS: DEXTROSE 5%-WATER - 1,000 ML IV SCH (15:19)
[2025-08-02 07:48] LABS: MCHC 29.9 g/dl (32.3-36.5); MEAN CELL VOLUME 99.6 fl (79.0-92.2); MEAN PLT VOLUME 9.6 fl (9.4-12.4); RDW 13.1 % (12.6-16.6)
[2025-08-02 08:11] LABS: GLUCOSE,RANDOM 124.0 mg/dL (74-106)
[2025-08-02 08:12] LABS: TOT PROT 5.7 g/dl (6.4-8.2)
[2025-08-02 08:13] LABS: CO2 33.0 mmol/L (21-32)
[2025-08-02 08:14] LABS: ALK PHOS 55.0 U/L (40-150)
[2025-08-02 08:17] LABS: SGOT/AST 17.0 U/L (5-34); SGPT/ALT 10.0 U/L (0-55)
[2025-08-02 08:27] LABS: CREATININE 4.77 mg/dL (0.55-1.3)
[2025-08-02] MEDS: DEXTROSE 5%-WATER - 1,000 ML IV SCH ×2 (17:19→17:20)
[2025-08-02 23:22] LABS: BODY FLUID MONOCYTE 12 %; BODYL FLD EOSINOPHIL 2 %
[2025-08-03 07:40] LABS: MCHC 30.8 g/dl (32.3-36.5); MEAN CELL VOLUME 98.9 fl (79.0-92.2); MEAN PLT VOLUME 9.6 fl (9.4-12.4); RDW 12.8 % (12.6-16.6)
[2025-08-03 08:48] LABS: GLUCOSE,RANDOM 152.0 mg/dL (74-106)
[2025-08-03 08:49] LABS: TOT PROT 5.6 g/dl (6.4-8.2)
[2025-08-03 08:50] LABS: CO2 33.0 mmol/L (21-32)
[2025-08-03 08:51] LABS: ALK PHOS 58.0 U/L (40-150)
[2025-08-03 08:54] LABS: SGOT/AST 35.0 U/L (5-34); SGPT/ALT 13.0 U/L (0-55)
[2025-08-03 09:05] LABS: CREATININE 4.46 mg/dL (0.55-1.3)
[2025-08-03 16:00] VITALS: BMI 37.7
[2025-08-04] MEDS: ACETAMINOPHEN 1000 MG/100 ML BAG IVPB ONE ×2 (04:41→14:12)
[2025-08-04] MEDS ORDERED: INSULIN ASPART SLIDING SCALE (NOVOLOG) 1 VIAL SQ ONE (06:53)
[2025-08-04 07:28] LABS: ABSOLUTE IMMATURE GRANULOCYTES 0.05 x10^3/uL (0.0-0.031); BASOPHILS # 0.03 x10^3/uL (0.01-0.08); EOSINOPHIL % 5.6 % (0.8-7.0); EOSINOPHILS # 0.44 x10^3/uL (0.04-0.54); MCHC 30.9 g/dl (32.3-36.5); MEAN CELL VOLUME 97.1 fl (79.0-92.2); MEAN PLT VOLUME 9.8 fl (9.4-12.4); MONOCYTE # 0.68 x10^3/uL (0.30-0.82); MONOCYTE % 8.6 % (5.3-12.2); RDW 12.6 % (12.6-16.6)
[2025-08-04 08:39] LABS: GLUCOSE,RANDOM 163.0 mg/dL (74-106); TOT PROT 5.6 g/dl (6.4-8.2)
[2025-08-04 08:40] LABS: CO2 28.0 mmol/L (21-32)
[2025-08-04 08:42] LABS: ALK PHOS 56.0 U/L (40-150)
[2025-08-04 08:45] LABS: CREATININE 3.99 mg/dL (0.55-1.3); SGOT/AST 28.0 U/L (5-34); SGPT/ALT 11.0 U/L (0-55)
[2025-08-04 15:06] LABS: BODY FLUID ALBUMIN 2.7 g/dL (Not Estab.)
[2025-08-05 10:56] LABS: ABSOLUTE IMMATURE GRANULOCYTES 0.04 x10^3/uL (0.0-0.031); BASOPHILS # 0.02 x10^3/uL (0.01-0.08); EOSINOPHIL % 6.4 % (0.8-7.0); EOSINOPHILS # 0.46 x10^3/uL (0.04-0.54); MCHC 31.3 g/dl (32.3-36.5); MEAN CELL VOLUME 96.9 fl (79.0-92.2); MEAN PLT VOLUME 10.2 fl (9.4-12.4); MONOCYTE # 0.69 x10^3/uL (0.30-0.82); MONOCYTE % 9.6 % (5.3-12.2); RDW 12.6 % (12.6-16.6)
[2025-08-05 11:45] LABS: GLUCOSE,RANDOM 93.0 mg/dL (74-106)
[2025-08-05 11:47] LABS: CO2 33.0 mmol/L (21-32)
[2025-08-05 13:27] LABS: CREATININE 3.79 mg/dL (0.55-1.3)
[2025-08-05] MEDS: SODIUM CHLORIDE 0.45% 1,000 ML IV SCH (17:20)
[2025-08-06 07:24] LABS: ABSOLUTE IMMATURE GRANULOCYTES 0.06 x10^3/uL (0.0-0.031); BASOPHILS # 0.02 x10^3/uL (0.01-0.08); EOSINOPHIL % 4.1 % (0.8-7.0); EOSINOPHILS # 0.29 x10^3/uL (0.04-0.54); MCHC 31.5 g/dl (32.3-36.5); MEAN CELL VOLUME 96.5 fl (79.0-92.2); MEAN PLT VOLUME 9.9 fl (9.4-12.4); MONOCYTE # 0.77 x10^3/uL (0.30-0.82); MONOCYTE % 11.0 % (5.3-12.2); RDW 12.6 % (12.6-16.6)
[2025-08-06 07:51] LABS: GLUCOSE,RANDOM 106.0 mg/dL (74-106); TOT PROT 5.4 g/dl (6.4-8.2)
[2025-08-06 07:52] LABS: CO2 32.0 mmol/L (21-32)
[2025-08-06 07:54] LABS: ALK PHOS 57.0 U/L (40-150)
[2025-08-06 07:57] LABS: SGPT/ALT 10.0 U/L (0-55)
[2025-08-06 08:00] LABS: CREATININE 3.86 mg/dL (0.55-1.3)
[2025-08-06 08:10] LABS: SGOT/AST 19.0 U/L (5-34)
[2025-08-08 08:45] LABS: ABSOLUTE IMMATURE GRANULOCYTES 0.07 x10^3/uL (0.0-0.031); BASOPHILS # 0.03 x10^3/uL (0.01-0.08); EOSINOPHIL % 5.9 % (0.8-7.0); EOSINOPHILS # 0.42 x10^3/uL (0.04-0.54); MCHC 31.8 g/dl (32.3-36.5); MEAN CELL VOLUME 95.5 fl (79.0-92.2); MEAN PLT VOLUME 9.8 fl (9.4-12.4); MONOCYTE # 0.89 x10^3/uL (0.30-0.82); MONOCYTE % 12.6 % (5.3-12.2); RDW 12.6 % (12.6-16.6)
[2025-08-08 09:20] LABS: GLUCOSE,RANDOM 104.0 mg/dL (74-106)
[2025-08-08 09:21] LABS: TOT PROT 4.9 g/dl (6.4-8.2)
[2025-08-08 09:22] LABS: CO2 31.0 mmol/L (21-32)
[2025-08-08 09:23] LABS: ALK PHOS 54.0 U/L (40-150)
[2025-08-08 09:26] LABS: CREATININE 3.2 mg/dL (0.55-1.3); SGOT/AST 19.0 U/L (5-34); SGPT/ALT 11.0 U/L (0-55)
[2025-08-08] MEDS: ACETAMINOPHEN 325 MG TABLET (FP) PO PRN (10:36)
[2025-08-09] MEDS ORDERED: INSULIN ASPART SLIDING SCALE (NOVOLOG) 1 VIAL SQ ONE (06:40)
[2025-08-09] MEDS: MULTIVITAMINS (DAILY MVI) TABLET (FP) PO SCH (10:49)
[2025-08-10 08:57] LABS: ABSOLUTE IMMATURE GRANULOCYTES 0.09 x10^3/uL (0.0-0.031); BASOPHILS # 0.05 x10^3/uL (0.01-0.08); EOSINOPHIL % 7.3 % (0.8-7.0); EOSINOPHILS # 0.56 x10^3/uL (0.04-0.54); MCHC 31.2 g/dl (32.3-36.5); MEAN CELL VOLUME 95.8 fl (79.0-92.2); MEAN PLT VOLUME 9.6 fl (9.4-12.4); MONOCYTE # 0.84 x10^3/uL (0.30-0.82); MONOCYTE % 11.0 % (5.3-12.2); RDW 12.7 % (12.6-16.6)
[2025-08-10 10:23] LABS: GLUCOSE,RANDOM 125.0 mg/dL (74-106); TOT PROT 5.6 g/dl (6.4-8.2)
[2025-08-10 10:24] LABS: CO2 26.0 mmol/L (21-32)
[2025-08-10 10:25] LABS: ALK PHOS 64.0 U/L (40-150)
[2025-08-10 10:28] LABS: CREATININE 3.1 mg/dL (0.55-1.3); SGOT/AST 19.0 U/L (5-34); SGPT/ALT 9.0 U/L (0-55)
[2025-08-13 09:14] LABS: GLUCOSE,RANDOM 105.0 mg/dL (74-106); TOT PROT 5.3 g/dl (6.4-8.2)
[2025-08-13 09:16] LABS: CO2 23.0 mmol/L (21-32)
[2025-08-13 09:17] LABS: ALK PHOS 60.0 U/L (40-150)
[2025-08-13 09:20] LABS: CREATININE 3.31 mg/dL (0.55-1.3); SGOT/AST 18.0 U/L (5-34); SGPT/ALT 8.0 U/L (0-55)
[2025-08-14] MEDS: ACETAMINOPHEN 1000 MG/100 ML BAG IVPB PRN (10:54)
[2025-08-15 01:46] VITALS: RESP 18
[2025-08-15 06:26] VITALS: BP 125/66; PULSE 65; TEMP 98.7
[2025-08-15] MEDS ORDERED: ACETAMINOPHEN 325 MG TABLET (FP) PO PRN (10:43)
== END 2025-08-15 14:28 | DRG 291 ==
LOC: JER 13:33 → JERBED 18:47 → J4S 21:47 → OBSVTOIN 07-29 15:15
PROVIDERS: ADMIT Internal Medicine; ATTEND Internal Medicine
PROC: 0W9B30Z Drainage of Left Pleural Cavity with Drainage Device, Percutaneous Approach (ICD-10-PCS; principal; 2025-08-01)
PROC: 0WPBX0Z Removal of Drainage Device from Left Pleural Cavity, External Approach (ICD-10-PCS; 2025-08-12)
DX: I13.0 Hypertensive heart and chronic kidney disease with heart failure and stage 1 through stage 4 chronic kidney disease, or unspecified chronic kidney disease (principal); R53.2 Functional quadriplegia; E87.0 Hyperosmolality and hypernatremia; J90 Pleural effusion, not elsewhere classified; N17.9 Acute kidney failure, unspecified; J98.11 Atelectasis; J44.9 Chronic obstructive pulmonary disease, unspecified; E78.5 Hyperlipidemia, unspecified; F03.90 Unspecified dementia, unspecified severity, without behavioral disturbance, psychotic disturbance, mood disturbance, and anxiety; I50.9 Heart failure, unspecified; N18.2 Chronic kidney disease, stage 2 (mild); E11.22 Type 2 diabetes mellitus with diabetic chronic kidney disease; E11.51 Type 2 diabetes mellitus with diabetic peripheral angiopathy without gangrene; K21.9 Gastro-esophageal reflux disease without esophagitis; N40.0 Benign prostatic hyperplasia without lower urinary tract symptoms
CPT/HCPCS: 32552; 32555; 32557; 36415; 71045-TC-FY; 71046-TC-FY; 71250-TC; 74018-TC-FY; 74176-TC; 76705-TC; 80048; 80053; 81003; 82042; 82150; 82465; 82570; 82945; 82962; 83605; 83615; 83880; 83986; 84157; 84300; 84478; 85025; 85027; 85610; 85730; 86850; 86900; 86901; 87070; 87075; 87086; 87102; 87116; 87205; 87206; 87210; 87899; 88108; 88305-TC; 93005; 93010; 94640; 97161-GP; 99285-25; G0378